=== PATIENT | female | born 1970 | race African-American/Black ===

== ENCOUNTER 2017-01-28 15:53 | Emergency (ER) | payer MEDICARE, MEDICAID ==
--- NOTE | 2017-01-28 17:57 | ER Document Report ---
ED Medical Screen (RME) - General Chief Complaint: Headache Stated Complaint: WEAKNESS Time Seen by Provider: 01/28/17 17:45 Mode of Arrival: Ambulatory Information source: Patient, Relative TRAVEL OUTSIDE OF THE [place] IN LAST 30 DAYS: No - HPI Onset: This morning Onset/Duration: Gradual, Constant Quality of pain: Dull Associated Symptoms: None Exacerbated by: Denies Relieved by: Denies Notes: 01/28/17 17:54 Patient is a 46-year-old female with history of hypertension and diabetes. Patient is somewhat noncompliant with her medications. Patient states she has not been feeling well today. She took her blood pressure this morning and it was 199/134. Patient also reports a headache. Some nausea. No syncope. No focal neurologic complaints. No chest pain or shortness of breath. Patient does not check her blood sugars at home. - Related Data Allergies/Adverse Reactions: hydromorphone HCl [From Dilaudid] Allergy (Unknown, Verified 01/28/17 16:16) Hives Penicillins Allergy (Verified 01/28/17 16:16) Sulfa (Sulfonamide Antibiotics) Allergy (Verified 01/28/17 16:16) Past Medical History - Social History Frequency of alcohol use: None Drug Abuse: Marijuana - Past Medical History Cardiac Medical History: Reports: Hx Hypertension Pulmonary Medical History: Reports: Hx Asthma Denies: Hx Tuberculosis Endocrine Medical History: Reports: Hx Diabetes Mellitus Type 1, Hx Diabetes Mellitus Type 2 Renal/ Medical History: Denies: Hx Peritoneal Dialysis Musculoskeltal Medical History: Reports Hx Arthritis, Reports Hx Musculoskeletal Deformity, Reports Hx Musculoskeletal Trauma Traumatic Medical History: Reports: Hx Fractures Past Surgical History: Reports: Hx Abdominal Surgery, Hx Section, Hx Orthopedic Surgery - left leg surgery. Denies: Hx Appendectomy, Hx Bowel Surgery, Hx Cholecystectomy, Hx Coronary Artery Bypass Graft, Hx Gastric Bypass Surgery, Hx Herniorrhaphy, Hx Hysterectomy, Hx Mastectomy, Hx Pacemaker, Hx Tonsillectomy, Hx Tubal Ligation - Immunizations Immunizations up to date: Yes Hx Diphtheria, Pertussis, Tetanus Vaccination: Yes Review of Systems - Review of Systems Constitutional: Weakness Cardiovascular: No symptoms reported Respiratory: No symptoms reported Gastrointestinal: No symptoms reported Neurological/Psychological: Headaches -: Yes All other systems reviewed and negative Physical Exam - Vital signs Vitals: Temp Pulse Resp BP Pulse Ox 98.0 F 91 16 184/109 H 100 07/12/17 16:15 01/28/17 16:15 01/28/17 16:15 01/28/17 16:15 01/28/17 16:15 Interpretation: Normal, Other - Mildly hypertensive at 184/109 - General General appearance: Appears well, Alert - HEENT Head: Normocephalic, Atraumatic Eyes: Normal Pupils: PERRL - Respiratory Respiratory status: No respiratory distress Chest status: Nontender Breath sounds: Normal Chest palpation: Normal - Cardiovascular Rhythm: Regular Heart sounds: Normal auscultation Murmur: No - Abdominal Inspection: Normal Distension: No distension Bowel sounds: Normal Tenderness: Nontender Organomegaly: No organomegaly - Back Back: Normal, Nontender - Extremities General upper extremity: Normal inspection, Nontender, Normal color, Normal ROM , Normal temperature General lower extremity: Normal inspection, Nontender, Normal color, Normal ROM , Normal temperature, Normal weight bearing. No: Rick's sign - Neurological Neuro grossly intact: Yes Cognition: Normal Orientation: AAOx4 January Coma Scale Eye Opening: Spontaneous January Coma Scale Verbal: Oriented January Coma Scale Motor: Obeys Commands January Coma Scale Total: 15 Speech: Normal Motor strength normal: LUE, RUE, LLE, RLE Sensory: Normal - Psychological Associated symptoms: Normal affect, Normal mood - Skin Skin Temperature: Warm Skin Moisture: Dry Skin Color: Normal Course - Re-evaluation Re-evalutation: 01/28/17 17:56 Patient with history of poorly controlled hypertension and diabetes. Will check labs and head CT. Patient does have history of DKA. Patient will likely require further monitoring, and evaluation by ED provider in the back treatment area. - Vital Signs Vital signs: Temp Pulse Resp BP Pulse Ox 98.0 F 91 16 184/109 H 100 01/28/17 16:15 01/28/17 16:15 01/28/17 16:15 01/28/17 16:15 01/28/17 16:15
[2017-01-28 18:18] LABS: ABSOLUTE EOSINOPHILS # (AUTO) 0.4 10^3/uL (0.0-0.6); ABSOLUTE LYMPHOCYTES (AUTO) 1.8 10^3/uL (0.5-4.7); ABSOLUTE MONOCYTES (AUTO) 0.5 10^3/uL (0.1-1.4); ABSOLUTE NEUT (AUTO) 3.8 10^3/uL (1.7-8.2); BASOPHILS % (AUTO) 0.6 % (0-2); EOSINOPHILS % (AUTO) 5.8 % (0-6); HEMATOCRIT 42.5 % (36.0-47.0); HEMOGLOBIN 14.2 g/dL (12.0-15.5); HGB HCT DIFFERENCE 0.1; LYMPHOCYTES % (AUTO) 27.7 % (13-45); MEAN CORPUSCULAR HEMOGLOBIN 30.3 pg (27.0-33.4); MEAN CORPUSCULAR HGB CONC 33.4 g/dL (32.0-36.0); MEAN CORPUSCULAR VOLUME 91 fl (80-97); MONOCYTES % (AUTO) 7.8 % (3-13); RED BLOOD COUNT 4.69 10^6/uL (3.72-5.28); RED CELL DISTRIBUTION WIDTH 13.6 % (11.5-14.0); SEGMENTED NEUTROPHILS % (AUTO) 58.1 % (42-78); WHITE BLOOD COUNT 6.6 10^3/uL (4.0-10.5)
--- NOTE | 2017-01-28 18:22 | RADIOLOGY REPORT (SQ) ---
EXAM DESCRIPTION: CT HEAD WITHOUT COMPLETED DATE/TIME: 01/28/2017 6:11 pm REASON FOR STUDY: headache, htn COMPARISON: None. TECHNIQUE: Axial images acquired through the brain without intravenous contrast. Images reviewed wi th bone, brain and subdural windows. Images stored on PACS. All CT scanners at this facility use dose modulation, iterative reconstruction, and/or weight based d osing when appropriate to reduce radiation dose to as low as reasonably achievable (ALARA). [facility]: Dose Right [facility]: CareDose [facility]: Dose Right [facility]: Teradose 4D [facility]: [employer] RADIATION DOSE: mGy. LIMITATIONS: None. FINDINGS: VENTRICLES: Normal size and contour. CEREBRUM: No masses. No hemorrhage. No midline shift. Normal araya/white matter differentiation. N o evidence for acute infarction. CEREBELLUM: No masses. No hemorrhage. No alteration of density. No evidence for acute infarction. EXTRAAXIAL SPACES: No fluid collections. No masses. ORBITS AND GLOBE: No intra- or extraconal masses. Normal contour of globe without masses. CALVARIUM: No fracture. PARANASAL SINUSES: No fluid or mucosal thickening. SOFT TISSUES: No mass or hematoma. OTHER: No other significant finding. IMPRESSION: NORMAL BRAIN CT WITHOUT CONTRAST. TECHNICAL DOCUMENTATION: JOB ID: [id number] Quality ID # [id number]: Final reports with documentation of one or more dose reduction techniques (e.g., Au tomated exposure control, adjustment of the mA and/or kV according to patient size, use of iterative reconstruction technique) 2010 [email or web address]- All Rights Reserved
[2017-01-28 18:40] LABS: ALANINE AMINOTRANSFERASE 20 U/L (9-52); ALBUMIN 3.6 g/dL (3.5-5.0); ALKALINE PHOSPHATASE 150 U/L (38-126); ANION GAP 8 (5-19); ASPARTATE AMINO TRANSFERASE 20 U/L (14-36); BILIRUBIN,DIRECT 0.4 mg/dL (0.0-0.4); BILIRUBIN,TOTAL 0.7 mg/dL (0.2-1.3); BLOOD UREA NITROGEN 21 mg/dL (7-20); CALCIUM 9.6 mg/dL (8.4-10.2); CARBON DIOXIDE 28 mmol/L (22-30); CHLORIDE 102 mmol/L (98-107); CREATININE RESULT 0.82 mg/dL (0.52-1.25); GLUCOSE 225 mg/dL (75-110); POTASSIUM 4.2 mmol/L (3.6-5.0); SODIUM 138.3 mmol/L (137-145); TOTAL PROTEIN 7.2 g/dL (6.3-8.2)
[2017-01-28] MEDS ORDERED: CLONIDINE HCL 0.2 MG TABLET PO ONE (19:07)
[2017-01-28] MEDS ORDERED: HYDROCODONE/ACETAMINOPHEN 5-325 MG TABLET PO ONE (19:07)
[2017-01-28 19:09] VITALS: BP 184/114
== END 2017-01-28 19:15 | disposition home or self-care (01) ==
LOC: ER 15:53
DX: I10 Essential (primary) hypertension (principal); R51 Headache; R11.0 Nausea; R53.1 Weakness; E11.9 Type 2 diabetes mellitus without complications; J45.909 Unspecified asthma, uncomplicated; Z79.899 Other long term (current) drug therapy; Z91.14 Patient's other noncompliance with medication regimen; Z88.5 Allergy status to narcotic agent; Z88.0 Allergy status to penicillin; Z88.2 Allergy status to sulfonamides
CPT/HCPCS: 99284; 36415; 85025; 80053; 84484; 70450; A9270 ×2

== ENCOUNTER 2017-07-21 09:20 | Emergency (ER) | payer MEDICARE, MEDICAID ==
[2017-07-21] MEDS ORDERED: NORMAL SALINE 1000 ML 1,000 ML IV ONE (10:12)
[2017-07-21] MEDS ORDERED: LISINOPRIL 10 MG TABLET PO ONE (10:23)
[2017-07-21] MEDS ORDERED: AMLODIPINE BESYLATE 5 MG TABLET PO ONE (10:24)
[2017-07-21 10:55] LABS: ABSOLUTE EOSINOPHILS # (AUTO) 0.4 10^3/uL (0.0-0.6); ABSOLUTE LYMPHOCYTES (AUTO) 1.5 10^3/uL (0.5-4.7); ABSOLUTE MONOCYTES (AUTO) 0.4 10^3/uL (0.1-1.4); ABSOLUTE NEUT (AUTO) 3.5 10^3/uL (1.7-8.2); BASOPHILS % (AUTO) 0.6 % (0-2); HEMATOCRIT 40.2 % (36.0-47.0); HEMOGLOBIN 13.4 g/dL (12.0-15.5); LYMPHOCYTES % (AUTO) 26.2 % (13-45); MEAN CORPUSCULAR HEMOGLOBIN 29.7 pg (27.0-33.4); MEAN CORPUSCULAR HGB CONC 33.4 g/dL (32.0-36.0); MEAN CORPUSCULAR VOLUME 89 fl (80-97); MONOCYTES % (AUTO) 7.3 % (3-13); PLATELET COUNT 164 10^3/uL (150-450); RED BLOOD COUNT 4.52 10^6/uL (3.72-5.28); SEGMENTED NEUTROPHILS % (AUTO) 59.9 % (42-78); TOTAL CELLS COUNTED % (AUTO) 100 %; WHITE BLOOD COUNT 5.9 10^3/uL (4.0-10.5)
--- NOTE | 2017-07-21 11:03 | RADIOLOGY REPORT (SQ) ---
EXAM DESCRIPTION: CT HEAD WITHOUT COMPLETED DATE/TIME: 07/21/2017 10:55 am REASON FOR STUDY: syncope COMPARISON: 01/28/2017 TECHNIQUE: Axial images acquired through the brain without intravenous contrast. Images reviewed wi th bone, brain and subdural windows. Images stored on PACS. All CT scanners at this facility use dose modulation, iterative reconstruction, and/or weight based d osing when appropriate to reduce radiation dose to as low as reasonably achievable (ALARA). [facility]: Dose Right [facility]: CareDose [facility]: Dose Right [facility]: Teradose 4D [facility]: Smart [employer] RADIATION DOSE: CT Rad equipment meets quality standard of care and radiation dose reduction techniq ues were employed. CTDIvol: 64.6 mGy. DLP: 1163 mGy-cm. mGy. LIMITATIONS: None. FINDINGS: VENTRICLES: Normal size and contour. CEREBRUM: No masses. No hemorrhage. No midline shift. No evidence for acute infarction. Normal gra y/white matter differentiation. No areas of low density in the white matter. CEREBELLUM: No masses. No hemorrhage. No alteration of density. No evidence for acute infarction. EXTRAAXIAL SPACES: No fluid collections. No masses. ORBITS AND GLOBE: No intra- or extraconal masses. Normal contour of globe without masses. CALVARIUM: No fracture. PARANASAL SINUSES: No fluid or mucosal thickening. SOFT TISSUES: No mass or hematoma. OTHER: No other significant finding. IMPRESSION: NORMAL BRAIN CT WITHOUT CONTRAST. EVIDENCE OF ACUTE STROKE: NO. COMMENT: Quality ID # [id number]: Final reports with documentation of one or more dose reduction techniques (e.g., Automated exposure control, adjustment of the mA and/or kV according to patient size, use of iterative reconstruction technique) TECHNICAL DOCUMENTATION: JOB ID: [id number] [employer]- All Rights Reserved
[2017-07-21 11:04] LABS: INTERNATIONAL RATION (INR) 0.88; PROTHROMBIN TIME 12.6 SEC (11.4-15.4)
--- NOTE | 2017-07-21 11:07 | RADIOLOGY REPORT (SQ) ---
EXAM DESCRIPTION: CT CERVICAL SPINE WITHOUT COMPLETED DATE/TIME: 07/21/2017 10:55 am REASON FOR STUDY: syncope COMPARISON: None. TECHNIQUE: Axial images acquired through the cervical spine without intravenous contrast. Images re viewed with lung, soft tissue and bone windows. Reconstructed coronal and sagittal MPR images review ed. Images stored on PACS. All CT scanners at this facility use dose modulation, iterative reconstruction, and/or weight based d osing when appropriate to reduce radiation dose to as low as reasonably achievable (ALARA). [facility]: Dose Right [facility]: CareDose [facility]: Dose Right [facility]: Teradose 4D [facility]: [employer] RADIATION DOSE: CT Rad equipment meets quality standard of care and radiation dose reduction techniq ues were employed. CTDIvol: 16.4 mGy. DLP: 303 mGy-cm. mGy. LIMITATIONS: None. FINDINGS: ALIGNMENT: Anatomic. MINERALIZATION: Normal. VERTEBRAL BODIES: No fractures or dislocation. DISCS: Mild to moderate arthritic change mid cervical spine. FACETS, LATERAL MASSES, POSTERIOR ELEMENTS: No fractures. No dislocation. No acute findings. HARDWARE: None in the spine. VISUALIZED RIBS: Limited evaluation. LUNG APICES AND SOFT TISSUES: Limited evaluation OTHER: Minus calcification is seen posterior to the spinous processes. IMPRESSION: No acute fracture or dislocation identified. TECHNICAL DOCUMENTATION: JOB ID: [id number] Quality ID # [id number]: Final reports with documentation of one or more dose reduction techniques (e.g., Au tomated exposure control, adjustment of the mA and/or kV according to patient size, use of iterative reconstruction technique) 2010 [employer]- All Rights Reserved
--- NOTE | 2017-07-21 11:09 | RADIOLOGY REPORT (SQ) ---
EXAM DESCRIPTION: CHEST PA/LAT COMPLETED DATE/TIME: 07/21/2017 10:59 am REASON FOR STUDY: syncope COMPARISON: None. EXAM PARAMETERS: NUMBER OF VIEWS: two views TECHNIQUE: Digital Frontal and Lateral radiographic views of the chest acquired. RADIATION DOSE: NA LIMITATIONS: Poor inspiration. FINDINGS: LUNGS AND PLEURA: No opacities, masses or pneumothorax. No pleural effusion. MEDIASTINUM AND HILAR STRUCTURES: No masses or contour abnormalities. HEART AND VASCULAR STRUCTURES: Heart normal size. No evidence for failure. BONES: No acute findings. HARDWARE: None in the chest. OTHER: No other significant finding. IMPRESSION: NO SIGNIFICANT RADIOGRAPHIC FINDING IN THE CHEST. TECHNICAL DOCUMENTATION: JOB ID: [id number] [employer]- All Rights Reserved
[2017-07-21 11:22] LABS: CREATINE KINASE MB 1.1 ng/mL (<4.55); TROPONIN I 0.018 ng/mL
[2017-07-21 11:28] LABS: BLOOD UREA NITROGEN 20 mg/dL (7-20); CALCIUM 9.8 mg/dL (8.4-10.2); CHLORIDE 95 mmol/L (98-107); GLUCOSE 327 mg/dL (75-110); POTASSIUM 4.3 mmol/L (3.6-5.0)
[2017-07-21 11:29] LABS: ALANINE AMINOTRANSFERASE 15 U/L (9-52); ALBUMIN 3.6 g/dL (3.5-5.0); ALKALINE PHOSPHATASE 163 U/L (38-126); ANION GAP 7 (5-19); ASPARTATE AMINO TRANSFERASE 24 U/L (14-36); BILIRUBIN,DIRECT 0.3 mg/dL (0.0-0.4); BILIRUBIN,TOTAL 0.4 mg/dL (0.2-1.3); CARBON DIOXIDE 34 mmol/L (22-30); CREATINE KINASE 72 U/L (30-135); SODIUM 135.7 mmol/L (137-145); TOTAL PROTEIN 6.8 g/dL (6.3-8.2)
[2017-07-21 13:29] VITALS: BP 149/92
[2017-07-21] MEDS ORDERED: PROCHLORPERAZINE EDISYLATE INJ 10 MG/2 ML VIAL IV ONE (13:50)
[2017-07-21] MEDS ORDERED: ONDANSETRON HCL INJ/PF 4 MG/2 ML SDV IV ONE (13:50)
--- NOTE | 2017-07-21 13:55 | ER Document Report ---
ED General - General Chief Complaint: Low Blood Sugar Stated Complaint: LOW BLOOD SUGAR Time Seen by Provider: 07/21/17 10:11 TRAVEL OUTSIDE OF THE [place] IN LAST 30 DAYS: No - HPI Patient complains to provider of: Syncope low blood sugar Notes: Patient coming in for evaluation of syncopal episode while at the grocery store. Patient states that she was walking outside when she felt lightheaded dizzy week and was lowered onto the ground. Patient did not hit her head according to the bystanders at bedside. Patient states that she was lowered gently. Patient states that she was feeling out of it however was able to tolerate glucose tablets and sugar at the store. Patient now is complaining of hip pain and right shoulder pain. Patient denies any fevers chills nausea vomiting diarrhea recent changes to her medications. Patient states her blood sugar normally runs between 200-300. Accu-Chek here was below 200. Patient is hypertensive patient states she did not take her blood pressure medications today. - Related Data Allergies/Adverse Reactions: hydromorphone HCl [From Dilaudid] Allergy (Unknown, Verified 07/21/17 09:22) Hives Penicillins Allergy (Verified 07/21/17 09:22) Sulfa (Sulfonamide Antibiotics) Allergy (Verified 07/21/17 09:22) Past Medical History - Social History Smoking Status: Former Smoker Chew tobacco use (# tins/day): No Frequency of alcohol use: None Drug Abuse: None Family History: DM Patient has suicidal ideation: No Patient has homicidal ideation: No - Past Medical History Cardiac Medical History: Reports: Hx Hypertension Pulmonary Medical History: Reports: Hx Asthma Denies: Hx Tuberculosis Endocrine Medical History: Reports: Hx Diabetes Mellitus Type 1, Hx Diabetes Mellitus Type 2 Renal/ Medical History: Denies: Hx Peritoneal Dialysis GI Medical History: Reports: Hx Pancreatitis Musculoskeltal Medical History: Reports Hx Arthritis, Reports Hx Musculoskeletal Deformity, Reports Hx Musculoskeletal Trauma Traumatic Medical History: Reports: Hx Fractures Past Surgical History: Reports: Hx Abdominal Surgery, Hx Section, Hx Orthopedic Surgery - left leg surgery. Denies: Hx Appendectomy, Hx Bowel Surgery, Hx Cholecystectomy, Hx Coronary Artery Bypass Graft, Hx Gastric Bypass Surgery, Hx Herniorrhaphy, Hx Hysterectomy, Hx Mastectomy, Hx Pacemaker, Hx Tonsillectomy, Hx Tubal Ligation - Immunizations Immunizations up to date: Yes Hx Diphtheria, Pertussis, Tetanus Vaccination: Yes Hx Pneumococcal Vaccination: 07/20/10 Review of Systems - Review of Systems Constitutional: No symptoms reported EENT: No symptoms reported Cardiovascular: Syncope Respiratory: No symptoms reported Gastrointestinal: No symptoms reported Genitourinary: No symptoms reported Female Genitourinary: No symptoms reported Musculoskeletal: No symptoms reported Skin: No symptoms reported Hematologic/Lymphatic: No symptoms reported Neurological/Psychological: No symptoms reported -: Yes All other systems reviewed and negative Physical Exam - Vital signs Vitals: Temp Pulse Resp BP Pulse Ox 98.3 F 87 16 194/120 H 100 07/21/17 09:27 07/21/17 09:27 07/21/17 09:27 07/21/17 09:27 07/21/17 09:27 Interpretation: Hypertensive - General General appearance: Appears well, Alert - HEENT Head: Normocephalic, Atraumatic Eyes: Normal Pupils: PERRL - Respiratory Respiratory status: No respiratory distress Chest status: Nontender Breath sounds: Normal Chest palpation: Normal - Cardiovascular Rhythm: Regular Heart sounds: Normal auscultation Murmur: No - Abdominal Inspection: Normal Distension: No distension Bowel sounds: Normal Tenderness: Nontender Organomegaly: No organomegaly - Back Back: Normal, Nontender - Extremities General upper extremity: Normal inspection, Nontender, Normal color, Normal ROM , Normal temperature General lower extremity: Normal inspection, Nontender, Normal color, Normal ROM , Normal temperature, Normal weight bearing. No: Rick's sign - Neurological Neuro grossly intact: Yes Cognition: Normal Orientation: AAOx4 [place] Coma Scale Eye Opening: Spontaneous [place] Coma Scale Verbal: Oriented January Coma Scale Motor: Obeys Commands January Coma Scale Total: 15 Speech: Normal Motor strength normal: LUE, RUE, LLE, RLE Sensory: Normal - Psychological Associated symptoms: Normal affect, Normal mood - Skin Skin Temperature: Warm Skin Moisture: Dry Skin Color: Normal Course - Re-evaluation Re-evalutation: 07/21/17 15:04 The patient presents with headache without signs of MANAGER PROTEIN bleed, stroke, infection , or other serious etiology. The patient is neurologically intact. Given the extremely low risk of these diagnoses further testing and evaluation for these possibilities does not appear to be indicated at this time. The patient has been instructed to return if the symptoms worsen or change in any way.. The patient has syncope as the patient's syncope is not suggestive of pulmonary embolus, cardiac ischemia, aortic dissection, or other serious etiology. Given the extremely low risk of these diagnoses further testing and evaluation for these possibilities does not appear to be indicated at this time. The patient has been instructed to return if the symptoms worsen or change in any way. - Vital Signs Vital signs: Temp Pulse Resp BP Pulse Ox 98.3 F 87 17 149/92 H 100 07/21/17 09:27 07/21/17 09:27 07/21/17 14:00 07/21/17 13:01 07/21/17 14:00 - Laboratory Result Diagrams: 07/21/17 10:35 07/21/17 10:35 Laboratory results interpreted by me: 07/21/17 07/21/17 07/21/17 09:25 10:35 12:25 Sodium 135.7 L Chloride 95 L Carbon Dioxide 34 H Glucose 327 H POC Glucose 192 H Alkaline Phosphatase 163 H Urine Protein 30 H Urine Glucose (UA) >=500 H Ur Leukocyte Esterase TRACE H Discharge - Discharge Clinical Impression: Syncope Qualifiers: Syncope type: unspecified Qualified Code(s): R55 - Syncope and collapse Diabetes Qualifiers: Diabetes mellitus type: type 1 Diabetes mellitus complication status: with unspecified complications Qualified Code(s): E10.8 - Type 1 diabetes mellitus with unspecified complications Hypertension Qualifiers: Hypertension type: unspecified Qualified Code(s): I10 - Essential (primary) hypertension Headache Qualifiers: Headache type: unspecified Headache chronicity pattern: unspecified pattern Intractability: not intractable Qualified Code(s): R51 - Headache Condition: Good Disposition: HOME, SELF-CARE Instructions: Diabetes ([facility]), Headache ([facility]), Syncopal Episode ([facility]) Additional Instructions: Your laboratory studies not show any acute findings no signs of significant infection or electrolyte abnormalities your CT of her head neck and chest x-ray are all normal to as well. At this time do not have a clear reason why she passed out today would highly recommend he drink plenty fluids to stay hydrated return to ER symptoms worsen. Follow-up with your primary care physician in 3- 5 days Prescriptions: Prochlorperazine Maleate [Compazine] 5 mg PO Q6 PRN #30 tablet PRN Reason: Referrals: LYLE ROBERSON DO [Primary Care Provider] - Follow up as needed
[2017-07-21 14:30] LABS: APPEARANCE,URINE SLIGHTLY-CLOUDY; BILIRUBIN,URINE NEGATIVE (NEGATIVE); COLOR,URINE YELLOW; GLUCOSE, URINE >=500 mg/dL (NEGATIVE); KETONES,URINE NEGATIVE (NEGATIVE); LEUKOCYTE ESTERASE,URINE TRACE (NEGATIVE); NITRITE,URINE NEGATIVE (NEGATIVE); PROTEIN,URINE 30 mg/dL (NEGATIVE); URINE SPECIFIC GRAVITY 1.015; UROBILINOGEN,URINE NEGATIVE mg/dL (<2.0)
--- NOTE | 2017-07-22 10:38 | EKG REPORT ---
SEVERITY:- ABNORMAL ECG - SINUS RHYTHM NONSPECIFIC T ABNORMALITIES, DIFFUSE LEADS : Confirmed by: Magali Leyva 22-Jul-2017 10:36:43
== END 2017-07-21 14:14 | disposition home or self-care (01) ==
LOC: ER 09:20
DX: R55 Syncope and collapse (principal); E10.8 Type 1 diabetes mellitus with unspecified complications; I10 Essential (primary) hypertension; Z87.891 Personal history of nicotine dependence
CPT/HCPCS: 93005; 99285; 96361; 96374; 96375; 36415; 82553; 82962; 82550; 85025; 85610; 80053; 81001; 84484; 71046; 70450; 72125; 93010; A9270 ×2; J0780; J2405; J7030

== ENCOUNTER 2017-08-16 10:31 | Emergency (ER) | payer MEDICARE, MEDICAID ==
--- NOTE | 2017-08-16 10:47 | ER Document Report ---
ED Medical Screen (RME) - General Chief Complaint: Abdominal Pain Stated Complaint: STOMACH/BACK PAIN Time Seen by Provider: 08/16/17 10:44 Mode of Arrival: Ambulatory Information source: Patient Notes: 47 yr old female with hx of diabetes presents with complaints of LUQ pain. Pt has hx of chronic pancreatitis I have greeted and performed a rapid initial assessment of this patient. A comprehensive ED assessment and evaluation of the patient, analysis of test results and completion of the medical decision making process will be conducted by additional ED providers. PHYSICAL EXAMINATION: GENERAL: Well-appearing, well-nourished and in no acute distress. HEAD: Atraumatic, normocephalic. EYES: Pupils equal round extraocular movements intact, conjunctiva are normal. ENT: Nares patent NECK: Normal range of motion Heart: Tachycardic LUNGS: No respiratory distress Musculoskeletal: Normal range of motion NEUROLOGICAL: Normal speech, normal gait. PSYCH: Normal mood, normal affect. SKIN: Warm, Dry, normal turgor, no rashes or lesions noted. TRAVEL OUTSIDE OF THE [place] IN LAST 30 DAYS: No - Related Data Allergies/Adverse Reactions: hydromorphone HCl [From Dilaudid] Allergy (Unknown, Verified 08/16/17 10:32) Hives Penicillins Allergy (Verified 08/16/17 10:32) Sulfa (Sulfonamide Antibiotics) Allergy (Verified 08/16/17 10:32) Past Medical History - Past Medical History Cardiac Medical History: Reports: Hx Hypertension Pulmonary Medical History: Reports: Hx Asthma Denies: Hx Tuberculosis Endocrine Medical History: Reports: Hx Diabetes Mellitus Type 1, Hx Diabetes Mellitus Type 2 Renal/ Medical History: Denies: Hx Peritoneal Dialysis GI Medical History: Reports: Hx Pancreatitis Musculoskeltal Medical History: Reports Hx Arthritis, Reports Hx Musculoskeletal Deformity, Reports Hx Musculoskeletal Trauma Traumatic Medical History: Reports: Hx Fractures Past Surgical History: Reports: Hx Abdominal Surgery, Hx Section, Hx Orthopedic Surgery - left leg surgery. Denies: Hx Appendectomy, Hx Bowel Surgery, Hx Cholecystectomy, Hx Coronary Artery Bypass Graft, Hx Gastric Bypass Surgery, Hx Herniorrhaphy, Hx Hysterectomy, Hx Mastectomy, Hx Pacemaker, Hx Tonsillectomy, Hx Tubal Ligation - Immunizations Immunizations up to date: Yes Hx Diphtheria, Pertussis, Tetanus Vaccination: Yes Physical Exam - Vital signs Vitals: Temp Pulse Resp BP Pulse Ox 97.8 F 114 H 18 143/93 H 100 08/16/17 10:36 08/16/17 10:36 08/16/17 10:36 08/16/17 10:36 08/16/17 10:36 Course - Vital Signs Vital signs: Temp Pulse Resp BP Pulse Ox 97.8 F 114 H 18 143/93 H 100 08/16/17 10:36 08/16/17 10:36 08/16/17 10:36 08/16/17 10:36 08/16/17 10:36
[2017-08-16] MEDS ORDERED: MORPHINE SULFATE 10 MG/ML INJ IV ONE (10:48)
[2017-08-16] MEDS ORDERED: INSULIN REG, HUMAN 100 UNIT/ML 3 ML VIAL (PYX) IV ONE (10:48)
[2017-08-16] MEDS ORDERED: NORMAL SALINE 1000 ML 1,000 ML IV ONE (10:48)
[2017-08-16] MEDS ORDERED: ONDANSETRON HCL INJ/PF 4 MG/2 ML SDV IV ONE (10:48)
--- NOTE | 2017-08-16 11:53 | ER Document Report ---
ED GI/ - General Chief Complaint: Abdominal Pain Stated Complaint: STOMACH/BACK PAIN Time Seen by Provider: 08/16/17 10:44 Mode of Arrival: Ambulatory Notes: Patient is complaining of pain in the epigastric and left upper quadrant region of the abdomen for a couple of days. She says the pain goes into her back. Patient has a history of chronic pancreatitis, and she had a pancreatic cyst removed in [place] in 2004. Ever since then, she has had occasional episodes of pancreatitis. She was at this hospital a couple of years ago when she had her last flare of the pancreatitis. She is nauseated but not vomiting. Has not had any diarrhea. Not having any fever. Patient has a history of insulin-dependent diabetes and her blood sugars have been running high. TRAVEL OUTSIDE OF THE [place] IN LAST 30 DAYS: No - Related Data Allergies/Adverse Reactions: hydromorphone HCl [From Dilaudid] Allergy (Unknown, Verified 08/16/17 10:32) Hives Penicillins Allergy (Verified 08/16/17 10:32) Sulfa (Sulfonamide Antibiotics) Allergy (Verified 08/16/17 10:32) Past Medical History - General Information source: Patient - Social History Smoking Status: Current Every Day Smoker Chew tobacco use (# tins/day): No Frequency of alcohol use: None Drug Abuse: Marijuana Family History: Reviewed & Not Pertinent, DM Patient has suicidal ideation: No Patient has homicidal ideation: No - Past Medical History Cardiac Medical History: Reports: Hx Hypertension Pulmonary Medical History: Reports: Hx Asthma Denies: Hx Tuberculosis Endocrine Medical History: Reports: Hx Diabetes Mellitus Type 1, Hx Diabetes Mellitus Type 2 GI Medical History: Reports: Hx Pancreatitis Musculoskeltal Medical History: Reports Hx Arthritis, Reports Hx Musculoskeletal Deformity, Reports Hx Musculoskeletal Trauma Traumatic Medical History: Reports: Hx Fractures Past Surgical History: Reports: Hx Abdominal Surgery - For pancreatic cyst in 2004, Hx Section, Hx Orthopedic Surgery - left leg surgery - Immunizations Immunizations up to date: Yes Hx Diphtheria, Pertussis, Tetanus Vaccination: Yes Hx Pneumococcal Vaccination: 07/20/10 Review of Systems - Review of Systems Notes: REVIEW OF SYSTEMS: CONSTITUTIONAL : Denies fever. EENT: Denies eye, ear, nose or mouth or throat pain or other symptoms. CARDIOVASCULAR: Denies chest pain. RESPIRATORY: Denies cough, chest congestion, or shortness of breath. GASTROINTESTINAL: See HPI. GENITOURINARY: Denies difficulty or painful urinating, urinary frequency, blood in urine. MUSCULOSKELETAL: Denies neck pain. Denies joint pain or swelling. Complains of pain in her back from the front where she has her pain in the left upper quadrant and epigastrium. No back spinal pain. SKIN: Denies rash or skin lesions. NEUROLOGICAL: Denies LOC or altered mental status. Denies headache. Denies sensory loss or motor deficits. ALL OTHER SYSTEMS REVIEWED AND NEGATIVE. Physical Exam - Vital signs Vitals: Temp Pulse Resp BP Pulse Ox 97.8 F 114 H 18 143/93 H 100 08/16/17 10:36 08/16/17 10:36 08/16/17 10:36 08/16/17 10:36 08/16/17 10:36 Interpretation: Tachycardic - Notes Notes: PHYSICAL EXAMINATION: GENERAL: Anxious, appears to be in pain. HEAD: Atraumatic, normocephalic. EYES: Pupils equal round and reactive to light, extraocular movements intact. ENT: oropharynx clear without exudates. Moist mucous membranes. NECK: Normal range of motion, supple. LUNGS: Breath sounds clear and equal bilaterally. HEART: Regular rate and rhythm without murmurs. ABDOMEN: Soft, tender in the epigastrium and in the left upper quadrant. No masses felt. No bruits heard. Some mild guarding, but no rebound. Bowel sounds are present. In retrospect, after seeing the patient CT scan results, there is mentioned a hernia of the ventral wall on the left side of the abdomen and on examination, there is some fullness noted there to palpation, and some tenderness, but certainly no evidence of incarceration of bowel. This area is around the patient's old incision in the left upper quadrant where she had her pancreatic cyst removed. Back: No tenderness throughout entire back. EXTREMITIES: Normal range of motion without pain. NEUROLOGICAL: Normal speech, normal gait. Normal sensory, motor, and reflex exams. Awake, alert, and oriented x3. Cranial nerves normal. PSYCH: Normal mood, normal affect. SKIN: Warm, dry, no rashes. Course - Re-evaluation Re-evalutation: 08/16/17 19:05 As we were about to discharge the patient, discharge vital signs were taken and patient systolic blood pressure was noted to be over 200. Patient is currently not taking any medications for her high blood pressure, although she listed it as a condition and her past medical history. Patient's being given the pill of lisinopril 20 mg--HCTZ 12.5 mg. I also wrote her a prescription for the same medication daily until she follows up with her primary care provider soon. - Vital Signs Vital signs: Temp Pulse Resp BP Pulse Ox 97.8 F 87 18 222/108 H 100 08/16/17 18:34 08/16/17 18:34 08/16/17 18:34 08/16/17 18:40 08/16/17 18:34 - Laboratory Result Diagrams: 08/16/17 11:30 08/16/17 13:00 Laboratory results interpreted by me: 08/16/17 08/16/17 08/16/17 11:30 12:35 13:00 RBC 5.46 H Hgb 16.4 H Hct 48.9 H RDW 14.4 H Sodium 134.8 L Glucose 357 H POC Glucose AST 39 H Alkaline Phosphatase 175 H Lipase 391.7 H Urine Glucose (UA) >=500 H Urine Ketones TRACE H Ur Leukocyte Esterase TRACE H 08/16/17 15:52 RBC Hgb Hct RDW Sodium Glucose POC Glucose 266 H AST Alkaline Phosphatase Lipase Urine Glucose (UA) Urine Ketones Ur Leukocyte Esterase Lipase of 397 noted. Not really high enough to diagnose pancreatitis. - Diagnostic Test Radiology reviewed: Image reviewed, Reports reviewed - CT scan of the abdomen reveals no evidence of an acute pancreatitis. Patient has large amount of stool in diagnosed with constipation by the radiologist. Also noted that the patient has a left upper quadrant hernia of the abdominal wall. No evidence of bowel incarceration there on CT scan. Discharge - Discharge Clinical Impression: Hypertension Abdominal pain Qualifiers: Abdominal location: left upper quadrant Qualified Code(s): R10.12 - Left upper quadrant pain Pancreatitis Qualifiers: Chronicity: chronic Pancreatitis type: unspecified pancreatitis type Qualified Code(s): K86.1 - Other chronic pancreatitis Condition: Stable Disposition: HOME, SELF-CARE Additional Instructions: ABDOMINAL PAIN: There are many causes of abdominal pain. Pain can mean a serious problem requiring surgery (such as appendicitis). It can also be an innocent problem that goes away on its own (such as a viral infection). Often, time must pass to determine the cause of pain. The physician does not feel that hospitalization is necessary, at present. Things may change within the next 24 hours. Call the doctor or come back for re- examination if any problems occur, such as: (1) Pain that becomes more severe, steady, or becomes concentrated in one specific area. Also, pain that is more severe with movement or coughing. (2) Vomiting that persists or becomes more frequent. (3) Blood in the vomitus, urine, or bowel movements. Blood in the stool may have a tarry or black appearance. (4) Shaking chills or fever greater than 100 degrees F. (5) The abdomen becomes more distended or swollen. (6) Bowel movements cease. (7) Failure to improve as expected. Mild, Chronic pancreatitis Pancreatitis is an inflammation of the pancreas, an organ at the back of your abdomen. The pancreas produces insulin and enzymes that digest your food. Pancreatitis can be caused by gallstones in the bile duct, by alcohol or viruses, or by excess fat or calcium in the blood stream. Occasionally, pancreatitis occurs when a stomach ulcer vazquez through into the pancreas. We try to find the cause of pancreatitis, but some tests can't be done until the pancreas heals. The usual symptoms of pancreatitis are pain in the pit of the stomach that goes straight through to the back, vomiting, and low-grade fever. Severe cases require hospital admission, but many patients with mild pancreatitis do well at home. You will probably need medicine for pain and for vomiting. Sometimes we prescribe medicine to decrease stomach acid secretion and to decrease flow of pancreatic juices. Start with a diet of clear liquids (soda pop, juices). When the pain is decreasing, you can add some simple starches (potato, toast, applesauce). Avoid proteins and fats until you are completely painfree. When you're better, your doctor may suggest treatment to prevent future pancreatitis (such as gallbladder removal). Avoid alcohol forever. Get immediate treatment for any future episodes. Contact your doctor at once or return here if you have increasing pain, shortness of breath, general swelling, increasing size of the abdomen, continued vomiting, muscle spasms, or other new symptoms. PAIN MEDICATION INJECTION: You have received an injection of a pain medication. You should experience significant pain relief within 45 minutes. This drug is a narcotic - - it will impair your judgement, slow your reaction time and make you sleepy ( as well as relieve your pain). Narcotics also can cause nausea. You should not drive, work with machinery, or perform any task requiring mental alertness until all effects of the medication are gone -- six to eight hours. Do not take any alcohol, or sedatives, and do not take any other medication without checking with your physician. ORAL NARCOTIC MEDICATION: You have been given a prescription for pain control. This medication is a narcotic. It's best taken with food, as nausea can result if taken on an empty stomach. Don't operate machinery or drive within six hours of taking this medication. Do not combine this medicine with alcohol, or with any medication which can cause sedation (such as cold tablets or sleeping pills) unless you get permission from the physician. Narcotics tend to cause constipation. If possible, drink plenty of fluids and eat a diet high in fiber and fruits. Hernia You have a hernia of your left abdominal wall a hernia forms at a weak spot in the abdominal wall. Bowel slips out of the abdominal cavity into the weak spot. Hernias tend to occur in the groin (especially in males), the fold of the thigh, the naval, or at a surgical scar. Surgical repair of the defect is usually necessary. The problem tends to get worse. It's important that you follow up as recommended. For now, you should avoid straining, heavy lifting, and vigorous exercise. Complications occur if the hernia becomes tightly stuck. You should come back immediately if the area becomes increasingly painful, swollen, or discolored, or if you develop abdominal pain and vomiting. CONSTIPATION: Constipation is a common problem. It is especially likely as you get older. Constipation is a common cause of abdominal pain, but sometimes causes no symptoms at all. Causes of constipation include certain medications, dehydration, diets, inactivity, and low-fiber intake. Rarely, it can be a symptom of underlying disease. The physician has evaluated you for this. Avoid constipation by eating a diet high in fiber, fruits, and vegetables. Drink plenty of liquids. Get regular exercise. If possible, avoid constipating medicines like narcotic pain medication. Some vitamin tablets can cause constipation. Stool softeners may be needed for difficult cases. An excellent stool softener is Konsyl which is available at [employer], and [employer]. Just add a teaspoon to a glass of pineapple or orange juice daily or twice a day if needed. Laxatives are useful for occasional constipation. You should use them only when necessary. Too-frequent use can make your bowels dependent on them. Some over the counter laxatives available without prescription are: Milk of Magnesia, 1-2 tablespoons twice a day Dulcolax, 5 mg pill or 10 mg suppository. Citrate of Magnesia, 4-5 ounces a day for a day or two For acute constipation, Fleet's Enemas and Dulcolax suppositories are helpful. Chronic, terminal gauger supervisor use of laxatives or enemas is not a good idea. Your bowel may become dependant on them. You do not need to have a bowel movement every day. Many people do fine with a bowel movement every three or four days. You should call your doctor or return for re-evaluation if you pass blood in the stool, or if you develop fever or increasing abdominal pain. BULK LAXATIVES: Bulk laxatives make the stool softer and bulkier. They're useful for preventing constipation. You can choose between psyllium, methylcellulose, and polycarbophil. They are available without a prescription. Psyllium brand names include Konsyl, Metamucil, Perdiem, Effer-Syllium and Hydrocil. It's available as powder, flavored drink powder, or chewable. The usual dose of psyllium powder is one heaping teaspoon in water each morning, increasing to twice a day if needed. [place] juice can disguise the slightly grainy texture. Methylcellulose is marketed as Citrucel and other brands. The average dose is two grams in a cup of water one to three times a day. Polycarbophil is marketed as Fiber-Con. Take two tablets with a cup of water one to three times a day. FOLLOW-UP CARE: If you have been referred to a physician for follow-up care, call the physician s office for an appointment as you were instructed or within the next two days. If you experience worsening or a significant change in your symptoms, notify the physician immediately or return to the Emergency Department at any time for re-evaluation. Follow-up with Dr. Waller, your primary care doctor, regarding her pain management. Chronic Pain Control Stress, inactivity, and depression make pain more severe regardless of the cause of the pain. Stress and poor physical condition can cause pain such as headaches and backache. Relaxation: Rest in a quiet place with your eyes closed for 20 minutes twice daily. Concentrate on a pleasant image, or simply "feel" your breathing. Clear your mind. Stress management: Deal with your "stressors." Either take action, or eliminate the stressor from your life. Don't let things hang over you. Accept those things you can't change. Nutrition: Eat small, balanced meals -- don't skip, don't overeat. Meals should be high-carbohydrate, low-sugar, low-fat. Exercise: Exercise helps painful conditions and eases stress. Get 30 minutes of moderate exercise, five days a week. Do an activity that does not flare your pain. Precautions: Pain which continues to disrupt daily activities, or which changes in nature, requires a medical evaluation. Pain Clinic referral is available. We do not manage chronic pain in the Emergency Department. We will try to appropriately help you through an acute flare of your chronic painful condition , but for on-going chronic pain that does not improve, you will need to see your private doctor or painter supervisor. We do not provide repeated medication management of chronic painful conditions. If you wish, we can provide the name of local pain management physicians. Prescriptions: Oxycodone HCl/Acetaminophen [Percocet 5-325 mg Tablet] 1 - 2 tab PO Q4HP PRN #8 tablet PRN Reason: Lisinopril/Hydrochlorothiazide [Lisinopril-Hctz 20-12.5 mg Tab] 1 each PO DAILY #15 tablet Referrals: LYLE WALLER DO [Primary Care Provider] - Follow up as needed
[2017-08-16 12:05] LABS: ABSOLUTE EOSINOPHILS # (AUTO) 0.2 10^3/uL (0.0-0.6); ABSOLUTE LYMPHOCYTES (AUTO) 1.3 10^3/uL (0.5-4.7); ABSOLUTE MONOCYTES (AUTO) 0.3 10^3/uL (0.1-1.4); ABSOLUTE NEUT (AUTO) 4.1 10^3/uL (1.7-8.2); BASOPHILS % (AUTO) 0.6 % (0-2); EOSINOPHILS % (AUTO) 3.8 % (0-6); HEMATOCRIT 48.9 % (36.0-47.0); HEMOGLOBIN 16.4 g/dL (12.0-15.5); LYMPHOCYTES % (AUTO) 22.3 % (13-45); MEAN CORPUSCULAR HGB CONC 33.5 g/dL (32.0-36.0); MEAN CORPUSCULAR VOLUME 90 fl (80-97); PLATELET COUNT 186 10^3/uL (150-450); RED BLOOD COUNT 5.46 10^6/uL (3.72-5.28); RED CELL DISTRIBUTION WIDTH 14.4 % (11.5-14.0); SEGMENTED NEUTROPHILS % (AUTO) 68.3 % (42-78); TOTAL CELLS COUNTED % (AUTO) 100 %
[2017-08-16] MEDS ORDERED: HYDROMORPHONE HCL INJ/PF 2 MG/ML AMPULE IV ONE ×2 (13:10→16:02)
[2017-08-16] MEDS ORDERED: DIPHENHYDRAMINE HCL 50 MG/ML VIAL IV ONE (13:11)
[2017-08-16 13:12] LABS: APPEARANCE,URINE SLIGHTLY-CLOUDY; BILIRUBIN,URINE NEGATIVE (NEGATIVE); COLOR,URINE STRAW; GLUCOSE, URINE >=500 mg/dL (NEGATIVE); KETONES,URINE TRACE mg/dL (NEGATIVE); LEUKOCYTE ESTERASE,URINE TRACE (NEGATIVE); NITRITE,URINE NEGATIVE (NEGATIVE); PROTEIN,URINE NEGATIVE (NEGATIVE); UROBILINOGEN,URINE NEGATIVE mg/dL (<2.0)
[2017-08-16 13:13] LABS: VENOUS BLOOD BASE EXCESS -0.1 mmol/L; VENOUS BLOOD HCO3 27.1 mmol/L (20-32); VENOUS BLOOD PCO2 54.4 mmHg (35-63); VENOUS BLOOD PH 7.32 (7.30-7.42)
[2017-08-16 13:29] LABS: ALANINE AMINOTRANSFERASE 15 U/L (9-52); ALBUMIN 3.7 g/dL (3.5-5.0); ALKALINE PHOSPHATASE 175 U/L (38-126); ANION GAP 7 (5-19); ASPARTATE AMINO TRANSFERASE 39 U/L (14-36); BILIRUBIN,DIRECT 0.3 mg/dL (0.0-0.4); BILIRUBIN,TOTAL 0.6 mg/dL (0.2-1.3); BLOOD UREA NITROGEN 18 mg/dL (7-20); CALCIUM 9.8 mg/dL (8.4-10.2); CARBON DIOXIDE 29 mmol/L (22-30); CHLORIDE 99 mmol/L (98-107); GLUCOSE 357 mg/dL (75-110); LIPASE 391.7 U/L (23-300); POTASSIUM 4.1 mmol/L (3.6-5.0); SODIUM 134.8 mmol/L (137-145); TOTAL PROTEIN 7.1 g/dL (6.3-8.2)
[2017-08-16 13:55] LABS: URINE AMPHETAMINES SCREEN NEGATIVE; URINE BARBITURATES SCREEN NEGATIVE; URINE BENZODIAZEPINES SCREEN NEGATIVE; URINE COCAINE SCREEN NEGATIVE; URINE MARIJUANA (THC) SCREEN UNCONFIRMED POSITIVE; URINE METHADONE SCREEN NEGATIVE; URINE PHENCYCLIDINE SCREEN NEGATIVE
--- NOTE | 2017-08-16 16:43 | RADIOLOGY REPORT (SQ) ---
EXAM DESCRIPTION: CT ABD/PELVIS WITH IV ORAL COMPLETED DATE/TIME: 08/16/2017 4:23 pm REASON FOR STUDY: Epig, LUQ pain, Hx pancreatitis, cyst [id number] COMPARISON: CT abdomen and pelvis 10/04/2011, 08/11/2010 TECHNIQUE: CT scan of the abdomen and pelvis performed using helical scanning technique with dynamic intravenous contrast injection. Oral contrast was also administered. Images reviewed with lung, sof t tissue, and bone windows. Reconstructed coronal and sagittal MPR images reviewed. Delayed images fo r evaluation of the urinary system also acquired. All images stored on PACS. All CT scanners at this facility use dose modulation, iterative reconstruction, and/or weight based d osing when appropriate to reduce radiation dose to as low as reasonably achievable (ALARA). [facility]: Dose Right [facility]: CareDose [facility]: Dose Right [facility]: Teradose 4D [facility]: Medxnote CONTRAST TYPE AND DOSE: contrast/concentration: Isovue 370.00 mg/ml; Total Contrast Delivered: 57.0 ml; Total Saline Delivered: 38.1 ml RENAL FUNCTION: Creatinine 0.84 RADIATION DOSE: CT Rad equipment meets quality standard of care and radiation dose reduction techniq ues were employed. CTDIvol: 4.8 - 6.0 mGy. DLP: 538 mGy-cm.. LIMITATIONS: None. FINDINGS: LOWER CHEST: No consolidation or pleural effusion. LIVER: There is an elongated left hepatic lobe extending anterior to the stomach and spleen. No uriah s. No dilated ducts. SPLEEN: Normal size. PANCREAS: No significant calcifications. No adjacent inflammation or peripancreatic fluid collections . Pancreatic duct not dilated. GALLBLADDER: No identified stones by CT criteria. No inflammatory changes to suggest cholecystitis. ADRENAL GLANDS: No significant masses or asymmetry. RIGHT KIDNEY AND URETER: No significant calcifications. No hydronephrosis or hydroureter. LEFT KIDNEY AND URETER: Atrophic left kidney with cortical scarring and heterogeneous enhancement, si milar appearance with the comparison study. No significant calcifications. No hydronephrosis or h ydroureter. AORTA AND VESSELS: No abdominal aortic aneurysm. RETROPERITONEUM: No retroperitoneal adenopathy, hemorrhage or masses. BOWEL AND PERITONEAL CAVITY: No dilated bowel loops or inflammatory changes. No free fluid or free ai r. Large amount of stool throughout the colon. APPENDIX: Normal. PELVIS: The urinary bladder is distended. The uterus is present. No free fluid ABDOMINAL WALL: There is a ventral hernia along the left lateral abdominal wall with loops of colon p rotruding into the hernia defect. BONES: Degenerative disc disease at L5-S1. IMPRESSION: 1. No peripancreatic inflammatory changes or fluid collections. 2. Atrophic left kidney with cortical scarring and heterogeneous enhancement, may be secondary to eran or infections or infarcts. 3. Large amount of stool within the colon. TECHNICAL DOCUMENTATION: JOB ID: [id number] [facility] Quality ID # [id number]: Final reports with documentation of one or more dose reduction techniques (e.g., Au tomated exposure control, adjustment of the mA and/or kV according to patient size, use of iterative reconstruction technique) 2010 [employer]- All Rights Reserved
[2017-08-16 18:41] VITALS: BP 222/108
[2017-08-16] MEDS ORDERED: LISINOPRIL 10 MG TABLET PO ONE (18:42)
== END 2017-08-16 18:53 | disposition home or self-care (01) ==
LOC: ER 10:31
DX: K86.1 Other chronic pancreatitis (principal); K43.9 Ventral hernia without obstruction or gangrene; K59.00 Constipation, unspecified; R10.13 Epigastric pain; R10.12 Left upper quadrant pain; R11.0 Nausea; I10 Essential (primary) hypertension; J45.909 Unspecified asthma, uncomplicated; E11.9 Type 2 diabetes mellitus without complications; Z79.4 Long term (current) use of insulin; F17.200 Nicotine dependence, unspecified, uncomplicated; Z88.5 Allergy status to narcotic agent; Z88.0 Allergy status to penicillin; Z88.2 Allergy status to sulfonamides
CPT/HCPCS: 96376; 99284; 96374; 96375; 36415; 82962; 80307 ×2; 83690; 85025; 80053; 81001; 82803; 74177; J1200; J2270; J1170; A9270 ×2; J2405; J7030; J1815

== ENCOUNTER 2017-08-26 14:12 | Emergency (ER) | payer MEDICARE, MEDICAID ==
--- NOTE | 2017-08-26 16:03 | ER Document Report ---
ED Medical Screen (RME) - General Chief Complaint: Constipation Stated Complaint: CONSTIPATION Time Seen by Provider: 08/26/17 16:00 Notes: Patient is a 47 year old female who presents to the ED with constipation for 10 days, Dr Waller has been treating her as an outpatient. She denies vomiting but with nausea. Admits to flatus, denies burping. PMH: chronic pancreatitis, on chronic narcotics I have greeted and performed a rapid initial assessment of this patient. A comprehensive ED assessment and evaluation of the patient, analysis of test results and completion of the medical decision making process will be conducted by additional ED providers. TRAVEL OUTSIDE OF THE [place] IN LAST 30 DAYS: No - Related Data Allergies/Adverse Reactions: hydromorphone HCl [From Dilaudid] Allergy (Unknown, Verified 08/26/17 16:00) Hives Penicillins Allergy (Verified 08/26/17 16:00) Sulfa (Sulfonamide Antibiotics) Allergy (Verified 08/26/17 16:00) Past Medical History - Past Medical History Cardiac Medical History: Reports: Hx Hypertension Pulmonary Medical History: Reports: Hx Asthma Denies: Hx Tuberculosis Endocrine Medical History: Reports: Hx Diabetes Mellitus Type 1, Hx Diabetes Mellitus Type 2 Renal/ Medical History: Denies: Hx Peritoneal Dialysis GI Medical History: Reports: Hx Pancreatitis Musculoskeltal Medical History: Reports Hx Arthritis, Reports Hx Musculoskeletal Deformity, Reports Hx Musculoskeletal Trauma Traumatic Medical History: Reports: Hx Fractures Past Surgical History: Reports: Hx Abdominal Surgery - For pancreatic cyst in 2004, Hx Section, Hx Orthopedic Surgery - left leg surgery. Denies: Hx Appendectomy, Hx Bowel Surgery, Hx Cholecystectomy, Hx Coronary Artery Bypass Graft, Hx Gastric Bypass Surgery, Hx Herniorrhaphy, Hx Hysterectomy, Hx Mastectomy, Hx Pacemaker, Hx Tonsillectomy, Hx Tubal Ligation - Immunizations Immunizations up to date: Yes Hx Diphtheria, Pertussis, Tetanus Vaccination: Yes Physical Exam - Vital signs Vitals: Temp Pulse Resp BP Pulse Ox 98.2 F 95 20 154/101 H 99 08/26/17 14:53 08/26/17 14:53 08/26/17 14:53 08/26/17 14:53 08/26/17 14:53 - Notes Notes: PHYSICAL EXAM GENERAL: Alert, interacts well. LUNGS: Clear to auscultation bilaterally, no wheezes, rales, or rhonchi. No respiratory distress. HEART: Regular rate and rhythm. No murmurs, gallops, or rubs. ABDOMEN: Soft, nondistended, nontender. No guarding, rebound, or rigidity. EXTREMITIES: Moves all 4 extremities spontaneously. No edema, radial and dorsalis pedis pulses 2/4 bilaterally. No cyanosis. NEUROLOGICAL: Alert and oriented x4. Normal speech. PSYCH: Normal affect, normal mood. SKIN: Warm, dry, normal turgor. No rashes or lesions noted. Course - Vital Signs Vital signs: Temp Pulse Resp BP Pulse Ox 98.2 F 95 20 154/101 H 99 08/26/17 14:53 08/26/17 14:53 08/26/17 14:53 08/26/17 14:53 08/26/17 14:53
--- NOTE | 2017-08-26 17:06 | RADIOLOGY REPORT (SQ) ---
EXAM DESCRIPTION: ACUTE ABDOMEN SERIES COMPLETED DATE/TIME: 08/26/2017 4:54 pm REASON FOR STUDY: constipation COMPARISON: None. NUMBER OF VIEWS: Three views. TECHNIQUE: Frontal chest, supine abdomen and upright/decubitus abdomen radiographic images acquired. LIMITATIONS: None. FINDINGS: CHEST: Lungs clear of infiltrates. FREE AIR: None. No abnormal gas collections. BOWEL GAS PATTERN: Nonobstructive pattern. No dilated loops or air fluid levels. A moderate amount o f gas and fecal material is identified throughout the colon CALCIFICATIONS: No suspicious calcifications. HARDWARE: None in the abdomen. SOFT TISSUES: No gross mass or suggestion of organomegaly. BONES: No acute fracture. No worrisome bone lesions. OTHER: No other significant finding. IMPRESSION: NO RADIOGRAPHIC EVIDENCE FOR ACUTE ABDOMINAL DISEASE. TECHNICAL DOCUMENTATION: JOB ID: [id number] [employer]- All Rights Reserved
[2017-08-26 18:00] LABS: ABSOLUTE EOSINOPHILS # (AUTO) 0.3 10^3/uL (0.0-0.6); ABSOLUTE LYMPHOCYTES (AUTO) 1.9 10^3/uL (0.5-4.7); ABSOLUTE MONOCYTES (AUTO) 0.5 10^3/uL (0.1-1.4); ABSOLUTE NEUT (AUTO) 4.1 10^3/uL (1.7-8.2); BASOPHILS % (AUTO) 0.5 % (0-2); EOSINOPHILS % (AUTO) 4.1 % (0-6); HEMATOCRIT 42.6 % (36.0-47.0); HEMOGLOBIN 14.3 g/dL (12.0-15.5); LYMPHOCYTES % (AUTO) 28.2 % (13-45); MEAN CORPUSCULAR HEMOGLOBIN 30.1 pg (27.0-33.4); MEAN CORPUSCULAR HGB CONC 33.5 g/dL (32.0-36.0); MEAN CORPUSCULAR VOLUME 90 fl (80-97); MONOCYTES % (AUTO) 7.5 % (3-13); PLATELET COUNT 201 10^3/uL (150-450); RED BLOOD COUNT 4.75 10^6/uL (3.72-5.28); RED CELL DISTRIBUTION WIDTH 14.3 % (11.5-14.0); SEGMENTED NEUTROPHILS % (AUTO) 59.7 % (42-78); TOTAL CELLS COUNTED % (AUTO) 100 %; WHITE BLOOD COUNT 6.8 10^3/uL (4.0-10.5)
[2017-08-26 18:27] LABS: ALANINE AMINOTRANSFERASE 11 U/L (9-52); ALBUMIN 4.3 g/dL (3.5-5.0); ALKALINE PHOSPHATASE 177 U/L (38-126); ANION GAP 11 (5-19); ASPARTATE AMINO TRANSFERASE 16 U/L (14-36); BILIRUBIN,DIRECT 0.2 mg/dL (0.0-0.4); BILIRUBIN,TOTAL 0.4 mg/dL (0.2-1.3); BLOOD UREA NITROGEN 24 mg/dL (7-20); CALCIUM 10.3 mg/dL (8.4-10.2); CARBON DIOXIDE 31 mmol/L (22-30); CHLORIDE 92 mmol/L (98-107); LIPASE 312.6 U/L (23-300); POTASSIUM 4.7 mmol/L (3.6-5.0); SODIUM 134.4 mmol/L (137-145); TOTAL PROTEIN 7.2 g/dL (6.3-8.2)
[2017-08-26 18:35] LABS: GLUCOSE 505 mg/dL (75-110)
[2017-08-26] MEDS ORDERED: NORMAL SALINE 1000 ML 1,000 ML IV ONE (18:38)
[2017-08-26] MEDS ORDERED: INSULIN REG, HUMAN 100 UNIT/ML 3 ML VIAL (PYX) IV ONE (18:38)
--- NOTE | 2017-08-26 18:45 | ER Document Report ---
ED GI/ - General Chief Complaint: Constipation Stated Complaint: CONSTIPATION Time Seen by Provider: 08/26/17 16:00 Mode of Arrival: Ambulatory Information source: Patient, Relative TRAVEL OUTSIDE OF THE [place] IN LAST 30 DAYS: No - HPI Patient complains to provider of: Abdominal pain - pt states she has not had a BM for over a week -- she has tried enemas and sorbitol without success. She is on narcotic therapy but she states she has not taken her pain meds in several days. Also states he BS has been elevated at home. - Related Data Allergies/Adverse Reactions: hydromorphone HCl [From Dilaudid] Allergy (Unknown, Verified 08/26/17 16:00) Hives Penicillins Allergy (Verified 08/26/17 16:00) Sulfa (Sulfonamide Antibiotics) Allergy (Verified 08/26/17 16:00) Past Medical History - General Information source: Patient, Relative - Social History Smoking Status: Current Every Day Smoker Cigarette use (# per day): Yes Chew tobacco use (# tins/day): No Smoking Education Provided: Yes Frequency of alcohol use: Occasional Drug Abuse: Marijuana Family History: Reviewed & Not Pertinent, DM Patient has suicidal ideation: No Patient has homicidal ideation: No - Past Medical History Cardiac Medical History: Reports: Hx Hypertension Pulmonary Medical History: Reports: Hx Asthma Denies: Hx Tuberculosis Endocrine Medical History: Reports: Hx Diabetes Mellitus Type 1, Hx Diabetes Mellitus Type 2 Renal/ Medical History: Denies: Hx Peritoneal Dialysis GI Medical History: Reports: Hx Pancreatitis Musculoskeltal Medical History: Reports Hx Arthritis, Reports Hx Musculoskeletal Deformity, Reports Hx Musculoskeletal Trauma Traumatic Medical History: Reports: Hx Fractures Past Surgical History: Reports: Hx Abdominal Surgery - For pancreatic cyst in 2004, Hx Section, Hx Orthopedic Surgery - left leg surgery. Denies: Hx Appendectomy, Hx Bowel Surgery, Hx Cholecystectomy, Hx Coronary Artery Bypass Graft, Hx Gastric Bypass Surgery, Hx Herniorrhaphy, Hx Hysterectomy, Hx Mastectomy, Hx Pacemaker, Hx Tonsillectomy, Hx Tubal Ligation - Immunizations Immunizations up to date: Yes Hx Diphtheria, Pertussis, Tetanus Vaccination: Yes Hx Pneumococcal Vaccination: 07/20/10 Review of Systems - Review of Systems Constitutional: No symptoms reported EENT: No symptoms reported Cardiovascular: No symptoms reported Respiratory: No symptoms reported Gastrointestinal: See HPI, Abdominal pain, Constipation Musculoskeletal: No symptoms reported Skin: No symptoms reported Hematologic/Lymphatic: No symptoms reported -: Yes All other systems reviewed and negative Physical Exam - Vital signs Vitals: Temp Pulse Resp BP Pulse Ox 98.2 F 95 20 154/101 H 99 08/26/17 14:53 08/26/17 14:53 08/26/17 14:53 08/26/17 14:53 08/26/17 14:53 - General General appearance: Appears well In distress: Mild - HEENT Head: Normocephalic Mucous membranes: Normal Pharynx: Normal Neck: Normal - Respiratory Respiratory status: No respiratory distress Breath sounds: Normal - Cardiovascular Rhythm: Regular Heart sounds: Normal auscultation - Abdominal Inspection: Normal Distension: No distension Bowel sounds: Normal Tenderness: Tender - min TTP diffusely without peritoneal signs Organomegaly: No organomegaly Course - Re-evaluation Re-evalutation: 08/26/17 20:50 pt. feltt better after IVF and insulin - repeat FSBS is 312. She has refused enema in ED so we have mutually agreed to try Golytely - Vital Signs Vital signs: Temp Pulse Resp BP Pulse Ox 98.2 F 95 20 154/101 H 99 08/26/17 14:53 08/26/17 14:53 08/26/17 14:53 08/26/17 14:53 08/26/17 14:53 - Laboratory Result Diagrams: 08/26/17 17:37 08/26/17 17:37 Laboratory results interpreted by me: 08/26/17 08/26/17 17:37 17:37 RDW 14.3 H Sodium 134.4 L Chloride 92 L Carbon Dioxide 31 H BUN 24 H Est GFR ( Amer) 59 L Est GFR (Non-Af Amer) 49 L Glucose 505 H* Calcium 10.3 H Alkaline Phosphatase 177 H Lipase 312.6 H - Diagnostic Test Radiology reviewed: Reports reviewed - neg obstruction Discharge - Discharge Clinical Impression: Hyperglycemia Constipation Qualifiers: Constipation type: other constipation type Qualified Code(s): K59.09 - Other constipation Condition: Stable Disposition: HOME, SELF-CARE Additional Instructions: rest, increase fluids, take meds as prescribed, return if worse Prescriptions: [id number]/Sod Sulf,Bicarb,Cl/KCl [Golytely Packet] 1 each PO ASDIR PRN #1 [email or web address] PRN Reason: Referrals: LYLE ROBERSON, [Primary Care Provider] - Follow up as needed
[2017-08-26 21:24] VITALS: BP 129/94
== END 2017-08-26 21:24 | disposition home or self-care (01) ==
LOC: ER 14:12
DX: K59.09 Other constipation (principal); E11.65 Type 2 diabetes mellitus with hyperglycemia; R10.9 Unspecified abdominal pain; F17.210 Nicotine dependence, cigarettes, uncomplicated; I10 Essential (primary) hypertension; Z88.6 Allergy status to analgesic agent; Z88.0 Allergy status to penicillin; Z88.2 Allergy status to sulfonamides
CPT/HCPCS: 99284; 96360; 36415; 82962; 83690; 85025; 80053; 74022; A9270; J7030; J1815

== ENCOUNTER 2017-10-03 21:27 | Emergency (ER) | payer MEDICARE, MEDICAID ==
[2017-10-03] MEDS ORDERED: NORMAL SALINE 1000 ML 1,000 ML IV ONE (22:38)
[2017-10-03] MEDS ORDERED: ONDANSETRON HCL INJ/PF 4 MG/2 ML SDV IV ONE (22:38)
[2017-10-03 23:41] LABS: ABSOLUTE EOSINOPHILS # (AUTO) 0.3 10^3/uL (0.0-0.6); ABSOLUTE LYMPHOCYTES (AUTO) 1.4 10^3/uL (0.5-4.7); ABSOLUTE MONOCYTES (AUTO) 0.8 10^3/uL (0.1-1.4); ABSOLUTE NEUT (AUTO) 6.9 10^3/uL (1.7-8.2); BASOPHILS % (AUTO) 0.5 % (0-2); EOSINOPHILS % (AUTO) 3.6 % (0-6); HEMATOCRIT 39.5 % (36.0-47.0); HEMOGLOBIN 13.6 g/dL (12.0-15.5); LYMPHOCYTES % (AUTO) 14.8 % (13-45); MEAN CORPUSCULAR HEMOGLOBIN 30.4 pg (27.0-33.4); MEAN CORPUSCULAR HGB CONC 34.5 g/dL (32.0-36.0); MEAN CORPUSCULAR VOLUME 88 fl (80-97); MONOCYTES % (AUTO) 8.2 % (3-13); PLATELET COUNT 196 10^3/uL (150-450); RED BLOOD COUNT 4.49 10^6/uL (3.72-5.28); RED CELL DISTRIBUTION WIDTH 15.1 % (11.5-14.0); SEGMENTED NEUTROPHILS % (AUTO) 72.9 % (42-78); TOTAL CELLS COUNTED % (AUTO) 100 %; WHITE BLOOD COUNT 9.5 10^3/uL (4.0-10.5)
--- NOTE | 2017-10-04 00:13 | ER Document Report ---
ED General - General Chief Complaint: Dizziness Stated Complaint: VOMITING Time Seen by Provider: 10/03/17 22:32 Notes: Patient is a 47-year-old female with a past medical history of diabetes with insulin dependence, recurrent pancreatitis, marijuana abuse, who presents with 24 hours of generalized abdominal pain worse in the epigastrium with associated nausea, vomiting and chills. She describes her pain as a stabbing, constant pain. Eating and drinking worsens the pain. Nothing improves the pain. She states this feels very similar to when she has had exacerbations of her abdominal pain related to chronic pancreatitis in the past. She has not seen her primary care doctor regarding today's concerns. She denies any fever, headache, neck pain, weakness or numbness. No melena, hematochezia or hematemesis. She notes that she has been able to tolerate fluids today. TRAVEL OUTSIDE OF THE [place] IN LAST 30 DAYS: No - Related Data Allergies/Adverse Reactions: hydromorphone HCl [From Dilaudid] Allergy (Unknown, Verified 08/26/17 16:00) Hives Penicillins Allergy (Verified 08/26/17 16:00) Sulfa (Sulfonamide Antibiotics) Allergy (Verified 08/26/17 16:00) Past Medical History - General Information source: Patient - Social History Smoking Status: Never Smoker Frequency of alcohol use: None Drug Abuse: Marijuana Lives with: Spouse/Significant other Family History: Reviewed & Not Pertinent, DM - Past Medical History Cardiac Medical History: Reports: Hx Hypertension Pulmonary Medical History: Reports: Hx Asthma Denies: Hx Tuberculosis Endocrine Medical History: Reports: Hx Diabetes Mellitus Type 1, Hx Diabetes Mellitus Type 2 Renal/ Medical History: Denies: Hx Peritoneal Dialysis GI Medical History: Reports: Hx Pancreatitis Musculoskeltal Medical History: Reports Hx Arthritis, Reports Hx Musculoskeletal Deformity, Reports Hx Musculoskeletal Trauma Traumatic Medical History: Reports: Hx Fractures Past Surgical History: Reports: Hx Abdominal Surgery - For pancreatic cyst in 2004, Hx Section, Hx Orthopedic Surgery - left leg surgery. Denies: Hx Appendectomy, Hx Bowel Surgery, Hx Cholecystectomy, Hx Coronary Artery Bypass Graft, Hx Gastric Bypass Surgery, Hx Herniorrhaphy, Hx Hysterectomy, Hx Mastectomy, Hx Pacemaker, Hx Tonsillectomy, Hx Tubal Ligation - Immunizations Immunizations up to date: Yes Hx Diphtheria, Pertussis, Tetanus Vaccination: Yes Hx Pneumococcal Vaccination: 07/20/10 Review of Systems - Review of Systems Notes: Constitutional: Negative for fever. HENT: Negative for sore throat. Eyes: Negative for visual changes. Cardiovascular: Negative for chest pain. Respiratory: Negative for shortness of breath. Gastrointestinal: Positive for abdominal pain and vomiting Genitourinary: Negative for dysuria. Musculoskeletal: Negative for back pain. Skin: Negative for rash. Neurological: Negative for headaches, weakness or numbness. 10 point ROS negative except as marked above and in HPI. Physical Exam - Vital signs Vitals: Temp Pulse Resp BP Pulse Ox 98.1 F 85 20 151/93 H 100 10/03/17 21:38 10/03/17 21:38 10/03/17 21:38 10/03/17 21:38 10/03/17 21:38 Interpretation: Hypertensive Notes: PHYSICAL EXAMINATION: GENERAL: Appears moderately uncomfortable but in no acute distress HEAD: Atraumatic, normocephalic. EYES: Pupils equal round and reactive to light, extraocular movements intact, sclera anicteric, conjunctiva are normal. ENT: nares patent, oropharynx clear without exudates. Moderately dry mucous membranes. NECK: Normal range of motion, supple without lymphadenopathy LUNGS: Breath sounds clear to auscultation bilaterally and equal. No wheezes rales or rhonchi. HEART: Regular rate and rhythm without murmurs ABDOMEN: Soft, mild tenderness to the epigastrium but no other localized areas of tenderness, normoactive bowel sounds. No guarding, no rebound. No masses appreciated. EXTREMITIES: Normal range of motion, no pitting or edema. No cyanosis. NEUROLOGICAL: No focal neurological deficits. Moves all extremities spontaneously and on command. PSYCH: Alert, oriented, moderately anxious SKIN: Warm, Dry, normal turgor, no rashes or lesions noted. Course - Re-evaluation Re-evalutation: 10/04/17 00:11 Patient presents with complaints of nausea, vomiting, upper abdominal pain and fatigue. Patient has had multiple presentations for the same over the last 2 months and is in his area of chronic pancreatitis. On examination she appears moderately dehydrated, some focal epigastric abdominal tenderness with examination is otherwise unremarkable. She has had a CT scan of her abdomen pelvis and the last 2 months which is noted to be unremarkable. I do not clinically suspect an acute appendicitis, acute biliary pathology, mesenteric ischemia or bowel obstruction based on exam and history. Obtain labs, provide IV fluids, antiemetics and reassess 10/04/17 02:46 Labs demonstrate findings consistent with acute pyelonephritis. Patient has tolerated oral intake without difficulty. Clinically much improved. Vitals within normal limits. At this time will discharge with return precautions and follow-up recommendations. Verbal discharge instructions given a the bedside and opportunity for questions given. Medication warnings reviewed. Patient is in agreement with this plan and has verbalized understanding of return precautions and the need for primary care follow-up in the next 24-72 hours. - Vital Signs Vital signs: Temp Pulse Resp BP Pulse Ox 97.9 F 82 20 131/80 H 100 10/04/17 02:56 10/04/17 02:56 10/04/17 02:56 10/04/17 02:56 10/04/17 02:56 - Laboratory Result Diagrams: 10/03/17 23:25 10/04/17 01:39 Laboratory results interpreted by me: 10/03/17 10/03/17 10/04/17 21:43 23:25 00:28 RDW 15.1 H BUN Est GFR (Non-Af Amer) Glucose POC Glucose 116 H Alkaline Phosphatase Total Protein Lipase Urine Glucose (UA) >=500 H Urine Blood SMALL H Ur Leukocyte Esterase MODERATE H 10/04/17 01:39 RDW BUN 25 H Est GFR (Non-Af Amer) 50 L Glucose 262 H POC Glucose Alkaline Phosphatase 164 H Total Protein 6.2 L Lipase 318.8 H Urine Glucose (UA) Urine Blood Ur Leukocyte Esterase Discharge - Discharge Clinical Impression: Hyperglycemia, Pyelonephritis, Marijuana abuse Nausea and vomiting Qualifiers: Vomiting type: unspecified Vomiting Intractability: non-intractable Qualified Code(s): R11.2 - Nausea with vomiting, unspecified Condition: Good Disposition: HOME, SELF-CARE Additional Instructions: You have been diagnosed with a condition called pyelonephritis which is an infection involving your kidneys and bladder. You have been given a dose of antibiotics here in the emergency department to help begin to treat this infection. Your also being sent home on antibiotics. Please start taking these later on today when you fill the prescription. Complete the course even if you feel better. Please return if you have persistent vomiting, pass out, have worsening pain, become unable to tolerate fluids, or have any other symptoms that are concerning to you. Please follow-up with your primary care physician in the next 24-48 hours. Prescriptions: Cephalexin Monohydrate [Keflex 500 mg Capsule] 500 mg PO Q6H 5 Days capsule Referrals: LYLE ROBERSON DO [Primary Care Provider] - Follow up as needed
[2017-10-04 00:49] LABS: APPEARANCE,URINE CLOUDY; BILIRUBIN,URINE NEGATIVE (NEGATIVE); COLOR,URINE YELLOW; GLUCOSE, URINE >=500 mg/dL (NEGATIVE); KETONES,URINE NEGATIVE (NEGATIVE); LEUKOCYTE ESTERASE,URINE MODERATE (NEGATIVE); NITRITE,URINE NEGATIVE (NEGATIVE); PROTEIN,URINE NEGATIVE (NEGATIVE); URINE SPECIFIC GRAVITY 1.016; UROBILINOGEN,URINE NEGATIVE mg/dL (<2.0)
--- NOTE | 2017-10-04 00:56 | RADIOLOGY REPORT (SQ) ---
EXAM DESCRIPTION: ACUTE ABDOMEN SERIES CLINICAL HISTORY: 47 years Female, vomiting, abdominal pain COMPARISON: None. NUMBER OF VIEWS/TECHNIQUE: 3 LIMITATIONS: None. FINDINGS: Intestinal gas pattern is within normal limits. No suspicious calcification. Grossly intact skeletal structures. No acute cardiopulmonary findings. IMPRESSION: No acute findings.
[2017-10-04] MEDS ORDERED: CEFTRIAXONE 1 GM/D5W RTU 1 GM/50 ML RTUPB IV ONE (01:09)
[2017-10-04] MEDS ORDERED: CEFTRIAXONE INJ 1000 MG VIAL ONE (01:23)
[2017-10-04 02:22] LABS: ALANINE AMINOTRANSFERASE 21 U/L (9-52); ALBUMIN 3.5 g/dL (3.5-5.0); ALKALINE PHOSPHATASE 164 U/L (38-126); ANION GAP 9 (5-19); ASPARTATE AMINO TRANSFERASE 17 U/L (14-36); BILIRUBIN,DIRECT 0.2 mg/dL (0.0-0.4); BILIRUBIN,TOTAL 0.3 mg/dL (0.2-1.3); BLOOD UREA NITROGEN 25 mg/dL (7-20); CALCIUM 9.2 mg/dL (8.4-10.2); CARBON DIOXIDE 28 mmol/L (22-30); CHLORIDE 102 mmol/L (98-107); GLUCOSE 262 mg/dL (75-110); LIPASE 318.8 U/L (23-300); POTASSIUM 4.9 mmol/L (3.6-5.0); SODIUM 138.6 mmol/L (137-145); TOTAL PROTEIN 6.2 g/dL (6.3-8.2)
[2017-10-04 03:00] VITALS: BP 131/80
--- NOTE | 2017-10-04 08:54 | EKG REPORT ---
SEVERITY:- ABNORMAL ECG - SINUS RHYTHM REPOL ABNRM SUGGESTS ISCHEMIA, INFERIOR LEADS BORDERLINE PROLONGED QT INTERVAL : Confirmed by: Natalio Amaya MD 04-Oct-2017 08:54:36
== END 2017-10-04 02:56 | disposition home or self-care (01) ==
LOC: ER 21:27
DX: R42 Dizziness and giddiness (principal); N12 Tubulo-interstitial nephritis, not specified as acute or chronic; F12.10 Cannabis abuse, uncomplicated; E11.65 Type 2 diabetes mellitus with hyperglycemia; R11.2 Nausea with vomiting, unspecified; R10.84 Generalized abdominal pain; R68.83 Chills (without fever); I10 Essential (primary) hypertension; Z88.0 Allergy status to penicillin; Z88.2 Allergy status to sulfonamides; Z79.4 Long term (current) use of insulin
CPT/HCPCS: 93005; 99284; 96361; 96375; 96365; 36415; 87086; 82962; 83690; 84703; 85025; 80053; 81001; 74022; 93010; J0696; J2405; J7030

== ENCOUNTER 2018-02-17 07:25 | Day surgery (SDC) | payer MEDICARE, MEDICAID ==
[~2018-02-17 07:25] MED LIST: CHONDR SU A NA/HYALUR INTRAOC KIT (SURGICARE) ONE; EPINEPHRINE INJ/PF 1 MG/1 ML AMPULE ONE; KETOROLAC TROMETHAMINE 0.45% 4 DROP/0.4 ML DROPERETTE OD PRN; LIDOCAINE 1% INJ-PF (10 MG/ML) 30 ML SDV ONE; MIDAZOLAM 2 MG/2 ML INJ ONE; TOBRAMYCIN SULFATE/DEXAMETH OPH OINTMENT 3.5 GM ONE
[2018-02-17] MEDS: CYCLOPENTOLATE 0.2%/PHENYLEPHRINE 1% OPH SOLN 2 ML OD PRN ×3 (07:38→08:07)
[2018-02-17] MEDS: TROPICAMIDE 1% OPH SOLN 3 ML OD PRN ×3 (07:38→08:07)
[2018-02-17] MEDS: BESIFLOXACIN HCL 0.6% OPH SUSP 5 ML BOTTLE OD PRN ×3 (07:39→08:40)
[2018-02-17] MEDS: TETRACAINE HCL 0.5% OPH SOLN 0.6 ML DROPERETTE OD PRN ×3 (07:40→08:16)
[2018-02-17] MEDS ORDERED: TRYPAN BLUE 0.06 % OPH SOLN 0.5 ML DISP.SYRIN ONE (08:18)
[2018-02-17] MEDS ORDERED: ACETAMINOPHEN 325 MG TABLET ONE (08:57)
[2018-02-17] MEDS ORDERED: HYDRALAZINE HCL INJ/PF 20 MG/1 ML SDV ONE (09:10)
== END 2018-02-17 10:10 | disposition home or self-care (01) ==
LOC: SC 07:25
PROVIDERS: ATTEND Ophthalmology
DX: H25.11 Age-related nuclear cataract, right eye (principal); F17.210 Nicotine dependence, cigarettes, uncomplicated; E11.9 Type 2 diabetes mellitus without complications; I10 Essential (primary) hypertension; E78.00 Pure hypercholesterolemia, unspecified; K21.9 Gastro-esophageal reflux disease without esophagitis; Z88.0 Allergy status to penicillin; Z88.2 Allergy status to sulfonamides; Z79.899 Other long term (current) drug therapy; Z79.4 Long term (current) use of insulin
CPT/HCPCS: 82962; 66984; V2632; A9270 ×2; J2250; J3490 ×4; J0171; J0360; 142

== ENCOUNTER 2018-03-03 11:56 | Day surgery (SDC) | payer MEDICARE, MEDICAID ==
[~2018-03-03 11:56] MED LIST changes: -KETOROLAC TROMETHAMINE 0.45% 4 DROP/0.4 ML DROPERETTE OD PRN; +KETOROLAC TROMETHAMINE 0.45% 4 DROP/0.4 ML DROPERETTE OS PRN; -MIDAZOLAM 2 MG/2 ML INJ ONE
[2018-03-03] MEDS: TROPICAMIDE 1% OPH SOLN 3 ML OS PRN ×3 (12:13→12:47)
[2018-03-03] MEDS: CYCLOPENTOLATE 0.2%/PHENYLEPHRINE 1% OPH SOLN 2 ML OS PRN ×3 (12:13→12:47)
[2018-03-03] MEDS: BESIFLOXACIN HCL 0.6% OPH SUSP 5 ML BOTTLE OS PRN ×3 (12:14→13:16)
[2018-03-03] MEDS: TETRACAINE HCL 0.5% OPH SOLN 0.6 ML DROPERETTE OS PRN ×3 (12:15→12:53)
[2018-03-03] MEDS ORDERED: MIDAZOLAM 2 MG/2 ML INJ ONE (12:38)
[2018-03-03] MEDS ORDERED: FENTANYL CITRATE INJ/PF 100 MCG/2 ML AMPUL ONE (12:38)
[2018-03-03] MEDS ORDERED: TRYPAN BLUE 0.06 % OPH SOLN 0.5 ML DISP.SYRIN ONE (13:01)
== END 2018-03-03 14:05 | disposition home or self-care (01) ==
LOC: SC 11:56
PROVIDERS: ATTEND Ophthalmology
DX: H25.12 Age-related nuclear cataract, left eye (principal); E11.9 Type 2 diabetes mellitus without complications; I10 Essential (primary) hypertension; E78.00 Pure hypercholesterolemia, unspecified; J45.909 Unspecified asthma, uncomplicated; K21.9 Gastro-esophageal reflux disease without esophagitis; F17.210 Nicotine dependence, cigarettes, uncomplicated; Z79.899 Other long term (current) drug therapy; Z79.4 Long term (current) use of insulin; Z88.0 Allergy status to penicillin; Z88.2 Allergy status to sulfonamides; Z98.41 Cataract extraction status, right eye
CPT/HCPCS: 66984; 82962; V2632; J2250; J3490 ×4; A9270; J0171; J3010; 142

== ENCOUNTER 2019-11-20 12:36 | Inpatient (IN) | payer MEDICARE, MEDICAID ==
[2019-11-20] MEDS ORDERED: RINGERS SOLUTION,LACTATED 1,000 ML IV ONE (12:44)
--- NOTE | 2019-11-20 12:51 | ER Document Report ---
ED General - General Stated Complaint: HIGH BLOOD SUGAR Time Seen by Provider: 11/20/19 12:40 Primary Care Provider: LYLE ROBERSON DO [Primary Care Provider] - Follow up as needed Notes: 49-year-old female brought in by EMS. Patient was found by her son this morning confused, having vomiting and diarrhea Michelle and having a blood sugar monitor that read "high." Patient is a known diabetic with a history of pancreatitis and bowel necrosis, was reportedly asymptomatic yesterday. Currently complaining of pain in her lower abdomen. States she has not had alcohol in several months. Patient was incontinent of stool for EMS, blood pressure was 235/135, blood sugar was also high on EMS's glucometer. They did treat her with 8 of Zofran IV and 50 Benadryl IV as well as 12.5 of Phenergan IM for her nausea. Her nausea has improved. Patient was somewhat somnolent for EMS prior to receiving the sedating medications. Patient is reportedly normally compliant with her medications, patient cannot tell me when her last dose of insulin was. TRAVEL OUTSIDE OF THE [place] IN LAST 30 DAYS: No - Related Data Allergies/Adverse Reactions: Penicillins Allergy (Severe, Verified 02/11/18 14:08) SOB, ITCHING Sulfa (Sulfonamide Antibiotics) Allergy (Severe, Verified 02/11/18 14:08) SOB, ITCHING hydromorphone HCl [From Dilaudid] Allergy (Intermediate, Verified 02/11/18 14:08) ITCHING Past Medical History - General Information source: Patient, Emergency Med Personnel - Social History Smoking Status: Current Every Day Smoker Frequency of alcohol use: None Drug Abuse: Marijuana Family History: DM - Past Medical History Cardiac Medical History: Reports: Hx Hypertension - MEDICATED Denies: Hx Heart Attack Pulmonary Medical History: Reports: Hx Asthma - DOES NOT USE INHALERS Denies: Hx Tuberculosis Neurological Medical History: Denies: Hx Cerebrovascular Accident, Hx Seizures Endocrine Medical History: Reports: Hx Diabetes Mellitus Type 1, Hx Diabetes Mellitus Type 2 Renal/ Medical History: Denies: Hx Peritoneal Dialysis GI Medical History: Reports: Hx Pancreatitis. Denies: Hx Hepatitis, Hx Hiatal Hernia, Hx Ulcer Musculoskeletal Medical History: Reports Hx Arthritis, Reports Hx Musculoskele miguel angel Deformity, Reports Hx Musculoskeletal Trauma Traumatic Medical History: Reports: Hx Fractures Infectious Medical History: Denies: Hx Hepatitis Past Surgical History: Reports: Hx Abdominal Surgery - For pancreatic cyst in 2004, Hx Section, Hx Orthopedic Surgery - left leg surgery. Denies: Hx Appendectomy, Hx Bowel Surgery, Hx Cholecystectomy, Hx Coronary Artery Bypass Graft, Hx Gastric Bypass Surgery, Hx Herniorrhaphy, Hx Hysterectomy, Hx Mastectomy, Hx Open Heart Surgery, Hx Pacemaker, Hx Tonsillectomy, Hx Tubal Ligation - Immunizations Immunizations up to date: Yes Hx Diphtheria, Pertussis, Tetanus Vaccination: Yes Hx Pneumococcal Vaccination: 07/20/10 Review of Systems - Review of Systems Constitutional: See HPI, Weakness EENT: No symptoms reported Gastrointestinal: See HPI, Abdominal pain, Diarrhea, Nausea, Vomiting -: Yes All other systems reviewed and negative Physical Exam - Vital signs Vitals: Temp Pulse Ox 97.4 F 100 11/20/19 12:36 11/20/19 12:36 - Notes Notes: GENERAL: Somnolent but will respond to verbal stimuli, answers all questions, no acute distress. HEAD: Normocephalic, atraumatic EYES: Pupils equal, round and reactive to light, extraocular movements intact. ENT: Oral mucosa moist, tongue midline. NECK: Full range of motion, supple, trachea midline. LUNGS: Clear to auscultation bilaterally, no wheezes, rales or rhonchi, no respiratory distress. HEART: Regular rate and rhythm, no murmurs, gallops, rubs. ABDOMEN: Soft, left lower quadrant and right lower quadrant tenderness to palpation, nondistended, bowel sounds present in all 4 quadrants. Incontinent of stool. EXTREMITIES: Moves all 4 extremities spontaneously, no edema, radial and dorsalis pedis pulses 2/4 bilaterally. No cyanosis. NEUROLOGICAL: Somnolent, oriented to person, place and time, mumbles but is able to be understood. Course - Re-evaluation Re-evalutation: 11/20/19 18:03 CBC shows slight low platelets at 141, coags normal, CMP shows slightly elevated PCO2 at 65.6 but not high enough to explain her fatigue, CMP shows some acute renal failure with a BUN of 40 and a creatinine of 1.56, glucose elevated at 597, after several liters of fluid and 10 units of insulin IV it is 455, initial lactic acid is elevated at 2.2, it increased to 2.9, lipase is normal, troponin is negative, urinalysis which was a cath specimen shows moderate leukocyte esterase, this was sent for culture, patient started on Rocephin. Gastroccult is positive, Hemoccult is negative. This is possibly from a Kathleen-Nuñez tear, it is not massive hematemesis. Chest x-ray does not show any acute process. CT of the abdomen pelvis shows chronic changes to the kidney which could also represent pyelonephritis in the right setting. No other acute process. Patient is continuing to vomit despite several doses of antinausea medication here and for EMS. I did discuss the patient with Dr. prosper walter who agrees to admit the patient to his service on the IMCU for hyperglycemia, hematemesis and persistent vomiting. - Vital Signs Vital signs: Temp Pulse Resp BP Pulse Ox 97.5 F 19 191/115 H 100 11/20/19 17:01 11/20/19 17:01 11/20/19 17:01 11/20/19 17:01 - Laboratory Result Diagrams: 11/20/19 14:09 11/20/19 14:09 Laboratory results interpreted by me: 11/20/19 11/20/19 11/20/19 13:51 14:09 14:09 RDW 15.8 H Plt Count 141 L Lymph % (Auto) 11.6 L Seg Neutrophils % 81.8 H VBG pCO2 VBG HCO3 Chloride 96 L BUN 40 H Creatinine 1.56 H Est GFR ( Amer) 43 L Est GFR (MDRD) Non-Af 35 L Glucose 597 H* POC Glucose Lactic Acid AST 41 H Alkaline Phosphatase 316 H Urine Protein 100 H Urine Glucose (UA) >=500 H Urine Blood SMALL H Leukocyte Esterase Rfl MODERATE H 11/20/19 11/20/19 11/20/19 14:09 14:09 16:30 RDW Plt Count Lymph % (Auto) Seg Neutrophils % VBG pCO2 65.6 H* VBG HCO3 33.2 H Chloride BUN Creatinine Est GFR ( Amer) Est GFR (MDRD) Non-Af Glucose POC Glucose Lactic Acid 2.2 H 2.9 H AST Alkaline Phosphatase Urine Protein Urine Glucose (UA) Urine Blood Leukocyte Esterase Rfl 11/20/19 16:57 RDW Plt Count Lymph % (Auto) Seg Neutrophils % VBG pCO2 VBG HCO3 Chloride BUN Creatinine Est GFR ( Amer) Est GFR (MDRD) Non-Af Glucose POC Glucose 455 H* Lactic Acid AST Alkaline Phosphatase Urine Protein Urine Glucose (UA) Urine Blood Leukocyte Esterase Rfl - EKG Interpretation by Me Additional EKG results interpreted by me: 11/20/19 13:33 EKG shows sinus rhythm at a rate of 97, normal axis, borderline prolonged QT interval, slightly slow R wave progression, no ST segment elevations, minimal ST segment depression in lead I, T wave inversions noted in 2 and 3, some T wave flattening in aVF, T wave inversions noted in V6, per my interpretation. Discharge - Discharge Clinical Impression: Intractable vomiting with nausea Hyperglycemia due to type 2 diabetes mellitus Qualifiers: Diabetes mellitus long term care administrator insulin use: with long term care administrator use Qualified Code(s): E11.65 - Type 2 diabetes mellitus with hyperglycemia; Z79.4 - terminal manager (current) use of insulin Diarrhea Qualifiers: Diarrhea type: unspecified type Qualified Code(s): R19.7 - Diarrhea, unspecified Hematemesis Qualifiers: Nausea presence: with nausea Qualified Code(s): K92.0 - Hematemesis Urinary tract infection Qualifiers: Urinary tract infection type: acute cystitis Hematuria presence: with hematuria Qualified Code(s): N30.01 - Acute cystitis with hematuria Condition: Fair Disposition: ADMITTED INPATIENT Referrals: LYLE ROBERSON DO [Primary Care Provider] - Follow up as needed
--- NOTE | 2019-11-20 13:27 | RADIOLOGY REPORT (SQ) ---
EXAM DESCRIPTION: CHEST SINGLE VIEW IMAGES COMPLETED DATE/TIME: 11/20/2019 1:16 pm REASON FOR STUDY: vomiting, diarrhea, LLQ pain COMPARISON: 07/21/2017. NUMBER OF VIEWS: One view. TECHNIQUE: Single frontal radiographic view of the chest acquired. LIMITATIONS: None. FINDINGS: LUNGS AND PLEURA: No opacities, masses or pneumothorax. No pleural effusion. MEDIASTINUM AND HILAR STRUCTURES: No masses. Contour normal. HEART AND VASCULAR STRUCTURES: Heart normal in size. Normal vasculature. BONES: No acute findings. HARDWARE: None in the chest. OTHER: No other significant finding. IMPRESSION: NO SIGNIFICANT RADIOGRAPHIC FINDING IN THE CHEST. TECHNICAL DOCUMENTATION: JOB ID: [id number] 2010 [employer]- All Rights Reserved Reading location - IP/workstation name: [email or web address]
[2019-11-20] MEDS ORDERED: DIPHENHYDRAMINE HCL 50 MG/ML VIAL IV ONE (13:34)
[2019-11-20] MEDS ORDERED: METOCLOPRAMIDE HCL INJ/PF 10 MG/2 ML SDV IV ONE (13:34)
[2019-11-20 14:37] LABS: VENOUS BLOOD HCO3 33.2 mmol/L (20-32); VENOUS BLOOD PH 7.32 (7.30-7.42)
[2019-11-20 14:39] LABS: ABSOLUTE EOSINOPHILS # (AUTO) 0.1 10^3/uL (0.0-0.6); ABSOLUTE MONOCYTES (AUTO) 0.4 10^3/uL (0.1-1.4); ABSOLUTE NEUT (AUTO) 6.8 10^3/uL (1.7-8.2); BASOPHILS % (AUTO) 0.4 % (0-2); EOSINOPHILS % (AUTO) 1.1 % (0-6); HEMATOCRIT 38.7 % (36.0-47.0); HEMOGLOBIN 13.2 g/dL (12.0-15.5); LYMPHOCYTES % (AUTO) 11.6 % (13-45); MEAN CORPUSCULAR HEMOGLOBIN 30.3 pg (27.0-33.4); MEAN CORPUSCULAR HGB CONC 34.2 g/dL (32.0-36.0); MEAN CORPUSCULAR VOLUME 89 fl (80-97); MONOCYTES % (AUTO) 5.1 % (3-13); PLATELET COUNT 141 10^3/uL (150-450); RED BLOOD COUNT 4.36 10^6/uL (3.72-5.28); RED CELL DISTRIBUTION WIDTH 15.8 % (11.5-14.0); SEGMENTED NEUTROPHILS % (AUTO) 81.8 % (42-78); TOTAL CELLS COUNTED % (AUTO) 100 %; WHITE BLOOD COUNT 8.3 10^3/uL (4.0-10.5)
[2019-11-20 14:40] LABS: VENOUS BLOOD PCO2 65.6 mmHg (35-63)
[2019-11-20 14:46] LABS: INTERNATIONAL RATION (INR) 0.89
[2019-11-20 14:50] LABS: APPEARANCE,URINE CLEAR; BILIRUBIN,URINE NEGATIVE (NEGATIVE); COLOR,URINE COLORLESS; GLUCOSE, URINE >=500 mg/dL (NEGATIVE); KETONES,URINE NEGATIVE (NEGATIVE); PROTEIN,URINE 100 mg/dL (NEGATIVE); URINE SPECIFIC GRAVITY 1.012; UROBILINOGEN,URINE NEGATIVE mg/dL (<2.0)
[2019-11-20 14:56] LABS: ALBUMIN 4.5 g/dL (3.5-5.0); ALKALINE PHOSPHATASE 316 U/L (38-126); ANION GAP 12 (5-19); ASPARTATE AMINO TRANSFERASE 41 U/L (14-36); BILIRUBIN,DIRECT 0.1 mg/dL (0.0-0.4); BILIRUBIN,TOTAL 0.7 mg/dL (0.2-1.3); BLOOD UREA NITROGEN 40 mg/dL (7-20); CALCIUM 10.2 mg/dL (8.4-10.2); CARBON DIOXIDE 30 mmol/L (22-30); CHLORIDE 96 mmol/L (98-107); POTASSIUM 4.6 mmol/L (3.6-5.0); TOTAL PROTEIN 7.9 g/dL (6.3-8.2)
[2019-11-20 15:07] LABS: GLUCOSE 597 mg/dL (75-110)
[2019-11-20] MEDS ORDERED: INSULIN REG, HUMAN 100 UNIT/ML 3 ML VIAL (PYX) IV ONE (15:28)
[2019-11-20] MEDS ORDERED: ONDANSETRON HCL INJ/PF 4 MG/2 ML SDV ONE (15:51)
[2019-11-20] MEDS ORDERED: ONDANSETRON HCL INJ/PF 4 MG/2 ML SDV IV ONE (15:54)
--- NOTE | 2019-11-20 16:30 | RADIOLOGY REPORT (SQ) ---
EXAM DESCRIPTION: CT ABD/PELVIS WITH IV ONLY IMAGES COMPLETED DATE/TIME: 11/20/2019 3:02 pm REASON FOR STUDY: vomiting, diarrhea, LLQ pain COMPARISON: None. TECHNIQUE: CT scan of the abdomen and pelvis performed using helical scanning technique with dynamic intravenous contrast injection. No oral contrast. Images reviewed with lung, soft tissue, and bone windows. Reconstructed coronal and sagittal MPR images reviewed. Delayed images for evaluation of the urinary system also acquired. All images stored on PACS. All CT scanners at this facility use dose modulation, iterative reconstruction, and/or weight based d osing when appropriate to reduce radiation dose to as low as reasonably achievable (ALARA). [facility]: Dose Right [facility]: CareDose [facility]: Dose Right [facility]: Teradose 4D [facility]: Bolt CONTRAST TYPE AND DOSE: contrast/concentration: Isovue 350.00 mg/ml; Total Contrast Delivered: 73.0 ml; Total Saline Delivered: 56.0 ml RENAL FUNCTION: Creatinine 1.56 today RADIATION DOSE: CT Rad equipment meets quality standard of care and radiation dose reduction techniq ues were employed. CTDIvol: 4.9 mGy. DLP: 258 mGy-cm.. LIMITATIONS: None. FINDINGS: LOWER CHEST: No significant findings. No nodules or infiltrates. LIVER: The liver has normal size and contour. There is moderate diffuse hepatic steatosis. No focal hepatic mass. Hepatic and portal veins are patent. No biliary ductal dilation. SPLEEN: Normal size. No focal lesions. PANCREAS: No masses. No significant calcifications. No adjacent inflammation or peripancreatic fluid collections. Pancreatic duct not dilated. GALLBLADDER: No identified stones by CT criteria. No inflammatory changes to suggest cholecystitis. ADRENAL GLANDS: No significant masses or asymmetry. RIGHT KIDNEY AND URETER: No solid masses. No significant calcifications. No hydronephrosis or hyd roureter. LEFT KIDNEY AND URETER: Chronic atrophy of the left kidney stable from previous. There are wedge sha ped areas of hypodense attenuation with normal appearance of enhancing cortex intervening, similar in appearance to previous examination. No perinephric fluid or inflammatory change. No significant c alcifications. Left ureter has normal caliber and appearance. AORTA AND VESSELS: No aneurysm. No dissection. Renal arteries, SMA, celiac without stenosis. RETROPERITONEUM: No retroperitoneal adenopathy, hemorrhage or masses. BOWEL AND PERITONEAL CAVITY: No masses or inflammatory changes. Calcifications in the left peritonea l I am inferior to the left kidney, stable in appearance from previous examination. No free fluid or peritoneal masses. APPENDIX: Normal. PELVIS: The urinary bladder is moderately distended. No bladder wall thickening, intraluminal bladde r mass or debris. Uterus and ovaries have normal size. No adnexal mass. ABDOMINAL WALL: No masses. No hernias. BONES: No significant or acute findings. OTHER: No other significant finding. IMPRESSION: 1. Atrophic left kidney unchanged from prior. There is a striated appearance of the nephrogram, whic h may be secondary to chronic atrophy, however pyelonephritis is not excluded. There is no surroundi ng perinephric inflammatory change or fluid. No hydronephrosis. Clinical correlation and correlatio n with urinalysis recommended. 2. Moderate hepatic steatosis. TECHNICAL DOCUMENTATION: JOB ID: [id number] Quality ID # [id number]: Final reports with documentation of one or more dose reduction techniques (e.g., Au tomated exposure control, adjustment of the mA and/or kV according to patient size, use of iterative reconstruction technique) 2010 [employer]- All Rights Reserved Reading location - IP/workstation name: [id number]
[2019-11-20] MEDS ORDERED: CEFTRIAXONE 1 GM/D5W RTU 1 GM/50 ML RTUPB IV ONE (17:41)
[2019-11-20] MEDS ORDERED: ACETAMINOPHEN 325 MG TABLET PO PRN (18:21)
[2019-11-20] MEDS ORDERED: MAGNESIUM HYDROXIDE SUSP 30 ML UDCUP PO PRN (18:21)
[2019-11-20] MEDS ORDERED: ACETAMINOPHEN 650 MG SUPP.RECT PR PRN (18:21)
[2019-11-20] MEDS ORDERED: MAG HYDROX/AL HYDROX/SIMETH SUSP 30 ML UDCUP PO PRN (18:21)
[2019-11-20] MEDS ORDERED: GLUCAGON,HUMAN RECOMB 1 MG INJ IM PRN (18:36)
[2019-11-20] MEDS ORDERED: DEXTROSE 40% GEL 15 GM TUBE PO PRN ×2 (18:36)
[2019-11-20] MEDS ORDERED: DEXTROSE 50%-WATER 25 GM/50 ML DISP.SYRIN IV PRN ×2 (18:36)
[2019-11-20] MEDS ORDERED: METOPROLOL TARTRATE PF/INJ 5 MG/5 ML SDV IV PRN (18:38)
--- NOTE | 2019-11-20 18:50 | PDOC H&P ---
History of Present Illness Admission Date/PCP: LYLE ROBERSON DO Patient complains of: Confusion and intractable nausea and vomiting History of Present Illness: DEEPTHI MARQUEZ is a 49 year old female who is a poor historian. The HPI according to the emergency department physician reports that she was brought in by EMS. Patient was found by her son this morning confused, having vomiting and diarrhea [place] and having a blood sugar monitor that read "high." Patient is a known diabetic with a history of pancreatitis and bowel necrosis, was reportedly asymptomatic yesterday. Currently complaining of pain in her lower abdomen. States she has not had alcohol in several months. Patient was incontinent of stool for EMS, blood pressure was 235/135, blood sugar was also high on EMS's glucometer. They did treat her with 8 of Zofran IV and 50 Benadryl IV as well as 12.5 of Phenergan IM for her nausea. Her nausea has improved. Patient was somewhat somnolent for EMS prior to receiving the sedating medications. Patient is reportedly normally compliant with her medications, patient cannot tell me when her last dose of insulin was. Past Medical History Cardiac Medical History: Reports: Hypertension - MEDICATED Denies: Myocardial Infarction Pulmonary Medical History: Reports: Asthma - DOES NOT USE INHALERS Denies: Tuberculosis Neurological Medical History: Denies: Seizures Endocrine Medical History: Reports: Diabetes Mellitus Type 1, Diabetes Mellitus Type 2 GI Medical History: Reports: Gastroesophageal Reflux Disease Denies: Hepatitis, Hiatal Hernia Musculoskeltal Medical History: Reports: Arthritis Hematology: Denies: Anemia, Sickle Cell Disease Past Surgical History Past Surgical History: Reports: Section, Orthopedic Surgery - left leg surgery Denies: Amputation, Appendectomy, Cholecystectomy, Coronary Artery Bypass Graft, Gastric Bypass Surgery, Herniorrhaphy, Hysterectomy, Mastectomy, Pacemaker, Tonsillectomy, Tubal Ligation Social History Information Source: [facility] Records Lives with: Family Smoking Status: Current Every Day Smoker Electronic Cigarette use?: No Amount of Alcoholic Beverages Per Day: Unknown Hx Recreational Drug Use: Yes Drugs: Marijuana Hx Prescription Drug Abuse: No - Advance Directive Resuscitation Status: Full Code Surrogate healthcare decision maker:: The patient's son Family History Family History: DM Family History: Unable to obtain from the patient due to the patient's mental status Parental Family History Reviewed: Yes - From patient's chart Children Family History Reviewed: Unknown Sibling(s) Family History Reviewed.: Unknown Medication/Allergy Home Medications: Lisinopril/Hydrochlorothiazide [Lisinopril-Hctz 20-12.5 mg Tab] 1 each PO DAILY #15 tablet 08/16/17 Amlodipine Besylate 5 mg PO DAILY 02/11/18 Baclofen [Baclofen 10 mg Tablet] 10 mg PO TID 02/11/18 Empagliflozin [Jardiance] 25 mg PO DAILY 02/11/18 Gabapentin [Gralise] 600 mg PO BID 02/11/18 Insulin Detemir [Levemir] 30 unit SQ QHS 02/11/18 Insulin Lispro [Humalog Kwikpen] 10 unit SQ AC 02/11/18 Metoprolol Succinate 50 mg PO BID 02/11/18 Omeprazole/Sodium Bicarbonate [Omeppi 40 mg-1,100 mg Capsule] 1 each PO AC 02/11/18 Oxycodone HCl/Acetaminophen [Endocet 10-325 mg Tablet] 1 each PO Q6HP PRN 02/11/18 Allergies/Adverse Reactions: Penicillins Allergy (Severe, Verified 02/11/18 14:08) SOB, ITCHING Sulfa (Sulfonamide Antibiotics) Allergy (Severe, Verified 02/11/18 14:08) SOB, ITCHING hydromorphone HCl [From Dilaudid] Allergy (Intermediate, Verified 02/11/18 14:08) ITCHING Review of Systems ROS unobtainable: Due to mental status Physical Exam Vital Signs: Temp Pulse Resp BP Pulse Ox 97.5 F 19 191/115 H 100 11/20/19 17:01 11/20/19 17:01 11/20/19 17:01 11/20/19 17:01 Intake & Output 11/19/19 11/20/19 11/21/19 06:59 06:59 06:59 Intake Total 1000 Output Total 850 Balance 150 Weight 57.1 kg General appearance: PRESENT: severe distress, well-developed. ABSENT: cooperative - Unable to cooperate due to intractable vomiting Head exam: PRESENT: atraumatic, normocephalic Eye exam: PRESENT: other - Unable to assess Ear exam: PRESENT: normal external ear exam. ABSENT: bleeding, drainage Mouth exam: PRESENT: other - Continuous vomiting of foamy brown material Respiratory exam: PRESENT: tachypnea. ABSENT: accessory muscle use, prolonged expiratory phas, rales, rhonchi, wheezes Cardiovascular exam: PRESENT: +S1, +S2, tachycardia GI/Abdominal exam: PRESENT: hyperactive bowel sounds, soft, tenderness - Generalized Rectal exam: PRESENT: deferred Gentrourinary exam: ABSENT: indwelling catheter Extremities exam: ABSENT: joint swelling, pedal edema Musculoskeletal exam: PRESENT: normal inspection. ABSENT: deformity Neurological exam: PRESENT: alert, altered - The patient had difficulty providing exactly chills. In addition to the vomiting she was considered., awake, oriented to person Psychiatric exam: PRESENT: unusual affect. ABSENT: agitated, anxious Focused psych exam: PRESENT: other - Patient was somewhat confused. Difficulty maintaining her train of thought. Skin exam: PRESENT: dry, normal color, warm Results Laboratory Results: 11/20/19 14:09 11/20/19 14:09 11/20/19 11/20/19 11/20/19 13:51 14:09 14:09 WBC 8.3 RBC 4.36 Hgb 13.2 Hct 38.7 MCV 89 MCH 30.3 MCHC 34.2 RDW 15.8 H Plt Count 141 L Seg Neutrophils % 81.8 H VBG pH VBG pCO2 VBG HCO3 VBG Base Excess Sodium 138.1 Potassium 4.6 Chloride 96 L Carbon Dioxide 30 Anion Gap 12 BUN 40 H Creatinine 1.56 H Est GFR ( Amer) 43 L Glucose 597 H* Lactic Acid Calcium 10.2 Total Bilirubin 0.7 AST 41 H Alkaline Phosphatase 316 H Total Protein 7.9 Albumin 4.5 Lipase 161.2 Serum HCG, Qual Urine Color COLORLESS Urine Appearance CLEAR Urine pH 8.0 Ur Specific [place] 1.012 Urine Protein 100 H Urine Glucose (UA) >=500 H Urine Ketones NEGATIVE Urine Blood SMALL H Urine RBC (Auto) 5 11/20/19 11/20/19 11/20/19 14:09 14:09 14:09 WBC RBC Hgb Hct MCV MCH MCHC RDW Plt Count Seg Neutrophils % VBG pH 7.32 VBG pCO2 65.6 H* VBG HCO3 33.2 H VBG Base Excess 5.0 Sodium Potassium Chloride Carbon Dioxide Anion Gap BUN Creatinine Est GFR ( Amer) Glucose Lactic Acid 2.2 H Calcium Total Bilirubin AST Alkaline Phosphatase Total Protein Albumin Lipase Serum HCG, Qual NEGATIVE Urine Color Urine Appearance Urine pH Ur Specific [place] Urine Protein Urine Glucose (UA) Urine Ketones Urine Blood Urine RBC (Auto) 11/20/19 16:30 WBC RBC Hgb Hct MCV MCH MCHC RDW Plt Count Seg Neutrophils % VBG pH VBG pCO2 VBG HCO3 VBG Base Excess Sodium Potassium Chloride Carbon Dioxide Anion Gap BUN Creatinine Est GFR ( Amer) Glucose Lactic Acid 2.9 H Calcium Total Bilirubin AST Alkaline Phosphatase Total Protein Albumin Lipase Serum HCG, Qual Urine Color Urine Appearance Urine pH Ur Specific [place] Urine Protein Urine Glucose (UA) Urine Ketones Urine Blood Urine RBC (Auto) 11/20/19 14:09 Troponin I < 0.012 Impressions: Abdomen/Pelvis CT 11/20/19 00:00 IMPRESSION: 1. Atrophic left kidney unchanged from prior. There is a striated appearance of the nephrogram, which may be secondary to chronic atrophy, however pyelonephritis is not excluded. There is no surrounding perinephric inflammatory change or fluid. No hydronephrosis. Clinical correlation and correlation with urinalysis recommended. 2. Moderate hepatic steatosis. Chest X-Ray 11/20/19 12:44 IMPRESSION: NO SIGNIFICANT RADIOGRAPHIC FINDING IN THE CHEST. Assessment and Plan - Diagnosis (1) Diabetic hyperosmolar non-ketotic state Is this a current diagnosis for this admission?: Yes Plan: 11/20/2019 The patient's initial glucose was 500. She was given insulin in the emergency department. I will place her on a sliding scale. I will check a hemoglobin A1c. This is likely contributing to her altered mental status. (2) Intractable vomiting with nausea Is this a current diagnosis for this admission?: Yes Plan: 11/20/2019 Most likely due to the hyperosmolar nonketotic state. She does have a history of marijuana use and this could be contributing. Will escalate the antiemetic regimen for better control. Aggressive IV fluids and control of her glucose will help as well. (3) Hypertensive emergency Is this a current diagnosis for this admission?: Yes Plan: 11/20/2019 There is some issue about the patient's compliance with her antihypertensive medications. Her bag of medicines there were medicine bottles from several y ears ago. Some still had pills in them. I will start back on her medication regimen to slowly reduce her blood pressure over the next several days. Cardiac diet (4) Hyperglycemia due to diabetes mellitus Is this a current diagnosis for this admission?: Yes Plan: 11/20/2019 [place] regimen as outlined above. Controlled carbohydrate diet as well. (5) Urinary tract infection Qualifiers: Urinary tract infection type: acute cystitis Hematuria presence: with hematuria Qualified Code(s): N30.01 - Acute cystitis with hematuria Is this a current diagnosis for this admission?: Yes Plan: 11/20/2019 Urinalysis revealed white blood cells and moderate leukocyte esterase. Urine h as been collected for culture. The patient will be started on ceftriaxone initially. (6) Hematemesis Qualifiers: Nausea presence: with nausea Qualified Code(s): K92.0 - Hematemesis Is this a current diagnosis for this admission?: Yes Plan: 11/20/2019 There was no jeff blood in her emesis. Tested Gastroccult positive. Therefore through hematemesis and or guaiac positive/bright red blood per rectum as well as monitoring her hemoglobin. She was on several medications in the anti- inflammatory/aspirin class and she could also have a gastritis. We will place her on Protonix 40 mg twice daily. (7) Diarrhea Qualifiers: Diarrhea type: unspecified type Qualified Code(s): R19.7 - Diarrhea, unspecified Is this a current diagnosis for this admission?: Yes Plan: 11/20/2019 A stool culture has been sent. Antidiarrhea meds will be available. Specific etiology is not able to be determined at this time. (8) Metabolic encephalopathy Is this a current diagnosis for this admission?: Yes Plan: 11/20/2019 Most likely secondary to the hyperosmolar nonketotic state as well as the beer hypertension. Hopefully her mental status will improve. (9) Marijuana dependence Is this a current diagnosis for this admission?: Yes Plan: 11/20/2019 History of marijuana use. I have ordered a urine drug screen could be contri buting to her clinical picture. (10) Acute kidney injury Is this a current diagnosis for this admission?: Yes Plan: 11/20/2019 Acute kidney injury most likely due to volume loss with her nausea and vomiting. One also has to consider her diabetes and the severe hypertension exhibited. Does not correct with conventional treatments we may ask nephrology to see the patient. - Time Time Spent with patient: 35 or more minutes Medications reviewed and adjusted accordingly: Yes - Inpatient Certification Medical Necessity: Need For IV Fluids, Need For Continuous Telemetry Monitoring, Need for IV Antibiotics, Risk of Complication if Not Cared For in Hospital Post Hospital Care: D/C Bench Worker Apprentice Documentation
[2019-11-20] MEDS ORDERED: INSULIN LISPRO 100 UNIT/ML 3 ML VIAL SUBCUT ONE (19:00)
[2019-11-20] MEDS: PANTOPRAZOLE SODIUM 40 MG VIAL IV SCH ×2 (19:39→21:56)
[2019-11-20] MEDS: NORMAL SALINE 1000 ML 1,000 ML IV PRN (19:39)
[2019-11-20 19:40] LABS: C DIFFICILE GDH NEGATIVE (NEGATIVE)
[2019-11-20] MEDS: HYDRALAZINE HCL INJ/PF 20 MG/1 ML SDV IV PRN (19:43)
[2019-11-20] MEDS ORDERED: INSULIN REG, HUMAN 100 UNIT/ML 3 ML VIAL IV ONE (20:45)
[2019-11-20] MEDS ORDERED: INSULIN REG, HUMAN 100 UNIT/ML 3 ML VIAL (PYX) ONE (20:48)
[2019-11-20] MEDS: INSULIN LISPRO 100 UNIT/ML 3 ML VIAL SUBCUT SCH (21:49)
[2019-11-20] MEDS: PROMETHAZINE HCL INJ 25 MG/1 ML VIAL IV PRN (21:50)
[2019-11-20] MEDS: MORPHINE SULFATE 10 MG/ML INJ IV PRN (21:51)
[2019-11-20] MEDS ORDERED: PANTOPRAZOLE SODIUM 40 MG VIAL IV ONE (21:55)
[2019-11-20 23:38] LABS: ANION GAP 7 (5-19); BLOOD UREA NITROGEN 37 mg/dL (7-20); CALCIUM 9.5 mg/dL (8.4-10.2); CARBON DIOXIDE 32 mmol/L (22-30); CHLORIDE 103 mmol/L (98-107); GLUCOSE 226 mg/dL (75-110)
[2019-11-20 23:47] LABS: POTASSIUM 3.6 mmol/L (3.6-5.0)
[2019-11-21] MEDS: NORMAL SALINE 1000 ML 1,000 ML IV PRN ×3 (01:03→20:27)
[2019-11-21] MEDS: PROMETHAZINE HCL INJ 25 MG/1 ML VIAL IV PRN ×2 (04:47→08:21)
[2019-11-21] MEDS: MORPHINE SULFATE 10 MG/ML INJ IV PRN (04:47)
[2019-11-21 05:59] LABS: ABSOLUTE MONOCYTES (AUTO) 0.7 10^3/uL (0.1-1.4); ABSOLUTE NEUT (AUTO) 5.9 10^3/uL (1.7-8.2); BASOPHILS % (AUTO) 0.4 % (0-2); EOSINOPHILS % (AUTO) 0.1 % (0-6); HEMOGLOBIN 11.4 g/dL (12.0-15.5); LYMPHOCYTES % (AUTO) 13.2 % (13-45); MEAN CORPUSCULAR HGB CONC 34.6 g/dL (32.0-36.0); MEAN CORPUSCULAR VOLUME 87 fl (80-97); MONOCYTES % (AUTO) 8.8 % (3-13); PLATELET COUNT 139 10^3/uL (150-450); RED BLOOD COUNT 3.81 10^6/uL (3.72-5.28); RED CELL DISTRIBUTION WIDTH 15.9 % (11.5-14.0); SEGMENTED NEUTROPHILS % (AUTO) 77.5 % (42-78); TOTAL CELLS COUNTED % (AUTO) 100 %; WHITE BLOOD COUNT 7.6 10^3/uL (4.0-10.5)
[2019-11-21 06:24] LABS: ANION GAP 8 (5-19); BLOOD UREA NITROGEN 37 mg/dL (7-20); CALCIUM 9.2 mg/dL (8.4-10.2); CARBON DIOXIDE 29 mmol/L (22-30); CHLORIDE 105 mmol/L (98-107); GLUCOSE 113 mg/dL (75-110); POTASSIUM 4.2 mmol/L (3.6-5.0)
--- NOTE | 2019-11-21 07:24 | EKG REPORT ---
SEVERITY:- ABNORMAL ECG - SINUS RHYTHM REPOL ABNRM SUGGESTS ISCHEMIA, LATERAL LEADS BORDERLINE PROLONGED QT INTERVAL : Confirmed by: Natalio Amaya MD 21-Nov-2019 07:23:40
[2019-11-21] MEDS ORDERED: HYDROCHLOROTHIAZIDE 12.5 MG TABLET PO SCH (08:00)
[2019-11-21] MEDS: INSULIN LISPRO 100 UNIT/ML 3 ML VIAL SUBCUT SCH ×4 (08:02→21:41)
[2019-11-21] MEDS: HYDRALAZINE HCL INJ/PF 20 MG/1 ML SDV IV PRN ×2 (08:02→17:14)
[2019-11-21 08:41] LABS: ARTERIAL BLOOD BASE EXCESS 1.8 mmol/L; ARTERIAL BLOOD FIO2 ROOM AIR; ARTERIAL BLOOD HCO3 27.8 mmol/L (20-24); ARTERIAL BLOOD O2 SATURATION 95.2 % (94-98); ARTERIAL BLOOD PCO2 49.9 mmHg (35-45); ARTERIAL BLOOD PH 7.36 (7.35-7.45); ARTERIAL BLOOD PO2 79.1 mmHg (80-100); ARTERIAL BLOOD TOTAL CO2 29.3 mmol/L (21-25)
[2019-11-21 09:04] LABS: URINE AMPHETAMINES SCREEN NEGATIVE; URINE BARBITURATES SCREEN NEGATIVE; URINE BENZODIAZEPINES SCREEN NEGATIVE; URINE COCAINE SCREEN NEGATIVE; URINE METHADONE SCREEN NEGATIVE; URINE PHENCYCLIDINE SCREEN NEGATIVE
[2019-11-21 09:12] LABS: URINE MARIJUANA (THC) SCREEN UNCONFIRMED POSITIVE
[2019-11-21] MEDS: METOPROLOL TARTRATE 50 MG TABLET PO SCH ×2 (10:17→21:42)
[2019-11-21] MEDS: AMLODIPINE BESYLATE 10 MG TABLET PO SCH (10:17)
[2019-11-21] MEDS: PANTOPRAZOLE SODIUM 40 MG VIAL IV SCH ×2 (10:21→21:42)
[2019-11-21] MEDS ORDERED: MORPHINE SULFATE 10 MG/ML INJ IV PRN (11:04)
[2019-11-21 14:18] LABS: ANION GAP 11 (5-19); BLOOD UREA NITROGEN 31 mg/dL (7-20); CALCIUM 8.4 mg/dL (8.4-10.2); CARBON DIOXIDE 24 mmol/L (22-30); CHLORIDE 104 mmol/L (98-107); GLUCOSE 286 mg/dL (75-110)
[2019-11-21] MEDS ORDERED: DIAZEPAM 2 MG TABLET PO PRN (16:25)
--- NOTE | 2019-11-21 16:45 | PDOC PROGRESS REPORT ---
Subjective Progress Note for:: 11/21/19 Subjective:: Patient was seen on morning rounds. She was found resting in bed on room air. She was sleeping upon my entry but woke easily when I said her name. She is quite fatigued and falls back to sleep multiple times during our discussion. She does continue to have nausea with vomiting; emesis bed found to have clear yellow bile. She does report that her abdominal discomfort and nausea is somewhat improved as compared to yesterday. She does report generalized abdomi nal discomfort related to heaving. Otherwise, her primary complaint is fatigue and has to go back to sleep. She does deny fever, chest pain, and shortness of breath. No other questions or concerns expressed at this time. Nursing reports family members have indicated that the patient has heavy alcohol use. Reason For Visit: ABDOMINAL PAIN INTRACTABLE VOMITING WITH NAUSEA Physical Exam Vital Signs: Temp Pulse Resp BP Pulse Ox 97.6 F 107 H 16 154/83 H 98 11/21/19 04:33 11/21/19 07:00 11/21/19 04:33 11/21/19 04:33 11/21/19 04:33 Intake & Output 11/20/19 11/21/19 11/22/19 06:59 06:59 06:59 Intake Total 3050 Output Total 850 Balance 2200 Weight 55.5 kg 55.5 kg General appearance: PRESENT: no acute distress, disheveled, well-developed, well-nourished - overweight Head exam: PRESENT: atraumatic, normocephalic Eye exam: PRESENT: conjunctiva pink, EOMI, PERRLA. ABSENT: scleral icterus Mouth exam: PRESENT: moist, tongue midline Teeth exam: PRESENT: poor dentation Respiratory exam: PRESENT: clear to auscultation chai, symmetrical, unlabored. ABSENT: rales, rhonchi, wheezes Cardiovascular exam: PRESENT: RRR, +S1, +S2. ABSENT: diastolic murmur, rubs, systolic murmur Vascular exam: PRESENT: normal capillary refill GI/Abdominal exam: PRESENT: hypoactive bowel sounds, soft, tenderness - generalized. ABSENT: distended, guarding, mass, organolmegaly, rebound Rectal exam: PRESENT: deferred Extremities exam: PRESENT: full ROM. ABSENT: calf tenderness, clubbing, pedal edema Neurological exam: PRESENT: alert, awake, oriented to person, oriented to place, oriented to time, oriented to situation, CN II-XII grossly intact, other - fatigued. ABSENT: motor sensory deficit Psychiatric exam: PRESENT: appropriate affect, normal mood. ABSENT: homicidal ideation, suicidal ideation Skin exam: PRESENT: dry, intact, warm. ABSENT: cyanosis, rash Results Laboratory Results: 11/21/19 05:35 11/21/19 13:43 11/20/19 11/20/19 11/20/19 14:09 16:30 19:47 WBC RBC Hgb Hct MCV MCH MCHC RDW Plt Count Seg Neutrophils % Carbonic Acid HCO3/H2CO3 Ratio ABG pH ABG pCO2 ABG pO2 ABG HCO3 ABG O2 Saturation ABG Base Excess FiO2 Sodium Potassium Chloride Carbon Dioxide Anion Gap BUN Creatinine Est GFR ( Amer) Glucose Lactic Acid 2.9 H 2.1 Calcium Magnesium 2.1 11/20/19 11/20/19 11/21/19 23:06 23:06 05:35 WBC 7.6 RBC 3.81 Hgb 11.4 L Hct 33.0 L MCV 87 MCH 30.0 MCHC 34.6 RDW 15.9 H Plt Count 139 L Seg Neutrophils % 77.5 Carbonic Acid HCO3/H2CO3 Ratio ABG pH ABG pCO2 ABG pO2 ABG HCO3 ABG O2 Saturation ABG Base Excess FiO2 Sodium 142.0 Potassium 3.6 D Chloride 103 Carbon Dioxide 32 H Anion Gap 7 BUN 37 H Creatinine 1.81 H Est GFR ( Amer) 36 L Glucose 226 H Lactic Acid 4.0 H Calcium 9.5 Magnesium 2.0 11/21/19 11/21/19 11/21/19 05:35 07:30 08:30 WBC RBC Hgb Hct MCV MCH MCHC RDW Plt Count Seg Neutrophils % Carbonic Acid 1.50 H HCO3/H2CO3 Ratio 18:1 ABG pH 7.36 ABG pCO2 49.9 H ABG pO2 79.1 L ABG HCO3 27.8 H ABG O2 Saturation 95.2 ABG Base Excess 1.8 FiO2 ROOM AIR Sodium 142.3 Potassium 4.2 Chloride 105 Carbon Dioxide 29 Anion Gap 8 BUN 37 H Creatinine 1.85 H Est GFR ( Amer) 35 L Glucose 113 H Lactic Acid 0.9 Calcium 9.2 Magnesium 1.9 11/21/19 13:43 WBC RBC Hgb Hct MCV MCH MCHC RDW Plt Count Seg Neutrophils % Carbonic Acid HCO3/H2CO3 Ratio ABG pH ABG pCO2 ABG pO2 ABG HCO3 ABG O2 Saturation ABG Base Excess FiO2 Sodium 139.3 Potassium 4.0 Chloride 104 Carbon Dioxide 24 Anion Gap 11 BUN 31 H Creatinine 1.45 H Est GFR ( Amer) 46 L Glucose 286 H Lactic Acid Calcium 8.4 Magnesium 11/20/19 14:09 Troponin I < 0.012 Impressions: Abdomen/Pelvis CT 11/20/19 00:00 IMPRESSION: 1. Atrophic left kidney unchanged from prior. There is a striated appearance of the nephrogram, which may be secondary to chronic atrophy, however pyelonephritis is not excluded. There is no surrounding perinephric inflammatory change or fluid. No hydronephrosis. Clinical correlation and correlation with urinalysis recommended. 2. Moderate hepatic steatosis. Chest X-Ray 11/20/19 12:44 IMPRESSION: NO SIGNIFICANT RADIOGRAPHIC FINDING IN THE CHEST. Assessment and Plan - Diagnosis (1) Acute kidney injury Is this a current diagnosis for this admission?: Yes Plan: Improved; Cr 1.85-> 1.45 Acute kidney injury most likely due to volume loss with her nausea and vomiting. Continue IV fluids. Avoid nephrotoxic medications as able. Follow-up chemistry. (2) Diabetic hyperosmolar non-ketotic state Is this a current diagnosis for this admission?: Yes Plan: Improved. Glucose now 113/286; improved from 597. Normal anion gap and bicarb. Negative ketones in urine. Lactic acid has normalized. Currently on consistent carb/clear liquid diet. Accu-Cheks before meals and at bedtime with Humalog with sliding scale coverage. Hypoglycemia protocol in place. Registered dietitian and educator senior clinical consulted. (3) Diarrhea Qualifiers: Diarrhea type: unspecified type Qualified Code(s): R19.7 - Diarrhea, unspecified Is this a current diagnosis for this admission?: Yes Plan: No further episodes per patient. Stool culture pending. (4) Hematemesis Qualifiers: Nausea presence: with nausea Qualified Code(s): K92.0 - Hematemesis Is this a current diagnosis for this admission?: Yes Plan: There was no jeff blood in her emesis. Tested Gastroccult positive. She was on several medications in the anti-inflammatory/aspirin class and she could also have a gastritis. Occult stool negative. Hgb stable; downward trend correlates with IVF. Continue Protonix 40 mg twice daily. Consider Carafate. Consider GI consultation. Monitor closely; follow up CBC. (5) Hyperglycemia due to diabetes mellitus Is this a current diagnosis for this admission?: Yes Plan: Diabetes management as above. (6) Hypertensive emergency Is this a current diagnosis for this admission?: Yes Plan: Improved BP control today. Continue Metoprolol twice daily and Amlodipine daily. Lopressor IV prn for blood pressure control. Consider resumption of home dose AKIRA-I or HTCz once renal function normalizes. (7) Intractable vomiting with nausea Is this a current diagnosis for this admission?: Yes Plan: Most likely due to the hyperosmolar nonketotic state. She does have a history of marijuana use and this could be contributing; UDS (+) for THC. Continue IVF. Continue control of glucose. Antiemetics as needed. Clear liquid diet; advance slowly as tolerated. (8) Marijuana dependence Is this a current diagnosis for this admission?: Yes Plan: History of marijuana use; UDS positive. Will need to educate on the importance of reduced use/cessation. (9) Metabolic encephalopathy Is this a current diagnosis for this admission?: Yes Plan: Significantly improved; now A&O x4. Answers all questions appropriately. Remains significantly fatigued. Continue supportive care. (10) Urinary tract infection Qualifiers: Urinary tract infection type: acute cystitis Hematuria presence: with hematuria Qualified Code(s): N30.01 - Acute cystitis with hematuria Is this a current diagnosis for this admission?: Yes Plan: Urinalysis revealed white blood cells and moderate leukocyte esterase. Blood cultures negative at 24 hours. Urine culture shows Group B strep. Patient has been empirically placed on IV Rocephin; day #2. - Time Time Spent with patient: 25-34 minutes Medications reviewed and adjusted accordingly: Yes Anticipated discharge: Home
[2019-11-21] MEDS: CEFTRIAXONE 1 GM/D5W RTU 1 GM/50 ML RTUPB IV SCH (17:12)
[2019-11-22] MEDS: NORMAL SALINE 1000 ML 1,000 ML IV PRN ×3 (01:34→14:49)
[2019-11-22 06:51] LABS: ABSOLUTE EOSINOPHILS # (AUTO) 0.1 10^3/uL (0.0-0.6); ABSOLUTE MONOCYTES (AUTO) 0.7 10^3/uL (0.1-1.4); ABSOLUTE NEUT (AUTO) 6.2 10^3/uL (1.7-8.2); BASOPHILS % (AUTO) 0.2 % (0-2); EOSINOPHILS % (AUTO) 0.8 % (0-6); HEMATOCRIT 28.6 % (36.0-47.0); HEMOGLOBIN 9.9 g/dL (12.0-15.5); LYMPHOCYTES % (AUTO) 22.1 % (13-45); MEAN CORPUSCULAR HEMOGLOBIN 30.5 pg (27.0-33.4); MEAN CORPUSCULAR HGB CONC 34.6 g/dL (32.0-36.0); MEAN CORPUSCULAR VOLUME 88 fl (80-97); MONOCYTES % (AUTO) 8.1 % (3-13); PLATELET COUNT 119 10^3/uL (150-450); RED BLOOD COUNT 3.24 10^6/uL (3.72-5.28); SEGMENTED NEUTROPHILS % (AUTO) 68.8 % (42-78); TOTAL CELLS COUNTED % (AUTO) 100 %
[2019-11-22 07:14] LABS: BLOOD UREA NITROGEN 33 mg/dL (7-20); CALCIUM 8.3 mg/dL (8.4-10.2); GLUCOSE 139 mg/dL (75-110); POTASSIUM 3.8 mmol/L (3.6-5.0)
[2019-11-22 07:19] LABS: ANION GAP 5 (5-19); CARBON DIOXIDE 26 mmol/L (22-30); CHLORIDE 107 mmol/L (98-107)
[2019-11-22] MEDS: AMLODIPINE BESYLATE 10 MG TABLET PO SCH ×2 (09:27→10:48)
[2019-11-22] MEDS: NICOTINE 14 MG/24 HR PATCH.TD24 TD SCH ×2 (09:27→21:17)
[2019-11-22] MEDS: INSULIN LISPRO 100 UNIT/ML 3 ML VIAL SUBCUT SCH ×4 (09:27→21:24)
[2019-11-22] MEDS: PANTOPRAZOLE SODIUM 40 MG VIAL IV SCH ×2 (09:28→21:24)
[2019-11-22] MEDS: METOPROLOL TARTRATE 50 MG TABLET PO SCH ×2 (09:28→21:25)
--- NOTE | 2019-11-22 12:16 | PDOC PROGRESS REPORT ---
Subjective Progress Note for:: 11/22/19 Subjective:: Patient was seen on morning rounds. She was found resting in bed on room air. She is A&Ox4; reports she is feeling much better and is asking to advance her diet. She reports she was recently admitted to out of [facility] for pyelonephritis but can't recall her baseline renal function; agreeable to requesting records. She denies fever, chest pain, and shortness of breath. No other questions or concerns expressed at this time. No concerns per nursing. Reason For Visit: ABDOMINAL PAIN INTRACTABLE VOMITING WITH NAUSEA Physical Exam Vital Signs: Temp Pulse Resp BP Pulse Ox 98.3 F 83 16 156/89 H 100 11/22/19 11:25 11/22/19 11:25 11/22/19 11:25 11/22/19 11:25 11/22/19 11:25 Intake & Output 11/21/19 11/22/19 11/23/19 06:59 06:59 06:59 Intake Total 3050 2492 Output Total 850 Balance 2200 2492 Weight 55.5 kg 66.9 kg General appearance: PRESENT: no acute distress, cooperative, well-developed, w ell-nourished - overweight Head exam: PRESENT: atraumatic, normocephalic Eye exam: PRESENT: conjunctiva pink, EOMI, PERRLA. ABSENT: scleral icterus Ear exam: PRESENT: normal external ear exam Mouth exam: PRESENT: moist, tongue midline Respiratory exam: PRESENT: clear to auscultation chai, symmetrical, unlabored. ABSENT: rales, rhonchi, wheezes Cardiovascular exam: PRESENT: RRR, +S1, +S2. ABSENT: diastolic murmur, rubs, systolic murmur Pulses: PRESENT: normal dorsalis pedis pul Vascular exam: PRESENT: normal capillary refill GI/Abdominal exam: PRESENT: normal bowel sounds, soft, tenderness. ABSENT: distended, guarding, mass, organolmegaly, rebound Rectal exam: PRESENT: deferred Extremities exam: PRESENT: full ROM. ABSENT: calf tenderness, clubbing, pedal edema Neurological exam: PRESENT: alert, awake, oriented to person, oriented to place, oriented to time, oriented to situation, CN II-XII grossly intact. ABSENT: motor sensory deficit Psychiatric exam: PRESENT: appropriate affect, normal mood. ABSENT: homicidal ideation, suicidal ideation Skin exam: PRESENT: dry, intact, warm. ABSENT: cyanosis, rash Results Laboratory Results: 11/22/19 06:08 11/22/19 06:08 11/21/19 11/22/19 11/22/19 13:43 06:08 06:08 WBC 9.0 RBC 3.24 L Hgb 9.9 L Hct 28.6 L MCV 88 MCH 30.5 MCHC 34.6 RDW 16.0 H Plt Count 119 L Seg Neutrophils % 68.8 Sodium 139.3 137.5 Potassium 4.0 3.8 Chloride 104 107 Carbon Dioxide 24 26 Anion Gap 11 5 BUN 31 H 33 H Creatinine 1.45 H 1.76 H Est GFR ( Amer) 46 L 37 L Glucose 286 H 139 H Calcium 8.4 8.3 L Magnesium 1.9 11/20/19 13:51 Catheterized Urine Urine Culture - Final Group B Beta Streptococcus Staph Coagulase Negative 11/20/19 14:09 Troponin I < 0.012 Impressions: Abdomen/Pelvis CT 11/20/19 00:00 IMPRESSION: 1. Atrophic left kidney unchanged from prior. There is a striated appearance of the nephrogram, which may be secondary to chronic atrophy, however pyelonephritis is not excluded. There is no surrounding perinephric inflammatory change or fluid. No hydronephrosis. Clinical correlation and correlation with urinalysis recommended. 2. Moderate hepatic steatosis. Chest X-Ray 11/20/19 12:44 IMPRESSION: NO SIGNIFICANT RADIOGRAPHIC FINDING IN THE CHEST. Assessment and Plan - Diagnosis (1) Acute kidney injury Is this a current diagnosis for this admission?: Yes Plan: Cr 1.85-> 1.45-> 1.76 Acute kidney injury most likely due to volume loss with her nausea and vomiting. Possibly underlying chronic disease. Continue IV fluids. Avoid nephrotoxic medications as able. Have consulted nephrology; recommend decreasing amlodipine and following strict I's and O's. We will also request medical records from recent hospital admission. Follow-up chemistry. (2) Diabetic hyperosmolar non-ketotic state Is this a current diagnosis for this admission?: Yes Plan: Resolved Glucose now 113-328; improved from 597. Normal anion gap and bicarb. Negative ketones in urine. Lactic acid has normalized. Advancing to consistent carb/brat diet. A1c 13.8% We will start Lantus. Accu-Cheks before meals and at bedtime with Humalog with sliding scale coverage. Hypoglycemia protocol in place. Registered dietitian and db2 systems programmer consulted. (3) Diarrhea Qualifiers: Diarrhea type: unspecified type Qualified Code(s): R19.7 - Diarrhea, un specified Is this a current diagnosis for this admission?: Yes Plan: No further episodes per patient. Stool culture pending. (4) Hematemesis Qualifiers: Nausea presence: with nausea Qualified Code(s): K92.0 - Hematemesis Is this a current diagnosis for this admission?: Yes Plan: There was no jeff blood in her emesis. Tested Gastroccult positive. She was on several medications in the anti-inflammatory/aspirin class and she could also have a gastritis. Occult stool negative. Hgb stable; downward trend correlates with IVF. Continue Protonix 40 mg twice daily. Consider Carafate. Consider GI consultation. Monitor closely; follow up CBC. (5) Hyperglycemia due to diabetes mellitus Is this a current diagnosis for this admission?: Yes Plan: Diabetes management as above. (6) Hypertensive emergency Is this a current diagnosis for this admission?: Yes Plan: Improved BP control today. Continue Metoprolol twice daily and Amlodipine daily. Will decrease amlodipine today per nephrology's recommendations. Lopressor IV prn for blood pressure control. Consider resumption of home dose AKIRA-I or HTCz once renal function normalizes. (7) Intractable vomiting with nausea Is this a current diagnosis for this admission?: Yes Plan: Resolved. Most likely due to the hyperosmolar nonketotic state. She does have a history of marijuana use and this could be contributing; UDS (+) for THC. Continue IVF. Continue control of glucose. Antiemetics as needed. Advance to brat diet; advance slowly as tolerated. (8) Marijuana dependence Is this a current diagnosis for this admission?: Yes Plan: History of marijuana use; UDS positive. Will need to educate on the importance of reduced use/cessation. (9) Metabolic encephalopathy Is this a current diagnosis for this admission?: Yes Plan: Significantly improved; now A&O x4. Answers all questions appropriately. Remains significantly fatigued. Continue supportive care. (10) Urinary tract infection Qualifiers: Urinary tract infection type: acute cystitis Hematuria presence: with hematuria Qualified Code(s): N30.01 - Acute cystitis with hematuria Is this a current diagnosis for this admission?: Yes Plan: Urinalysis revealed white blood cells and moderate leukocyte esterase. Blood cultures negative at 24 hours. Urine culture shows Group B strep. Patient has been empirically placed on IV Rocephin; day #3. - Time Time Spent with patient: 25-34 minutes Medications reviewed and adjusted accordingly: Yes Anticipated discharge: Home
--- NOTE | 2019-11-22 13:10 | PDOC CONSULTATION ---
Consultation Consult Date: 11/22/19 Provider Consulted: Emigdio PINA Consult reason:: proteinuria and worsening kidney injury. History of Present Illness Admission Date/PCP: 11/20/19 18:40 LYLE ROBERSON DO History of Present Illness: DEEPTHI MARQUEZ is a 49 year old female with a history of diabetes, HTN, atrophic left kidney, bowel necrosis and previous diagnoses of pancreatitis came to the ER by EMS due to N/V/D and a severely elevated blood sugar. She claims that she was up from [place] visiting with her son and grandkids. She claims that she could not find her insulin or other medications so she went several days without it. Her blood sugar started to elevate and then she started to get nausea/vomiting a few days ago. Then the diarrhea started. She claims that she normally does not have either unless her blood sugar get high. Her son then had EMS come pick her up to take her to the ER. When EMS came to get the patient she was incontinent of stool and had blood pressure that was 235/135, blood sugar was also high on EMS's glucometer. EMS gave her Zofran IV and Benadryl IV, 12.5 of Phenergan IM for her nausea. In the ER her creatinine was 1.56, bun of 40, blood glucose was 597, bp was still in the 200s systolic. CT of the abdomen showed an atrophic left kidney that was seen on previous imaging. Also showed moderate hepatic steatosis. Patient was placed on normal saline, give promethazine prn for her nausea, started back on her bp medications, insulin for her diabetes, had her stool tested for c-diff and occult blood. Creatinine was trending down but today it elevated up to 1.7 from 1.4. Today the patient was sitting up in her bed. At the time she is feeling better with only occasional nausea. She no longer is having the diarrhea. She admits to poor compliance with her bp and diabetic medications. She claims that her diabetes has been poorly controlled for 15 years and the same with her blood pressure. She also admits to chronic NSAID use. She denies ever being told that she has underling kidney disease. No decrease in urination, difficulty with urination and flank pain. Past Medical History Cardiac Medical History: Denies: Myocardial Infarction Pulmonary Medical History: Reports: Asthma - DOES NOT USE INHALERS Denies: Tuberculosis Neurological Medical History: Denies: Seizures Endocrine Medical History: Reports: Diabetes Mellitus Type 2 Renal/ Medical History: Denies: Hematuria GI Medical History: Reports: Gastroesophageal Reflux Disease Denies: Hepatitis, Hiatal Hernia Musculoskeltal Medical History: Reports: Arthritis Psychiatric Medical History: Reports: Depression Past Surgical History Past Surgical History: Reports: Section, Orthopedic Surgery - left leg surgery Denies: Appendectomy, Cholecystectomy, Coronary Artery Bypass Graft, Gastric Bypass Surgery, Herniorrhaphy, Hysterectomy, Mastectomy, Pacemaker, Tonsillectomy, Tubal Ligation Social History Lives with: Family Smoking Status: Current Every Day Smoker Cigarettes Packs Per Day: 0.5 Electronic Cigarette use?: No Frequency of Alcohol Use: Occasional Hx Recreational Drug Use: Yes Drugs: Marijuana Hx Prescription Drug Abuse: No - Advance Directive Resuscitation Status: Full Code Family History Family History: None Parental Family History Reviewed: No Children Family History Reviewed: Yes Sibling(s) Family History Reviewed.: Unknown Medication/Allergy Home Medications: Amlodipine Besylate [Norvasc 10 mg Tablet] 10 mg PO DAILY 11/21/19 Aspirin [Aspirin 81 mg Chewable Tablet] 81 mg PO DAILY 11/21/19 Aspirin/Acetaminophen/Caffeine [Excedrin Extra Strength Caplet] 1 tab PO Q6HP PRN 11/21/19 Ca/D3/Mag Ox/Zinc/Shadowgraph Scale Operator/Avelino/Bor [Calcium 600-D3 Plus Caplet] 1 tab PO DAILY 11/21/19 Diclofenac Sodium 75 mg PO BID 11/21/19 Docusate Sodium [Colace 100 mg Capsule] 100 mg PO DAILYP PRN 11/21/19 Folic Acid 0.4 mg PO DAILY 11/21/19 Gabapentin [Neurontin 100 mg Capsule] 100 mg PO DAILY 11/21/19 Lisinopril/Hydrochlorothiazide [Lisinopril-Hctz 20-12.5 mg Tab] 1 each PO DAILY 11/21/19 Metoprolol Succinate [Toprol Xl] 100 mg PO DAILY 11/21/19 Omeprazole Magnesium [Prilosec Otc] 20 mg PO Q6AM 11/21/19 Ondansetron [Zofran Odt 4 mg Tablet] 4 mg PO Q8HP PRN 11/21/19 Allergies/Adverse Reactions: Penicillins Allergy (Severe, Verified 02/11/18 14:08) SOB, ITCHING Sulfa (Sulfonamide Antibiotics) Allergy (Severe, Verified 02/11/18 14:08) SOB, ITCHING hydromorphone HCl [From Dilaudid] Allergy (Intermediate, Verified 02/11/18 14:08) ITCHING Review of Systems Constitutional: PRESENT: fatigue, headache(s), weakness. ABSENT: chills, fever(s) Eyes: ABSENT: visual disturbances Cardiovascular: ABSENT: chest pain, dyspnea on exertion, edema, orthropnea, palpitations Respiratory: ABSENT: cough, dyspnea, sputum Gastrointestinal: PRESENT: abdominal pain, diarrhea, nausea, vomiting. ABSENT: coffee ground emesis, constipation Genitourinary: ABSENT: difficulty urinating, dysuria, hematuria Integumentary: PRESENT: diaphoresis Neurological: PRESENT: confusion, dizziness, weakness Physical Exam Vital Signs: Temp Pulse Resp BP Pulse Ox 98.3 F 83 16 156/89 H 100 11/22/19 11:25 11/22/19 11:25 11/22/19 11:25 11/22/19 11:25 11/22/19 11:25 Intake & Output 11/21/19 11/22/19 11/23/19 06:59 06:59 06:59 Intake Total 3050 2492 Output Total 850 Balance 2200 2492 Weight 55.5 kg 66.9 kg General appearance: PRESENT: no acute distress, well-developed, well-nourished Mouth exam: PRESENT: dry mucosa, neck supple. ABSENT: moist Neck exam: ABSENT: JVD, tracheal deviation Respiratory exam: PRESENT: clear to auscultation chai. ABSENT: accessory muscle use, crackles, rales, rhonchi Cardiovascular exam: PRESENT: +S1, +S2 GI/Abdominal exam: PRESENT: soft, tenderness - -mild in the left upper and lower Extremities exam: ABSENT: pedal edema, tenderness, +1 edema, +2 edema Musculoskeletal exam: PRESENT: normal inspection. ABSENT: tenderness Neurological exam: PRESENT: alert, awake, oriented to person, oriented to place, oriented to time, oriented to situation Skin exam: PRESENT: dry, intact, warm. ABSENT: cyanosis Results Laboratory Results: 11/22/19 06:08 11/22/19 06:08 11/21/19 11/22/19 11/22/19 13:43 06:08 06:08 WBC 9.0 RBC 3.24 L Hgb 9.9 L Hct 28.6 L MCV 88 MCH 30.5 MCHC 34.6 RDW 16.0 H Plt Count 119 L Seg Neutrophils % 68.8 Sodium 139.3 137.5 Potassium 4.0 3.8 Chloride 104 107 Carbon Dioxide 24 26 Anion Gap 11 5 BUN 31 H 33 H Creatinine 1.45 H 1.76 H Est GFR ( Amer) 46 L 37 L Glucose 286 H 139 H Calcium 8.4 8.3 L Magnesium 1.9 11/20/19 13:51 Catheterized Urine Urine Culture - Final Group B Beta Streptococcus Staph Coagulase Negative 11/20/19 14:09 Troponin I < 0.012 Impressions: Abdomen/Pelvis CT 11/20/19 00:00 IMPRESSION: 1. Atrophic left kidney unchanged from prior. There is a striated appearance of the nephrogram, which may be secondary to chronic atrophy, however pyelonephritis is not excluded. There is no surrounding perinephric inflammatory change or fluid. No hydronephrosis. Clinical correlation and correlation with urinalysis recommended. 2. Moderate hepatic steatosis. Chest X-Ray 11/20/19 12:44 IMPRESSION: NO SIGNIFICANT RADIOGRAPHIC FINDING IN THE CHEST. Assessment & Plan - Diagnosis (1) Acute kidney injury Is this a current diagnosis for this admission?: Yes Plan: nonoliguric, from dehydration from n/v/d. Other factors affecting her include her coming into the hospital in a hypertensive emergency. Recently jump in creatinine was most likely from too tightly controlled bp for having a bp in the 200s previously. Having amlodipine cut to 5mg for now. Giving saline at 100mL an hour. Likely some underlining CKD with her history of noncompliance, NSAID use, atrophic left kidney and proteinuria from her diabetes. Will look to get records from her primary care in [place] to get a baseline. (2) Proteinuria Plan: most likely from her poorly controlled diabetes. Will get records from her primary. (3) Anemia Plan: drawing labs (4) Hypertensive emergency Is this a current diagnosis for this admission?: Yes Plan: bp has improved, looks to have moments of it being too tight. Having amloipine cut to 5mg qd for now. Patient has most likely been noncompliant with her medications for some time. Recommend slow decreasing bp to below 140. For now I recommend her systolic be around the 150s to 160s for a few more days. (5) Intractable vomiting with nausea Is this a current diagnosis for this admission?: Yes Plan: on promethazine 25mg prn as needed (6) Diabetic hyperosmolar non-ketotic state Is this a current diagnosis for this admission?: Yes Plan: on sliding scale insulin. Discussed with her the need to get tighter control of her diabetes. Discussed the need to have an A1c below 7. (7) Urinary tract infection Qualifiers: Urinary tract infection type: acute cystitis Hematuria presence: with hematuria Qualified Code(s): N30.01 - Acute cystitis with hematuria Is this a current diagnosis for this admission?: Yes Plan: on ceftriaxone (8) Diarrhea Qualifiers: Diarrhea type: unspecified type Qualified Code(s): R19.7 - Diarrhea, unspecified Is this a current diagnosis for this admission?: Yes Plan: resolved
[2019-11-22 13:35] LABS: ABSOLUTE RETICS # 0.041 10^6/uL (0.028-0.122); RETICULOCYTE COUNT (AUTO) 1.27 % (0.66-2.85)
[2019-11-22 15:26] LABS: IRON(TIBC) 42.4 ug/dL (37-170)
[2019-11-22] MEDS: CEFTRIAXONE 1 GM/D5W RTU 1 GM/50 ML RTUPB IV SCH (17:28)
[2019-11-22] MEDS ORDERED: INSULIN GLARGINE,HUM.REC.ANLOG 1,000 UNIT/10 ML VIAL (PYX) SUBCUT ONE (22:00)
[2019-11-22] MEDS ORDERED: INSULIN GLARGINE,HUM.REC.ANLOG 1,000 UNIT/10 ML VIAL SUBCUT SCH (22:00)
[2019-11-23] MEDS: NORMAL SALINE 1000 ML 1,000 ML IV PRN (03:05)
[2019-11-23 03:32] LABS: UR PRO/CREAT RATIO RESULT 1.6 mg/mg (0.0-0.2); URINE CREATININE 49.9 mg/dL (15-278); URINE PROTEIN 81.4 mg/dL (<12)
[2019-11-23 06:55] LABS: ABSOLUTE EOSINOPHILS # (AUTO) 0.2 10^3/uL (0.0-0.6); ABSOLUTE LYMPHOCYTES (AUTO) 1.8 10^3/uL (0.5-4.7); ABSOLUTE MONOCYTES (AUTO) 0.5 10^3/uL (0.1-1.4); ABSOLUTE NEUT (AUTO) 3.2 10^3/uL (1.7-8.2); BASOPHILS % (AUTO) 0.3 % (0-2); EOSINOPHILS % (AUTO) 3.4 % (0-6); HEMATOCRIT 29.4 % (36.0-47.0); HEMOGLOBIN 10.1 g/dL (12.0-15.5); LYMPHOCYTES % (AUTO) 31.5 % (13-45); MEAN CORPUSCULAR HEMOGLOBIN 30.6 pg (27.0-33.4); MEAN CORPUSCULAR HGB CONC 34.5 g/dL (32.0-36.0); MEAN CORPUSCULAR VOLUME 89 fl (80-97); MONOCYTES % (AUTO) 9.2 % (3-13); PLATELET COUNT 105 10^3/uL (150-450); RED BLOOD COUNT 3.31 10^6/uL (3.72-5.28); RED CELL DISTRIBUTION WIDTH 15.9 % (11.5-14.0); SEGMENTED NEUTROPHILS % (AUTO) 55.6 % (42-78); TOTAL CELLS COUNTED % (AUTO) 100 %; WHITE BLOOD COUNT 5.7 10^3/uL (4.0-10.5)
[2019-11-23 07:24] LABS: BLOOD UREA NITROGEN 25 mg/dL (7-20); CALCIUM 8.2 mg/dL (8.4-10.2); CARBON DIOXIDE 25 mmol/L (22-30); GLUCOSE 353 mg/dL (75-110); POTASSIUM 4.2 mmol/L (3.6-5.0)
[2019-11-23 07:30] LABS: ANION GAP 5 (5-19); CHLORIDE 106 mmol/L (98-107)
[2019-11-23] MEDS: INSULIN LISPRO 100 UNIT/ML 3 ML VIAL SUBCUT SCH ×2 (08:02→12:30)
[2019-11-23] MEDS: METOPROLOL TARTRATE 50 MG TABLET PO SCH (10:03)
[2019-11-23] MEDS: NICOTINE 14 MG/24 HR PATCH.TD24 TD SCH (10:04)
[2019-11-23] MEDS: AMLODIPINE BESYLATE 10 MG TABLET PO SCH (10:04)
[2019-11-23] MEDS: PANTOPRAZOLE SODIUM 40 MG VIAL IV SCH (10:04)
[2019-11-23] MEDS ORDERED: FERRIC CARBOXYMALTOSE INJ 750 MG/15 ML VIAL IV PRN (11:27)
[2019-11-23] MEDS ORDERED: NORMAL SALINE 1000 ML 1,000 ML IV PRN (11:28)
--- NOTE | 2019-11-23 11:37 | PDOC PROGRESS REPORT ---
Subjective Progress Note for:: 11/23/19 Subjective:: Patient was sitting up in her bed eating breakfast at the time of examination. She claims to be feeling better and is ready to get out of the hospital. She denies chest pain, SOB, n/v/d/c. Urine output continues to be high. Reason For Visit: ABDOMINAL PAIN INTRACTABLE VOMITING WITH NAUSEA Physical Exam Vital Signs: Temp Pulse Resp BP Pulse Ox 99.0 F 84 18 163/71 H 99 11/23/19 07:25 11/23/19 07:25 11/23/19 07:25 11/23/19 07:25 11/23/19 07:25 Intake & Output 11/22/19 11/23/19 11/24/19 06:59 06:59 06:59 Intake Total 2492 2890 Output Total 1854 Balance 2492 1036 Weight 66.9 kg 65.9 kg 65.9 kg General appearance: PRESENT: no acute distress, well-developed, well-nourished Mouth exam: PRESENT: moist, neck supple Neck exam: ABSENT: JVD, tracheal deviation Respiratory exam: PRESENT: clear to auscultation chai. ABSENT: crackles, rales, rhonchi, wheezes Cardiovascular exam: PRESENT: +S1, +S2 GI/Abdominal exam: PRESENT: soft. ABSENT: tenderness - -mild in the left upper and lower Extremities exam: ABSENT: tenderness, +1 edema, +2 edema Musculoskeletal exam: PRESENT: normal inspection. ABSENT: tenderness Neurological exam: PRESENT: alert, awake, oriented to person, oriented to place, oriented to time, oriented to situation Skin exam: PRESENT: dry, intact, warm. ABSENT: cyanosis Results Laboratory Results: 11/23/19 06:31 11/23/19 06:31 11/22/19 11/22/19 11/23/19 06:08 14:38 06:31 WBC 5.7 RBC 3.31 L Hgb 10.1 L Hct 29.4 L MCV 89 MCH 30.6 MCHC 34.5 RDW 15.9 H Plt Count 105 L Seg Neutrophils % 55.6 Retic Count (auto) 1.27 Sodium Potassium Chloride Carbon Dioxide Anion Gap BUN Creatinine Est GFR ( Amer) Glucose Calcium Magnesium Iron 42.4 TIBC 271 % Saturation 16 Ferritin 51.10 Vitamin B12 832.0 Folate 19.80 11/23/19 06:31 WBC RBC Hgb Hct MCV MCH MCHC RDW Plt Count Seg Neutrophils % Retic Count (auto) Sodium 136.0 L Potassium 4.2 Chloride 106 Carbon Dioxide 25 Anion Gap 5 BUN 25 H Creatinine 1.63 H Est GFR ( Amer) 41 L Glucose 353 H Calcium 8.2 L Magnesium 1.8 Iron TIBC % Saturation Ferritin Vitamin B12 Folate 11/20/19 13:51 Catheterized Urine Urine Culture - Final Group B Beta Streptococcus Staph Coagulase Negative 11/20/19 14:09 Troponin I < 0.012 Impressions: Abdomen/Pelvis CT 11/20/19 00:00 IMPRESSION: 1. Atrophic left kidney unchanged from prior. There is a striated appearance of the nephrogram, which may be secondary to chronic atrophy, however pyelonephritis is not excluded. There is no surrounding perinephric inflam matory change or fluid. No hydronephrosis. Clinical correlation and correlation with urinalysis recommended. 2. Moderate hepatic steatosis. Chest X-Ray 11/20/19 12:44 IMPRESSION: NO SIGNIFICANT RADIOGRAPHIC FINDING IN THE CHEST. Assessment & Plan - Diagnosis (1) Acute kidney injury Is this a current diagnosis for this admission?: Yes Plan: nonoliguric, decreased normal saline to 50mL an hour. Highly likely that she has underlining CKD with the proteinuria, poor control of her diabetes and HTN. Will get a PTH and phosphorus to confirm that. She looks to be stable at this time. (2) Proteinuria Plan: 1.6g/day, from poor control of her diabetes (3) Anemia Plan: looks to need iron, discussed with the risks and benefits of IV injectofer. Will give one 750mg dose of IV injectofer. (4) Hypertensive emergency Is this a current diagnosis for this admission?: Yes Plan: continue with current meds. BP is 150s to 160s. After a couple more days in that range her amlodipine can be increased to 10mg. Looking for a final range under 140s systolic. (5) Intractable vomiting with nausea Is this a current diagnosis for this admission?: Yes Plan: looks to have resolved (6) Diabetic hyperosmolar non-ketotic state Is this a current diagnosis for this admission?: Yes Plan: continues to be in the 300s, on sliding scale insulin (7) Urinary tract infection Qualifiers: Urinary tract infection type: acute cystitis Hematuria presence: with hematuria Qualified Code(s): N30.01 - Acute cystitis with hematuria Is this a current diagnosis for this admission?: Yes Plan: on ceftriaxone (8) Diarrhea Qualifiers: Diarrhea type: unspecified type Qualified Code(s): R19.7 - Diarrhea, unspecified Is this a current diagnosis for this admission?: Yes Plan: resolved
[2019-11-23 12:28] VITALS: BP 169/85
[2019-11-23] MEDS ORDERED: FERRIC CARBOXYMALTOSE 750 MG in NORMAL SALINE 250 ML IV ONE (14:00)
--- NOTE | 2019-11-23 14:04 | PDOC DISCHARGE SUMMARY ---
Impression - Admit/DC Date/PCP Admission Date/Primary Care Provider: 11/20/19 18:40 LYLE ROBERSON DO Discharge Date: 11/23/19 - Discharge Diagnosis (1) Acute kidney injury Is this a current diagnosis for this admission?: Yes (2) Diabetic hyperosmolar non-ketotic state Is this a current diagnosis for this admission?: Yes (3) Diarrhea Is this a current diagnosis for this admission?: Yes (4) Hematemesis Is this a current diagnosis for this admission?: Yes (5) Hyperglycemia due to diabetes mellitus Is this a current diagnosis for this admission?: Yes (6) Hypertensive emergency Is this a current diagnosis for this admission?: Yes (7) Intractable vomiting with nausea Is this a current diagnosis for this admission?: Yes (8) Marijuana dependence Is this a current diagnosis for this admission?: Yes (9) Metabolic encephalopathy Is this a current diagnosis for this admission?: Yes (10) Urinary tract infection Is this a current diagnosis for this admission?: Yes (11) CKD (chronic kidney disease) stage 3, GFR 30-59 ml/min Is this a current diagnosis for this admission?: Yes - Additional Information Resuscitation Status: Full Code Discharge Diet: Cardiac, Diabetic Discharge Activity: Activity As Tolerated, Balance Activity w/Rest Referrals: LYLE ROBERSON DO [Primary Care Provider] - Follow up as needed Prescriptions: Insulin Lispro [Humalog Kwikpen U-100] 100 unit SQ ACHS #1 insuln.pen Insulin Glargine,Hum.rec.anlog [Lantus Insulin 100 Unit/mL Insulin Pen] 12 unit SUBCUT QHS #3 ml Metoprolol Tartrate [Lopressor 50 mg Tablet] 50 mg PO Q12 #60 tablet Nicotine [Nicoderm 14 mg/24 Hr Transdermal Patch] 1 each TD DAILY #30 patch.td24 Amlodipine Besylate [Norvasc 10 mg Tablet] 10 mg PO DAILY #30 Amlodipine Besylate [Norvasc 10 mg Tablet] 10 mg PO DAILY #30 tablet Home Medications: Ca/D3/Mag Ox/Zinc/Pararescue Manager/Avelino/Bor [Calcium 600-D3 Plus Caplet] 1 tab PO DAILY 11/21/19 Docusate Sodium [Colace 100 mg Capsule] 100 mg PO DAILYP PRN 11/21/19 Folic Acid 0.4 mg PO DAILY 11/21/19 Gabapentin [Neurontin 100 mg Capsule] 100 mg PO DAILY 11/21/19 Omeprazole Magnesium [Prilosec Otc] 20 mg PO Q6AM 11/21/19 Ondansetron [Zofran Odt 4 mg Tablet] 4 mg PO Q8HP PRN 11/21/19 Acetaminophen [Tylenol 325 mg Tablet] 650 mg PO Q4HP PRN tablet 11/23/19 Amlodipine Besylate [Norvasc 10 mg Tablet] 10 mg PO DAILY #30 11/23/19 Amlodipine Besylate [Norvasc 10 mg Tablet] 10 mg PO DAILY #30 tablet 11/23/19 Insulin Glargine,Hum.rec.anlog [Lantus Insulin 100 Unit/mL Insulin Pen] 12 unit SUBCUT QHS #3 ml 11/23/19 Insulin Lispro [Humalog Kwikpen U-100] 100 unit SQ ACHS #1 insuln.pen 11/23/19 Metoprolol Tartrate [Lopressor 50 mg Tablet] 50 mg PO Q12 #60 tablet 11/23/19 Nicotine [Nicoderm 14 mg/24 Hr Transdermal Patch] 1 each TD DAILY #30 patch.td24 11/23/19 History of Present Illiness History of Present Illness: Per H&P by Evita: DEEPTHI MARQUEZ is a 49 year old female who is a poor historian. The HPI according to the emergency department physician reports that she was brought in by EMS. Patient was found by her son this morning confused, having vomiting and diarrhea [place] and having a blood sugar monitor that read "high." Patient is a known diabetic with a history of pancreatitis and bowel necrosis, was reportedly asymptomatic yesterday. Currently complaining of pain in her lower abdomen. States she has not had alcohol in several months. Patient was incontinent of stool for EMS, blood pressure was 235/135, blood sugar was also high on EMS's glucometer. They did treat her with 8 of Zofran IV and 50 Benadryl IV as well as 12.5 of Phenergan IM for her nausea. Her nausea has improved. Patient was somewhat somnolent for EMS prior to receiving the sedating medications. Patient is reportedly normally compliant with her medications, patient cannot tell me when her last dose of insulin was. Hospital Course Hospital Course: (1) Acute kidney injury Cr 1.85-> 1.45-> 1.76-> 1.36 Acute kidney injury most likely due to volume loss with her nausea and vomiting. Confirmed underlying chronic disease. Admitted to the medical floor and provided generous IV fluids. Nephrology has been consulted; advise tight blood pressure and glucose control. Patient history and records from outside hospital confirmed patient has history of chronic kidney disease stage III. (2) Diabetic hyperosmolar non-ketotic state Resolved Normal anion gap and bicarb. Negative ketones in urine. Lactic acid has normalized. Advancing to consistent carb/cardiac diet. A1c 13.8% The patient had the opportunity to meet with registered dietitian and community health educator. She is discharged home on Lantus and sliding scale Humalog. (3) Diarrhea No further episodes per patient. Stool culture negative (4) Hematemesis There was no jeff blood in her emesis. Tested Gastroccult positive. She was on several medications in the anti-inflammatory/aspirin class and she could also have a gastritis. Occult stool negative. Hgb stable; no evidence of further bleeding The patient was placed on twice daily Protonix and Carafate. At discharge, she is instructed to resume her Prilosec. Recommend outpatient gastroenterology follow-up to consider EGD. (5) Hyperglycemia due to diabetes mellitus Diabetes management as above. (6) Hypertensive emergency Improved BP control Continue Metoprolol twice daily and Amlodipine daily. Recommend close follow-up with her primary care provider for further blood pre ssure management. (7) Intractable vomiting with nausea Resolved. Most likely due to the hyperosmolar nonketotic state. She does have a history of marijuana use and this could be contributing; UDS (+) for THC. Patient was provided generous IV fluids and antiemetics. She was initially n.p.o.; advance to clears as tolerated. She is now tolerating a consistent carb/cardiac diet without symptoms. (8) Marijuana dependence History of marijuana use; UDS positive. Educated on the importance of reduced use/cessation. (9) Metabolic encephalopathy Resolved. Secondary #2. (10) Urinary tract infection Urinalysis revealed white blood cells and moderate leukocyte esterase. Blood cultures negative at 48 hours. Urine culture shows Group B strep. Completed full course of antibiotics while admitted. Asymptomatic Physical Exam Vital Signs: Temp Pulse Resp BP Pulse Ox 98.4 F 78 19 169/85 H 100 11/23/19 11:44 11/23/19 11:44 11/23/19 11:44 11/23/19 11:44 11/23/19 11:44 Intake & Output 11/22/19 11/23/19 11/24/19 06:59 06:59 06:59 Intake Total 2492 2890 700 Output Total 1854 Balance 2492 1036 700 Weight 66.9 kg 65.9 kg 65.9 kg General appearance: PRESENT: no acute distress, cooperative, well-developed, well-nourished Head exam: PRESENT: atraumatic, normocephalic Eye exam: PRESENT: conjunctiva pink, EOMI, PERRLA. ABSENT: scleral icterus Mouth exam: PRESENT: moist, tongue midline Respiratory exam: PRESENT: clear to auscultation chai, symmetrical, unlabored. ABSENT: rales, rhonchi, wheezes Cardiovascular exam: PRESENT: RRR, +S1, +S2. ABSENT: diastolic murmur, rubs, systolic murmur Pulses: PRESENT: normal dorsalis pedis pul Vascular exam: PRESENT: normal capillary refill Extremities exam: PRESENT: full ROM. ABSENT: calf tenderness, clubbing, pedal edema Musculoskeletal exam: PRESENT: ambulatory Neurological exam: PRESENT: alert, awake, oriented to person, oriented to place, oriented to time, oriented to situation, CN II-XII grossly intact. ABSENT: motor sensory deficit Psychiatric exam: PRESENT: appropriate affect, normal mood. ABSENT: homicidal ideation, suicidal ideation Skin exam: PRESENT: dry, intact, warm. ABSENT: cyanosis, rash Results Laboratory Results: WBC 5.7 10^3/uL (4.0-10.5) 11/23/19 06:31 RBC 3.31 10^6/uL (3.72-5.28) L 11/23/19 06:31 Hgb 10.1 g/dL (12.0-15.5) L 11/23/19 06:31 Hct 29.4 % (36.0-47.0) L 11/23/19 06:31 MCV 89 fl (80-97) 11/23/19 06:31 MCH 30.6 pg (27.0-33.4) 11/23/19 06:31 MCHC 34.5 g/dL (32.0-36.0) 11/23/19 06:31 RDW 15.9 % (11.5-14.0) H 11/23/19 06:31 Plt Count 105 10^3/uL (150-450) L 11/23/19 06:31 Lymph % (Auto) 31.5 % (13-45) 11/23/19 06:31 [place] % (Auto) 9.2 % (3-13) 11/23/19 06:31 Eos % (Auto) 3.4 % (0-6) 11/23/19 06:31 Baso % (Auto) 0.3 % (0-2) 11/23/19 06:31 Reticulocyte # 0.041 10^6/uL (0.028-0.122) 11/22/19 06:08 Absolute Neuts (auto) 3.2 10^3/uL (1.7-8.2) 11/23/19 06:31 Absolute Lymphs (auto) 1.8 10^3/uL (0.5-4.7) 11/23/19 06:31 Absolute Monos (auto) 0.5 10^3/uL (0.1-1.4) 11/23/19 06:31 Absolute Eos (auto) 0.2 10^3/uL (0.0-0.6) 11/23/19 06:31 Absolute Basos (auto) 0.0 10^3/uL (0.0-0.2) 11/23/19 06:31 Seg Neutrophils % 55.6 % (42-78) 11/23/19 06:31 Retic Count (auto) 1.27 % (0.66-2.85) 11/22/19 06:08 PT 12.0 SEC (11.4-15.4) 11/20/19 14:09 INR 0.89 11/20/19 14:09 Carbonic Acid 1.50 mmol/L (1.05-1.35) H 11/21/19 08:30 HCO3/H2CO3 Ratio 18:1 11/21/19 08:30 ABG pH 7.36 (7.35-7.45) 11/21/19 08:30 ABG pCO2 49.9 mmHg (35-45) H 11/21/19 08:30 ABG pO2 79.1 mmHg (80-100) L 11/21/19 08:30 ABG HCO3 27.8 mmol/L (20-24) H 11/21/19 08:30 ABG Total CO2 29.3 mmol/L (21-25) H 11/21/19 08:30 ABG O2 Saturation 95.2 % (94-98) 11/21/19 08:30 ABG Base Excess 1.8 mmol/L 11/21/19 08:30 VBG pH 7.32 (7.30-7.42) 11/20/19 14:09 VBG pCO2 65.6 mmHg (35-63) H* 11/20/19 14:09 VBG HCO3 33.2 mmol/L (20-32) H 11/20/19 14:09 VBG Base Excess 5.0 mmol/L 11/20/19 14:09 FiO2 ROOM AIR 11/21/19 08:30 Sodium 136.0 mmol/L (137-145) L 11/23/19 06:31 Potassium 4.2 mmol/L (3.6-5.0) 11/23/19 06:31 Chloride 106 mmol/L (98-107) 11/23/19 06:31 Carbon Dioxide 25 mmol/L (22-30) 11/23/19 06:31 Anion Gap 5 (5-19) 11/23/19 06:31 BUN 25 mg/dL (7-20) H 11/23/19 06:31 Creatinine 1.63 mg/dL (0.52-1.25) H 11/23/19 06:31 Est GFR ( Amer) 41 (>60) L 11/23/19 06:31 Est GFR (MDRD) Non-Af 34 (>60) L 11/23/19 06:31 Glucose 353 mg/dL (75-110) H 11/23/19 06:31 POC Glucose 163 mg/dL (70-110) H 11/23/19 11:40 Hemoglobin A1c % 13.8 % (4.7-6.0) H 11/21/19 05:35 Lactic Acid 0.9 mmol/L (0.7-2.1) 11/21/19 07:30 Calcium 8.2 mg/dL (8.4-10.2) L 11/23/19 06:31 Phosphorus 3.3 mg/dL (2.5-4.5) 11/23/19 06:31 Magnesium 1.8 mg/dL (1.6-2.3) 11/23/19 06:31 Iron 42.4 ug/dL (37-170) 11/22/19 14:38 TIBC 271 ug/dL (250-450) 11/22/19 14:38 % Saturation 16 % 11/22/19 14:38 Ferritin 51.10 ng/mL (6.2-137.0) 11/22/19 14:38 Total Bilirubin 0.7 mg/dL (0.2-1.3) 11/20/19 14:09 Direct Bilirubin 0.1 mg/dL (0.0-0.4) 11/20/19 14:09 Neonat Total Bilirubin Not Reportable 11/20/19 14:09 Neonat Direct Bilirubin Not Reportable 11/20/19 14:09 Neonat Indirect Bili Not Reportable 11/20/19 14:09 AST 41 U/L (14-36) H 11/20/19 14:09 ALT 17 U/L (<35) 11/20/19 14:09 Alkaline Phosphatase 316 U/L (38-126) H 11/20/19 14:09 Troponin I < 0.012 ng/mL 11/20/19 14:09 Total Protein 7.9 g/dL (6.3-8.2) 11/20/19 14:09 Albumin 4.5 g/dL (3.5-5.0) 11/20/19 14:09 Lipase 161.2 U/L (23-300) 11/20/19 14:09 Vitamin B12 832.0 pg/mL (239-931) 11/22/19 14:38 Folate 19.80 ng/mL (>2.76) 11/22/19 14:38 Serum HCG, Qual NEGATIVE (NEGATIVE) 11/20/19 14:09 Urine Color COLORLESS 11/20/19 13:51 Urine Appearance CLEAR 11/20/19 13:51 Urine pH 8.0 (5.0-9.0) 11/20/19 13:51 Ur Specific [place] 1.012 11/20/19 13:51 Urine Protein 100 mg/dL (NEGATIVE) H 11/20/19 13:51 Urine Glucose (UA) >=500 mg/dL (NEGATIVE) H 11/20/19 13:51 Urine Ketones NEGATIVE mg/dL (NEGATIVE) 11/20/19 13:51 Urine Blood SMALL (NEGATIVE) H 11/20/19 13:51 Urine Nitrite (Reflex) NEGATIVE (NEGATIVE) 11/20/19 13:51 Urine Bilirubin NEGATIVE (NEGATIVE) 11/20/19 13:51 Urine Urobilinogen NEGATIVE mg/dL (<2.0) 11/20/19 13:51 Leukocyte Esterase Rfl MODERATE (NEGATIVE) H 11/20/19 13:51 Urine RBC (Auto) 5 /HPF 11/20/19 13:51 Urine Bacteria (Auto) TRACE /HPF 11/20/19 13:51 Urine WBC (Reflex) 103 /HPF 11/20/19 13:51 Squamous Epi Cells Auto <1 /HPF 11/20/19 13:51 Urine Mucus (Auto) RARE /LPF 11/20/19 13:51 Urine Creatinine 49.9 mg/dL (15-278) 11/23/19 01:40 Protein/Creatinin Ratio 1.6 mg/mg (0.0-0.2) H 11/23/19 01:40 Urine Total Protein 81.4 mg/dL (<12) H 11/23/19 01:40 Urine Ascorbic Acid NEGATIVE (NEGATIVE) 11/20/19 13:51 POC Gastric Occult Bld POSITIVE (NEGATIVE) 11/20/19 14:08 POC Stool Occult Blood NEGATIVE (NEGATIVE) 11/20/19 14:06 Stl C. Difficile GDH Ag NEGATIVE (NEGATIVE) 11/20/19 13:51 Stl C.difficile Tox A&B NEGATIVE (NEGATIVE) 11/20/19 13:51 Urine Opiates Screen NEGATIVE 11/20/19 13:51 Urine Methadone Screen NEGATIVE 11/20/19 13:51 Ur Barbiturates Screen NEGATIVE 11/20/19 13:51 Ur Phencyclidine Scrn NEGATIVE 11/20/19 13:51 Ur Amphetamines Screen NEGATIVE 11/20/19 13:51 U Benzodiazepines Scrn NEGATIVE 11/20/19 13:51 Urine Cocaine Screen NEGATIVE 11/20/19 13:51 U Marijuana (THC) Screen UNCONFIRMED POSITIVE 11/20/19 13:51 Serum Alcohol < 10 mg/dL (NONE DETECTED) 11/20/19 23:06 11/20/19 14:09 Troponin I < 0.012 Impressions: Abdomen/Pelvis CT 11/20/19 00:00 IMPRESSION: 1. Atrophic left kidney unchanged from prior. There is a striated appearance of the nephrogram, which may be secondary to chronic atrophy, however pyelonephritis is not excluded. There is no surrounding perinephric inflammatory change or fluid. No hydronephrosis. Clinical correlation and correlation with urinalysis recommended. 2. Moderate hepatic steatosis. Chest X-Ray 11/20/19 12:44 IMPRESSION: NO SIGNIFICANT RADIOGRAPHIC FINDING IN THE CHEST. Plan Plan of Treatment: Patient is discharged home in stable condition. She is advised to follow-up with her primary care provider within 1 week. Strongly recommend GI follow-up for consideration of EGD/Colonoscopy. She is instructed take her medications as prescribed. She is educated on the importance of following a cardiac and consistent carb diet. She had opportunity meet with the registered dietitian and community health educator prior to her discharge. She is advised to discontinue smoking and recreational drug use. She is instructed to return to emergency department as needed for concerning symptoms. Time Spent: Greater than 30 Minutes Stroke Is this a Stroke Patient?: No Acute Heart Failure - Is this a Heart Failure Patient?: No
[2019-11-23] MEDS ORDERED: INSULIN GLARGINE,HUM.REC.ANLOG 1,000 UNIT/10 ML VIAL SUBCUT SCH (22:00)
== END 2019-11-23 16:20 | disposition home or self-care (01) | DRG 637 ==
LOC: ER 12:36 → EH 18:40 → 3S 20:13
PROVIDERS: ADMIT Hospitalist; ATTEND Registered Nurse
DX: E11.00 Type 2 diabetes mellitus with hyperosmolarity without nonketotic hyperglycemic-hyperosmolar coma (NKHHC) (principal); G93.41 Metabolic encephalopathy; K92.0 Hematemesis; N30.01 Acute cystitis with hematuria; N17.9 Acute kidney failure, unspecified; I16.1 Hypertensive emergency; E11.65 Type 2 diabetes mellitus with hyperglycemia; F12.20 Cannabis dependence, uncomplicated; D64.9 Anemia, unspecified; R80.9 Proteinuria, unspecified; R10.84 Generalized abdominal pain; R19.7 Diarrhea, unspecified; K76.0 Fatty (change of) liver, not elsewhere classified; I12.9 Hypertensive chronic kidney disease with stage 1 through stage 4 chronic kidney disease, or unspecified chronic kidney disease; E11.22 Type 2 diabetes mellitus with diabetic chronic kidney disease; N18.3 Chronic kidney disease, stage 3 (moderate); F17.210 Nicotine dependence, cigarettes, uncomplicated; Z79.4 Long term (current) use of insulin; Z88.0 Allergy status to penicillin; Z88.2 Allergy status to sulfonamides; Z79.1 Long term (current) use of non-steroidal anti-inflammatories (NSAID); Z91.14 Patient's other noncompliance with medication regimen
CPT/HCPCS: 36415; 36600; 51701; 71045; 74177; 80048; 80053; 80307; 81001; 82270; 82271; 82570; 82607; 82728; 82746; 82803; 82962; 83036; 83540; 83550; 83605; 83690; 83735; 83970; 84100; 84156; 84484; 84703; 85025; 85045; 85610; 87040; 87045; 87086; 87088; 87205; 87324; 87449; 93005; 93010; 99285; C9113; J0360; J0696; J1200; J1439; J1815; J2270; J2405; J2550; J2765; J3490; J7030; J7050; J7120

== ENCOUNTER 2020-03-28 03:49 | Emergency (ER) | payer MEDICARE ==
[2020-03-28] MEDS ORDERED: NORMAL SALINE 1000 ML 1,000 ML IV ONE (07:04)
[2020-03-28] MEDS ORDERED: ONDANSETRON HCL INJ/PF 4 MG/2 ML SDV IV ONE (07:04)
--- NOTE | 2020-03-28 07:09 | ER Document Report ---
ED General - General Chief Complaint: High Blood Sugar Stated Complaint: DIARRHEA, NAUSEA Time Seen by Provider: 03/28/20 06:21 Primary Care Provider: LYLE WALLER DO [Primary Care Provider] - Follow up as needed TRAVEL OUTSIDE OF THE [place] IN LAST 30 DAYS: No - HPI Notes: Chief complaint: Vomiting and high blood sugar HPI: 49-year-old female with history of diabetes mellitus type 1 on insulin poorly compliant follow-up with Dr. Waller now presents with several episodes of vomiting overnight and said her sugar was low down in the 60s. She apparently drank some orange juice because she was feeling weak and sweaty. She stuck her finger again and is over 200. She still feels nauseated and is come in for further evaluation. Mild abdominal cramping. No severe abdominal pain. - Related Data Allergies/Adverse Reactions: Penicillins Allergy (Severe, Verified 02/11/18 14:08) SOB, ITCHING Sulfa (Sulfonamide Antibiotics) Allergy (Severe, Verified 02/11/18 14:08) SOB, ITCHING hydromorphone HCl [From Dilaudid] Allergy (Intermediate, Verified 02/11/18 14:08) ITCHING Home Medications: amilodipine, metoprolol, humalog, 75/25 insulin, asa, kcl Past Medical History - General Information source: Patient, H Records - Social History Smoking Status: Current Every Day Smoker Frequency of alcohol use: Occasional Drug Abuse: Marijuana Family History: DM - Past Medical History Cardiac Medical History: Reports: Hx Hypertension - MEDICATED Denies: Hx Heart Attack Pulmonary Medical History: Reports: Hx Asthma - DOES NOT USE INHALERS Denies: Hx Tuberculosis Neurological Medical History: Denies: Hx Cerebrovascular Accident, Hx Seizures Endocrine Medical History: Reports: Hx Diabetes Mellitus Type 1, Hx Diabetes Mellitus Type 2 Renal/ Medical History: Denies: Hx Peritoneal Dialysis GI Medical History: Reports: Hx Gastroesophageal Reflux Disease, Hx Pancreatitis. Denies: Hx Hepatitis, Hx Hiatal Hernia, Hx Ulcer Musculoskeletal Medical History: Reports Hx Arthritis, Reports Hx Musculoskeletal Deformity, Reports Hx Musculoskeletal Trauma Psychiatric Medical History: Reports: Hx Depression Traumatic Medical History: Reports: Hx Fractures Infectious Medical History: Denies: Hx Hepatitis Past Surgical History: Reports: Hx Abdominal Surgery - For pancreatic cyst in 2 005, Hx Section, Hx Orthopedic Surgery - left leg surgery. Denies: Hx Appendectomy, Hx Bowel Surgery, Hx Cholecystectomy, Hx Coronary Artery Bypass Graft, Hx Gastric Bypass Surgery, Hx Herniorrhaphy, Hx Hysterectomy, Hx Mastectomy, Hx Open Heart Surgery, Hx Pacemaker, Hx Tonsillectomy, Hx Tubal Ligation - Immunizations Immunizations up to date: Yes Hx Diphtheria, Pertussis, Tetanus Vaccination: Yes Hx Pneumococcal Vaccination: 07/20/10 Review of Systems - Review of Systems Notes: Constitutional: Negative for fever. HENT: Negative for sore throat. Eyes: Negative for visual changes. Cardiovascular: Negative for chest pain. Respiratory: Negative for shortness of breath. Gastrointestinal: As per HPI. Genitourinary: Negative for dysuria. Musculoskeletal: Negative for back pain. Skin: Negative for rash. Neurological: Negative for headaches, focal weakness or numbness. 10 point ROS negative except as marked above and in HPI. Physical Exam - Vital signs Vitals: Temp Pulse Resp BP Pulse Ox 97.6 F 72 18 156/91 H 100 03/28/20 03:58 03/28/20 03:58 03/28/20 03:58 03/28/20 03:58 03/28/20 03:58 - Notes Notes: GENERAL: Middle-age female appearing in no acute distress. SKIN: Good turgor no rashes. HEAD: Normocephalic atraumatic. EYES: PERRLA. EOMI. Conjunctivae and sclerae clear. EARS: CANALS AND TMS CLEAR. NOSE: CLEAR. MOUTH: Moist mucosa. Good dentition. No stridor or edema. No drooling. NECK: Supple. No masses or thyromegaly. No adenopathy. Carotids 2+ without bruits. No JVD. BACK: Symmetrical without tenderness. CHEST: Respirations unlabored. Breath sounds clear and symmetrical. HEART: Regular rhythm. No murmur gallop or rub. ABDOMEN: Mild epigastric tenderness. Soft without masses, organomegaly or rebound. Bowel sounds normally active. No bruits. GENITALIA: Deferred. EXTREMITIES: No edema. No calf tenderness. Cap refill less than 1.5 seconds. Dorsalis pedis and posterior tibial pulses 3+ and symmetrical. NEUROLOGICAL: GCS 15. Alert and oriented x3. Normal gait. Fluent speech. Cranial nerves II through XII intact. Sensorimotor and cerebellar normal. Normal tone. PSYCHIATRIC: Appropriate affect. Course - Re-evaluation Re-evalutation: 03/28/20 12:11 Patient's blood sugars around 300 here now. She is not in DKA. She is gotten some hydration with normal saline. Looks like she may have a mild urinary tract infection. Remainder of her studies are unremarkable. Further discussion reveals that this lady was under the care of pain management previously but has moved and no longer has access to her pain management doctor. She says she has an appointment with her family doctor but is out of her pain medication was previously taking Percocet. I gave her 2 Percocet 5 tablets here. I will give her a prescription for 6 tablets and told her that any further narcotic pain medicines would need to be prescribed by pain management clinic or her primary care physician. Findings, clinical impression and plan of treatment have been discussed with patient/family. Understanding of current findings and recommendations has been acknowledged by them and there is agreement regarding disposition and follow-up. - Vital Signs Vital signs: Temp Pulse Resp BP Pulse Ox 98.0 F 70 17 142/82 H 98 03/28/20 11:47 03/28/20 11:47 03/28/20 11:47 03/28/20 11:47 03/28/20 11:47 - Laboratory Result Diagrams: 03/28/20 07:10 03/28/20 07:10 Laboratory results interpreted by me: 03/28/20 03/28/20 03/28/20 04:10 07:10 07:10 RBC 3.49 L Hgb 11.0 L Hct 32.1 L RDW 14.2 H Plt Count 132 L Eos % (Auto) 6.7 H VBG pH Sodium 134.4 L Potassium 5.7 H BUN 36 H Creatinine 1.40 H Est GFR ( Amer) 48 L Est GFR (MDRD) Non-Af 40 L Glucose 308 H POC Glucose 285 H AST 39 H Alkaline Phosphatase 171 H Total Protein 5.7 L Albumin 3.0 L Urine Protein Urine Glucose (UA) 03/28/20 03/28/20 09:35 10:09 RBC Hgb Hct RDW Plt Count Eos % (Auto) VBG pH 7.29 L Sodium Potassium BUN Creatinine Est GFR ( Amer) Est GFR (MDRD) Non-Af Glucose POC Glucose AST Alkaline Phosphatase Total Protein Albumin Urine Protein 100 H Urine Glucose (UA) >=500 H Discharge - Discharge Clinical Impression: Urinary tract infection, Diabetes mellitus, Chronic pain syndrome Condition: Stable Disposition: HOME, SELF-CARE Additional Instructions: Urinary Tract Infection Your evaluation indicates that you have a urinary tract infection. This is due to germs growing in the bladder. This is a common problem. This infection usually responds quickly to antibiotics. Your antibiotic should be taken exactly as prescribed. Drink plenty of fluids -- three to four quarts a day. Occasionally, a bladder anesthetic will be prescribed to help stop the feeling of urgency until the antibiotic has a chance to clear the infection. This may cause your urine to be dark orange. Certain urine infections require a culture. If the doctor obtained a culture, the results will be back in two days. You should call to see if a change in treatment is needed. A repeat urinalysis after you finish treatment is often recommended. The physician will let you know if further testing is required. Call the doctor if you develop fever, chills, flank pain, inability to urinate, or blood in the urine. Chronic Pain Control Stress, inactivity, and depression make pain more severe regardless of the cause of the pain. Stress and poor physical condition can cause pain such as headaches and backache. Relaxation: Rest in a quiet place with your eyes closed for 20 minutes twice daily. Concentrate on a pleasant image, or simply "feel" your breathing. Clear your mind. Stress management: Deal with your "stressors." Either take action, or eliminate the stressor from your life. Don't let things hang over you. Accept those things you can't change. Nutrition: Eat small, balanced meals -- don't skip, don't overeat. Meals should be high-carbohydrate, low-sugar, low-fat. Exercise: Exercise helps painful conditions and eases stress. Get 30 minutes of moderate exercise, five days a week. Do an activity that does not flare your pain. Precautions: Pain which continues to disrupt daily activities, or which changes in nature, requires a medical evaluation. Pain Clinic referral is available. We do not manage chronic pain in the Emergency Department. We will try to appropriately help you through an acute flare of your chronic painful condition, but for on-going chronic pain that does not improve, you will need to see your private doctor or painter maintenance. We do not provide repeated medication management of chronic painful conditions. If you wish, we can provide the name of local pain management physicians. See your primary care doctor soon as possible for follow-up. Return here as needed for new or worsening symptoms: Pain that is worsening or unimproved Uncontrolled vomiting High fever or shaking chills Overall worsening Prescriptions: Tramadol HCl [Ultram 50 mg Tablet] 50 mg PO Q4HP PRN #12 tab PRN Reason: Nitrofurantoin Monohyd/M-Cryst [Macrobid 100 mg Capsule] 100 mg PO BID 3 Days #6 cap Referrals: LYLE WALLER DO [Primary Care Provider] - Follow up as needed
[2020-03-28 07:24] LABS: ABSOLUTE EOSINOPHILS # (AUTO) 0.4 10^3/uL (0.0-0.6); ABSOLUTE LYMPHOCYTES (AUTO) 1.4 10^3/uL (0.5-4.7); ABSOLUTE MONOCYTES (AUTO) 0.4 10^3/uL (0.1-1.4); ABSOLUTE NEUT (AUTO) 3.1 10^3/uL (1.7-8.2); BASOPHILS % (AUTO) 0.5 % (0-2); EOSINOPHILS % (AUTO) 6.7 % (0-6); HEMATOCRIT 32.1 % (36.0-47.0); LYMPHOCYTES % (AUTO) 25.7 % (13-45); MEAN CORPUSCULAR HEMOGLOBIN 31.5 pg (27.0-33.4); MEAN CORPUSCULAR HGB CONC 34.1 g/dL (32.0-36.0); MEAN CORPUSCULAR VOLUME 92 fl (80-97); MONOCYTES % (AUTO) 7.5 % (3-13); PLATELET COUNT 132 10^3/uL (150-450); RED BLOOD COUNT 3.49 10^6/uL (3.72-5.28); RED CELL DISTRIBUTION WIDTH 14.2 % (11.5-14.0); SEGMENTED NEUTROPHILS % (AUTO) 59.6 % (42-78); TOTAL CELLS COUNTED % (AUTO) 100 %; WHITE BLOOD COUNT 5.3 10^3/uL (4.0-10.5)
[2020-03-28 07:40] LABS: ALKALINE PHOSPHATASE 171 U/L (38-126); ASPARTATE AMINO TRANSFERASE 39 U/L (14-36); BILIRUBIN,DIRECT 0.3 mg/dL (0.0-0.4); BILIRUBIN,TOTAL 0.4 mg/dL (0.2-1.3); BLOOD UREA NITROGEN 36 mg/dL (7-20); CALCIUM 8.8 mg/dL (8.4-10.2); CHLORIDE 105 mmol/L (98-107); GLUCOSE 308 mg/dL (75-110); POTASSIUM 5.7 mmol/L (3.6-5.0); TOTAL PROTEIN 5.7 g/dL (6.3-8.2)
[2020-03-28 07:45] LABS: ANION GAP 5 (5-19); CARBON DIOXIDE 24 mmol/L (22-30)
--- NOTE | 2020-03-28 09:44 | EKG REPORT ---
SEVERITY:- ABNORMAL ECG - SINUS RHYTHM RIGHT AXIS DEVIATION NONSPECIFIC T ABNORMALITIES, LATERAL LEADS : Confirmed by: Wally Myles MD 28-Mar-2020 09:43:55
[2020-03-28 10:06] LABS: URINE AMPHETAMINES SCREEN NEGATIVE; URINE BARBITURATES SCREEN NEGATIVE; URINE BENZODIAZEPINES SCREEN NEGATIVE; URINE COCAINE SCREEN NEGATIVE; URINE METHADONE SCREEN NEGATIVE; URINE PHENCYCLIDINE SCREEN NEGATIVE
[2020-03-28 10:13] LABS: URINE MARIJUANA (THC) SCREEN UNCONFIRMED POSITIVE
[2020-03-28 10:30] LABS: APPEARANCE,URINE SLIGHTLY-CLOUDY; BILIRUBIN,URINE NEGATIVE (NEGATIVE); COLOR,URINE YELLOW; GLUCOSE, URINE >=500 mg/dL (NEGATIVE); KETONES,URINE NEGATIVE (NEGATIVE); LEUKOCYTE ESTERASE,URINE NEGATIVE (NEGATIVE); NITRITE,URINE NEGATIVE (NEGATIVE); PROTEIN,URINE 100 mg/dL (NEGATIVE); URINE SPECIFIC GRAVITY 1.008; UROBILINOGEN,URINE NEGATIVE mg/dL (<2.0)
[2020-03-28 10:38] LABS: VENOUS BLOOD BASE EXCESS -3.8 mmol/L; VENOUS BLOOD PCO2 48.7 mmHg (35-63); VENOUS BLOOD PH 7.29 (7.30-7.42)
[2020-03-28] MEDS ORDERED: OXYCODONE-ACETAMINOPHEN 5-325 MG TABLET PO ONE (10:53)
[2020-03-28 11:48] VITALS: BP 142/82
== END 2020-03-28 12:51 | disposition home or self-care (01) ==
LOC: ER 03:49
DX: N39.0 Urinary tract infection, site not specified (principal); E10.65 Type 1 diabetes mellitus with hyperglycemia; G89.4 Chronic pain syndrome; R11.10 Vomiting, unspecified; R53.1 Weakness; R61 Generalized hyperhidrosis; Z79.899 Other long term (current) drug therapy; F17.200 Nicotine dependence, unspecified, uncomplicated; I10 Essential (primary) hypertension; J45.909 Unspecified asthma, uncomplicated; Z88.0 Allergy status to penicillin; Z88.2 Allergy status to sulfonamides; Z88.8 Allergy status to other drugs, medicaments and biological substances
CPT/HCPCS: 93005; 99284; 96361; 96374; 36415; 82962; 85025; 80053; 81001; 84484; 80307; 82803; 93010; A9270; J2405; J7030

== ENCOUNTER 2020-07-07 04:18 | Inpatient (IN) | payer MEDICARE ==
[2020-07-07 05:41] LABS: ABSOLUTE EOSINOPHILS # (AUTO) 0.2 10^3/uL (0.0-0.6); ABSOLUTE LYMPHOCYTES (AUTO) 1.3 10^3/uL (0.5-4.7); ABSOLUTE MONOCYTES (AUTO) 0.4 10^3/uL (0.1-1.4); ABSOLUTE NEUT (AUTO) 3.7 10^3/uL (1.7-8.2); BASOPHILS % (AUTO) 0.5 % (0-2); EOSINOPHILS % (AUTO) 3.6 % (0-6); HEMATOCRIT 37.9 % (36.0-47.0); HEMOGLOBIN 12.6 g/dL (12.0-15.5); LYMPHOCYTES % (AUTO) 22.7 % (13-45); MEAN CORPUSCULAR HEMOGLOBIN 30.5 pg (27.0-33.4); MEAN CORPUSCULAR HGB CONC 33.3 g/dL (32.0-36.0); MEAN CORPUSCULAR VOLUME 92 fl (80-97); PLATELET COUNT 156 10^3/uL (150-450); RED BLOOD COUNT 4.13 10^6/uL (3.72-5.28); RED CELL DISTRIBUTION WIDTH 14.3 % (11.5-14.0); SEGMENTED NEUTROPHILS % (AUTO) 66.2 % (42-78); TOTAL CELLS COUNTED % (AUTO) 100 %; WHITE BLOOD COUNT 5.6 10^3/uL (4.0-10.5)
[2020-07-07 06:03] LABS: ALBUMIN 3.4 g/dL (3.5-5.0); ALKALINE PHOSPHATASE 164 U/L (38-126); ANION GAP 7 (5-19); ASPARTATE AMINO TRANSFERASE 30 U/L (14-36); BILIRUBIN,DIRECT 0.2 mg/dL (0.0-0.4); BILIRUBIN,TOTAL 0.3 mg/dL (0.2-1.3); BLOOD UREA NITROGEN 46 mg/dL (7-20); CALCIUM 9.1 mg/dL (8.4-10.2); CARBON DIOXIDE 28 mmol/L (22-30); CHLORIDE 101 mmol/L (98-107); GLUCOSE 140 mg/dL (75-110); POTASSIUM 4.5 mmol/L (3.6-5.0); TOTAL PROTEIN 6.6 g/dL (6.3-8.2)
[2020-07-07 09:20] LABS: APPEARANCE,URINE CLOUDY; BILIRUBIN,URINE NEGATIVE (NEGATIVE); COLOR,URINE YELLOW; GLUCOSE, URINE 50 mg/dL (NEGATIVE); KETONES,URINE NEGATIVE (NEGATIVE); LEUKOCYTE ESTERASE,URINE MODERATE (NEGATIVE); NITRITE,URINE NEGATIVE (NEGATIVE); PROTEIN,URINE >=500 mg/dL (NEGATIVE); URINE SPECIFIC GRAVITY 1.009; UROBILINOGEN,URINE NEGATIVE mg/dL (<2.0)
[2020-07-07] MEDS ORDERED: LEVOFLOXACIN 750 MG/D5W RTU 750 MG/150 ML RTUPB IV ONE (10:25)
[2020-07-07] MEDS ORDERED: PROCHLORPERAZINE EDISYLATE INJ 10 MG/2 ML VIAL IV ONE (10:26)
[2020-07-07] MEDS ORDERED: FENTANYL CITRATE INJ/PF 100 MCG/2 ML AMPUL IV ONE (10:26)
[2020-07-07 11:17] LABS: URINE AMPHETAMINES SCREEN NEGATIVE; URINE BARBITURATES SCREEN NEGATIVE; URINE BENZODIAZEPINES SCREEN NEGATIVE; URINE COCAINE SCREEN NEGATIVE; URINE METHADONE SCREEN NEGATIVE; URINE PHENCYCLIDINE SCREEN NEGATIVE
[2020-07-07 11:19] LABS: URINE MARIJUANA (THC) SCREEN UNCONFIRMED POSITIVE
--- NOTE | 2020-07-07 11:28 | RADIOLOGY REPORT (SQ) ---
EXAM DESCRIPTION: CT ABD/PELVIS NO ORAL OR IV<Procedure Description>CT ABD/PELVIS NO ORAL OR IV IMAGES COMPLETED DATE/TIME: 07/07/2020 11:06 am<Completed Time>07/07/2020 11:06 am REASON FOR STUDY: LUQ pain<Reason For Exam>LUQ pain <ICD10 Code1> <ICD10 Code2> <ICD10 Code3> <ADM DX> COMPARISON: 08/16/2017 TECHNIQUE: CT scan of the abdomen and pelvis performed without intravenous or oral contrast. Images reviewed with lung, soft tissue, and bone windows. Reconstructed coronal and sagittal MPR images revi ewed. All images stored on PACS. All CT scanners at this facility use dose modulation, iterative reconstruction, and/or weight based d osing when appropriate to reduce radiation dose to as low as reasonably achievable (ALARA). [facility]: Dose Right [facility]: CareDose [facility]: Dose Right [facility]: Teradose 4D [facility]: [employer] RADIATION DOSE: CT Rad equipment meets quality standard of care and radiation dose reduction techniq ues were employed. CTDIvol: 3.6 mGy. DLP: 167 mGy-cm.<RADIATION DOSE>CT Rad equipment meets quality s tandard of care and radiation dose reduction techniques were employed. CTDIvol: 3.6 mGy. DLP: 167 mGy -cm.<[facility] mGy>mGy. LIMITATIONS: None. FINDINGS: LOWER CHEST: No acute findings. NON-CONTRASTED LIVER, SPLEEN, ADRENALS: Evaluation limited by lack of IV contrast. No identified sign ificant masses identified. PANCREAS: Pancreatic calcifications are present in the distal body-tail similar to the prior exam. S imilar appearance of the pancreatic head neck region in crowding of upper retroperitoneal structures, limited evaluation without contrast. GALLBLADDER: No calcified stones. No inflammatory changes to suggest cholecystitis. RIGHT KIDNEY AND URETER: No cysts identified. No calcified stones. No hydronephrosis or hydroureter. LEFT KIDNEY AND URETER: Atrophic. No calcified stones. No hydronephrosis or hydroureter. AORTA AND RETROPERITONEUM: No aneurysm. No retroperitoneal masses or adenopathy. BOWEL AND PERITONEAL CAVITY: No obvious masses or inflammatory changes. No free fluid. APPENDIX: Normal. PELVIS, BLADDER, AND ABDOMINAL WALL:No free fluid. Air-fluid level in the bladder, correlate for rec ent catheterization, exclude infection clinically. BONES: No acute findings. OTHER: No other significant finding. IMPRESSION: Air-fluid level in the bladder, correlate for recent catheterization, exclude infection clinically. No other acute findings identified. TECHNICAL DOCUMENTATION: JOB ID: [id number]<Job ID>[id number] Quality ID # [id number]: Final reports with documentation of one or more dose reduction techniques (e.g., Au tomated exposure control, adjustment of the mA and/or kV according to patient size, use of iterative reconstruction technique) 2010 [employer] All Rights Reserved Reading location - IP/workstation name: [email or web address]
[2020-07-07] MEDS ORDERED: LABETALOL HCL INJ 20 MG/4 ML DISP.SYRIN IV ONE (12:00)
--- NOTE | 2020-07-07 12:36 | ER Document Report ---
ED General - General Chief Complaint: Abdominal Pain Stated Complaint: WEAKNESS Time Seen by Provider: 07/07/20 09:21 Primary Care Provider: LYLE WALLER DO [Primary Care Provider] - Follow up as needed TRAVEL OUTSIDE OF THE [place] IN LAST 30 DAYS: No - HPI Notes: Chief complaint: Vomiting, abdominal pain and low blood sugar HPI: 49-year-old female with history of diabetes mellitus type 1 on insulin poorly compliant follow-up with Dr. Waller now presents with several episodes of vomiting overnight and said her sugar was low down in the 60s. She apparently drank some orange juice because she was feeling weak and sweaty. She stuck her finger again and is over 200. She still feels nauseated and is come in for further evaluation. Mild abdominal cramping. History of chronic/recurrent pancreatitis. Patient admits that she drank some wine at a birthday [employer] several days ago. Home Medications: amilodipine, metoprolol, humalog, 75/25 insulin, asa, kcl Smoking Status: Current Every Day Smoker Frequency of alcohol use: Occasional Drug Abuse: Marijuana - Related Data Allergies/Adverse Reactions: Penicillins Allergy (Severe, Verified 07/07/20 04:47) SOB, ITCHING Sulfa (Sulfonamide Antibiotics) Allergy (Severe, Verified 07/07/20 04:47) SOB, ITCHING hydromorphone HCl [From Dilaudid] Allergy (Intermediate, Verified 07/07/20 04:47) ITCHING Past Medical History - General Information source: Patient, [facility] Records - Social History Smoking Status: Current Every Day Smoker Frequency of alcohol use: Occasional Drug Abuse: Marijuana Family History: DM Patient has homicidal ideation: No - Past Medical History Cardiac Medical History: Reports: Hx Hypertension - MEDICATED Denies: Hx Heart Attack Pulmonary Medical History: Reports: Hx Asthma - DOES NOT USE INHALERS Denies: Hx Tuberculosis Neurological Medical History: Denies: Hx Cerebrovascular Accident, Hx Seizures Endocrine Medical History: Reports: Hx Diabetes Mellitus Type 1, Hx Diabetes Mellitus Type 2 Renal/ Medical History: Denies: Hx Peritoneal Dialysis GI Medical History: Reports: Hx Gastroesophageal Reflux Disease, Hx Pancreatitis. Denies: Hx Hepatitis, Hx Hiatal Hernia, Hx Ulcer Musculoskeletal Medical History: Reports Hx Arthritis, Reports Hx Musculoskeletal Deformity, Reports Hx Musculoskeletal Trauma Psychiatric Medical History: Reports: Hx Depression Traumatic Medical History: Reports: Hx Fractures Infectious Medical History: Denies: Hx Hepatitis Past Surgical History: Reports: Hx Abdominal Surgery - For pancreatic cyst in 2004, Hx Section, Hx Orthopedic Surgery - left leg surgery. Denies: Hx Appendectomy, Hx Bowel Surgery, Hx Cholecystectomy, Hx Coronary Artery Bypass Graft, Hx Gastric Bypass Surgery, Hx Herniorrhaphy, Hx Hysterectomy, Hx Mastectomy, Hx Open Heart Surgery, Hx Pacemaker, Hx Tonsillectomy, Hx Tubal Ligation - Immunizations Immunizations up to date: Yes Hx Diphtheria, Pertussis, Tetanus Vaccination: Yes Hx Pneumococcal Vaccination: 07/20/10 Review of Systems - Review of Systems Notes: Review of Systems Constitutional: Negative for fever. HENT: Negative for sore throat. Eyes: Negative for visual changes. Cardiovascular: Negative for chest pain. Respiratory: Negative for shortness of breath. Gastrointestinal: As per HPI. Genitourinary: Negative for dysuria. Musculoskeletal: Negative for back pain. Skin: Negative for rash. Neurological: Negative for headaches, focal weakness or numbness. 10 point ROS negative except as marked above and in HPI. Physical Exam - Vital signs Vitals: Pulse Resp BP Pulse Ox 91 18 200/117 H 99 07/07/20 04:40 07/07/20 04:40 07/07/20 04:40 07/07/20 04:40 - Notes Notes: GENERAL: Slender middle-age female in moderate discomfort with tenderness left upper quadrant on deep palpation. SKIN: Good turgor no rashes. HEAD: Normocephalic atraumatic. EYES: PERRLA. EOMI. Conjunctivae and sclerae clear. EARS: CANALS AND TMS CLEAR. NOSE: CLEAR. MOUTH: Moist mucosa. Good dentition. No stridor or edema. No drooling. NECK: Supple. No masses or thyromegaly. No adenopathy. Carotids 2+ without bruits. No JVD. BACK: Mild left CVA tenderness. CHEST: Respirations unlabored. Breath sounds clear and symmetrical. HEART: Regular rhythm. No murmur gallop or rub. ABDOMEN: Soft nontender without masses, organomegaly or rebound. Bowel sounds normally active. No bruits. GENITALIA: Deferred. EXTREMITIES: No edema. No calf tenderness. Cap refill less than 1.5 seconds. Dorsalis pedis and posterior tibial pulses 3+ and symmetrical. NEUROLOGICAL: GCS 15. Alert and oriented x3. Fluent speech. Cranial nerves II through XII intact. Sensorimotor and cerebellar normal. Normal tone. PSYCHIATRIC: Anxious affect. Course - Vital Signs Vital signs: Temp Pulse Resp BP Pulse Ox 97.8 F 91 16 122/95 H 100 07/07/20 10:44 07/07/20 13:31 07/07/20 13:31 07/07/20 13:31 07/07/20 13:31 - Laboratory Results Result Diagrams: 07/07/20 05:01 07/07/20 05:01 Laboratory Results Interpreted: 07/07/20 07/07/20 07/07/20 04:51 05:01 05:01 RDW 14.3 H Sodium 135.8 L BUN 46 H Creatinine 2.55 H Est GFR ( Amer) 24 L Est GFR (MDRD) Non-Af 20 L Glucose 140 H POC Glucose 130 H Alkaline Phosphatase 164 H Albumin 3.4 L Urine Protein Urine Glucose (UA) Urine Blood Ur Leukocyte Esterase 07/07/20 07/07/20 06:16 08:30 RDW Sodium BUN Creatinine Est GFR ( Amer) Est GFR (MDRD) Non-Af Glucose POC Glucose 166 H Alkaline Phosphatase Albumin Urine Protein >=500 H Urine Glucose (UA) 50 H Urine Blood SMALL H Ur Leukocyte Esterase MODERATE H Critical Laboratory Results Reviewed: Yes Attending or Supervising Physician who Reviewed Labs: LYLE ARNOLD - Radiology Results Radiology Results Interpreted: 07/07/20 12:37 Abdomen/Pelvis CT 07/07/20 10:20 IMPRESSION: Air-fluid level in the bladder, correlate for recent catheterization, exclude infection clinically. No other acute findings identified. Critical Radiology Results Reviewed: Yes Attending or Supervising Physician who Reviewed Radiology: LYLE ARNOLD Discharge - Discharge Clinical Impression: Acute pyelonephritis, Acute kidney injury, Dehydration Disposition: ADMITTED INPATIENT Unit Admitted: Medical Floor Referrals: LYLE WALLER DO [Primary Care Provider] - Follow up as needed
[2020-07-07] MEDS ORDERED: DEXTROSE 50%-WATER 25 GM/50 ML DISP.SYRIN IV PRN ×2 (14:46)
[2020-07-07] MEDS ORDERED: GLUCAGON,HUMAN RECOMB 1 MG INJ IM PRN (14:46)
[2020-07-07] MEDS ORDERED: DEXTROSE 40% GEL 15 GM TUBE PO PRN ×2 (14:46)
[2020-07-07] MEDS ORDERED: ONDANSETRON HCL INJ/PF 4 MG/2 ML SDV IV PRN (14:59)
--- NOTE | 2020-07-07 15:35 | PDOC H&P ---
History of Present Illness Admission Date/PCP: LYLE ROBERSON DO History of Present Illness: DEEPTHI MARQUEZ is a 49 year old female with a history of insulin-dependent diabetes mellitus and hypertension who presents with nausea, vomiting, and diarrhea x1 day. She says she started feeling bad yesterday, and it reminded her of when she gets sick from her blood sugar being uncontrolled. She states she checked her blood sugar and it was almost 300 so she took a fairly large dose of insulin. She said that made her feel worse and she felt like she does when her blood sugar was too low. She said she checked it again and it was around 60. She ate some candy to try to make her blood sugar come up and make the bad feeling go away but it did not work. At this point she called EMS. She has a history of chronic pancreatitis but said her belly pain is about the same as it always is and has not really changed very much. She has not had any dysuria. She got some fluids and some nausea medicine in the ER and was feeling better. She has not had any diarrhea or vomiting here. Her labs showed an acute worsening of her stage III chronic kidney disease. Her BUN was elevated. There were only 21 white blood cells in her urine but she was given some antibiotics for urinary tract infection. CT of her belly was fairly unremarkable but it did show some air in her bladder. She said that she urinated in a cup and was not straight cath. She has not noticed anything out of the ordinary with her urine. She has not had any recent instrumentation on her bladder. She said her last surgical procedure was a surgery on a cyst on her pancreas in 2008. Past Medical History Cardiac Medical History: Reports: Hypertension - MEDICATED Denies: Myocardial Infarction Pulmonary Medical History: Reports: Asthma - DOES NOT USE INHALERS Denies: Tuberculosis Neurological Medical History: Denies: Seizures Endocrine Medical History: Reports: Diabetes Mellitus Type 1, Diabetes Mellitus Type 2 GI Medical History: Reports: Gastroesophageal Reflux Disease Denies: Hepatitis, Hiatal Hernia Musculoskeltal Medical History: Reports: Arthritis Psychiatric Medical History: Reports: Depression Hematology: Denies: Anemia, Sickle Cell Disease Past Surgical History Past Surgical History: Reports: Section, Orthopedic Surgery - left leg surgery Denies: Amputation, Appendectomy, Cholecystectomy, Coronary Artery Bypass Gr aft, Gastric Bypass Surgery, Herniorrhaphy, Hysterectomy, Mastectomy, Pacemaker, Tonsillectomy, Tubal Ligation Social History Smoking Status: Current Every Day Smoker Frequency of Alcohol Use: Occasional Hx Recreational Drug Use: Yes Drugs: Marijuana Hx Prescription Drug Abuse: No Family History Family History: DM Parental Family History Reviewed: Yes Children Family History Reviewed: Yes Sibling(s) Family History Reviewed.: Yes Medication/Allergy Home Medications: Ca/D3/Mag Ox/Zinc/Nuclear Medicine Officer/Avelino/Bor [Calcium 600-D3 Plus Caplet] 1 tab PO DAILY 11/21/19 Docusate Sodium [Colace 100 mg Capsule] 100 mg PO DAILYP PRN 11/21/19 Folic Acid 0.4 mg PO DAILY 11/21/19 Gabapentin [Neurontin 100 mg Capsule] 100 mg PO DAILY 11/21/19 Omeprazole Magnesium [Prilosec Otc] 20 mg PO Q6AM 11/21/19 Ondansetron [Zofran Odt 4 mg Tablet] 4 mg PO Q8HP PRN 11/21/19 Acetaminophen [Tylenol 325 mg Tablet] 650 mg PO Q4HP PRN tablet 11/23/19 Amlodipine Besylate [Norvasc 10 mg Tablet] 10 mg PO DAILY #30 11/23/19 Amlodipine Besylate [Norvasc 10 mg Tablet] 10 mg PO DAILY #30 tablet 11/23/19 Insulin Glargine,Hum.rec.anlog [Lantus Insulin 100 Unit/mL Insulin Pen] 12 unit SUBCUT QHS #3 ml 11/23/19 Insulin Lispro [Humalog Kwikpen U-100] 100 unit SQ ACHS #1 insuln.pen 11/23/19 Metoprolol Tartrate [Lopressor 50 mg Tablet] 50 mg PO Q12 #60 tablet 11/23/19 Nicotine [Nicoderm 14 mg/24 Hr Transdermal Patch] 1 each TD DAILY #30 patch.td24 11/23/19 Insulin Lispro [Humalog Kwikpen U-100] 1 - 12 unit SQ ACHS #1 insuln.pen 11/28/19 Nitrofurantoin Monohyd/M-Cryst [Macrobid 100 mg Capsule] 100 mg PO BID 3 Days #6 cap 03/28/20 Tramadol HCl [Ultram 50 mg Tablet] 50 mg PO Q4HP PRN #12 tab 03/28/20 Allergies/Adverse Reactions: Penicillins Allergy (Severe, Verified 07/07/20 04:47) SOB, ITCHING Sulfa (Sulfonamide Antibiotics) Allergy (Severe, Verified 07/07/20 04:47) SOB, ITCHING hydromorphone HCl [From Dilaudid] Allergy (Intermediate, Verified 07/07/20 04:47) ITCHING Review of Systems All systems: reviewed and no additional remarkable complaints except as stated - All systems were reviewed and were negative except as noted in the HPI Physical Exam Vital Signs: Temp Pulse Resp BP Pulse Ox 97.8 F 91 16 122/95 H 100 07/07/20 10:44 07/07/20 13:31 07/07/20 13:31 07/07/20 13:31 07/07/20 13:31 Intake & Output 07/06/20 07/07/20 07/08/20 06:59 06:59 06:59 Intake Total 150 Balance 150 Weight 55.8 kg General appearance: PRESENT: no acute distress, cooperative, disheveled Head exam: PRESENT: atraumatic, normocephalic Eye exam: PRESENT: EOMI, PERRLA. ABSENT: conjunctival injection, nystagmus, scleral icterus Ear exam: PRESENT: normal external ear exam Mouth exam: PRESENT: dry mucosa, neck supple Teeth exam: PRESENT: poor dentation Throat exam: ABSENT: post pharyngeal erythema Neck exam: PRESENT: full ROM. ABSENT: carotid bruit, JVD, lymphadenopathy, meningismus, tenderness, thyromegaly Respiratory exam: PRESENT: clear to auscultation chai, symmetrical, unlabored. ABSENT: accessory muscle use, chest wall tenderness, crackles, prolonged expiratory phas, rhonchi, tachypnea, wheezes Cardiovascular exam: PRESENT: RRR, +S1, +S2 Pulses: PRESENT: normal carotid pulses Vascular exam: PRESENT: normal capillary refill GI/Abdominal exam: PRESENT: normal bowel sounds, soft. ABSENT: distended, gua rding, rebound, tenderness Extremities exam: ABSENT: clubbing, pedal edema Musculoskeletal exam: PRESENT: normal inspection. ABSENT: deformity Neurological exam: PRESENT: awake, oriented to person, oriented to place, oriented to situation, CN II-XII grossly intact. ABSENT: motor sensory deficit Psychiatric exam: PRESENT: flat affect Skin exam: PRESENT: dry, warm Results Laboratory Results: 07/07/20 05:01 07/07/20 05:01 1207/07/20 07/07/20 05:01 05:01 08:30 WBC 5.6 RBC 4.13 Hgb 12.6 Hct 37.9 MCV 92 MCH 30.5 MCHC 33.3 RDW 14.3 H Plt Count 156 Seg Neutrophils % 66.2 Sodium 135.8 L Potassium 4.5 Chloride 101 Carbon Dioxide 28 Anion Gap 7 BUN 46 H Creatinine 2.55 H Est GFR ( Amer) 24 L Glucose 140 H Calcium 9.1 Total Bilirubin 0.3 AST 30 Alkaline Phosphatase 164 H Total Protein 6.6 Albumin 3.4 L Lipase 285.2 Urine Color YELLOW Urine Appearance CLOUDY Urine pH 7.0 Ur Specific [place] 1.009 Urine Protein >=500 H Urine Glucose (UA) 50 H Urine Ketones NEGATIVE Urine Blood SMALL H Urine Nitrite NEGATIVE Ur Leukocyte Esterase MODERATE H Urine WBC (Auto) 21 Urine RBC (Auto) 0 Impressions: Abdomen/Pelvis CT 07/07/20 10:20 IMPRESSION: Air-fluid level in the bladder, correlate for recent catheterization, exclude infection clinically. No other acute findings identified. Assessment and Plan - Diagnosis (1) Acute kidney injury Is this a current diagnosis for this admission?: Yes (2) Dehydration Is this a current diagnosis for this admission?: Yes (3) CKD (chronic kidney disease) stage 3, GFR 30-59 ml/min Qualifiers: Chronic kidney disease stage 3 subtype: stage 3a (GFR 45-59) Qualified Code(s): N18.31 - Chronic kidney disease, stage 3a Is this a current diagnosis for this admission?: Yes (4) Diarrhea Qualifiers: Diarrhea type: unspecified type Qualified Code(s): R19.7 - Diarrhea, unspecified Is this a current diagnosis for this admission?: Yes (5) Intractable vomiting with nausea Is this a current diagnosis for this admission?: Yes - Plan Summary Summary: We will put her on some IV fluids and follow-up her labs. IV Zofran as needed. We will start a clear liquid diet now and advance as tolerated. We will start her out with a as needed sliding scale. When she is eating more we can put her back on her normal home dose of Lantus plus her sliding scale. I do not think she has a urinary tract infection. She is not had any dysuria, and she only had 21 white cells in her urine. I am just going to monitor her for now to see if she develops signs of an infection. 1 thing that was remarkable, however, was the fact that she did have some air in her bladder. The CT did not show any evidence of a fistula with the bowel, but when her nausea has improved I may get a CT with oral contrast to see if she has evidence of contrast moving from the bowel into the bladder. She denied any substantial abdominal pain for me, and in fact told me that she was hungry and wanted to try to eat something. I was given a report that she had some flank pain but I could not elicit any flank pain on examination. - Time Time Spent with patient: 35 or more minutes Anticipated Discharge Disposition: Home, Self Care Anticipated Discharge Timeframe: Unknown - Inpatient Certification Based on my medical assessment, after consideration of the patient's comorbidities, presenting symptoms, or acuity I expect that the services needed warrant INPATIENT care.: Yes I certify that my determination is in accordance with my understanding of Medicare's requirements for reasonable and necessary INPATIENT services [42 CFR 412.3e].: Yes Medical Necessity: Significant Comorbidiites Make Outpatient Treatment Too Risky, Need Close Monitoring Due to Risk of Patient Decompensation, Need For IV Fluids, Need For Continuous Telemetry Monitoring, Risk of Complication if Not Cared For in Hospital
[2020-07-07] MEDS: NORMAL SALINE 1000 ML 1,000 ML IV PRN (16:01)
[2020-07-07] MEDS: INSULIN LISPRO 100 UNIT/ML 3 ML VIAL SUBCUT SCH ×2 (16:24→21:29)
--- NOTE | 2020-07-07 17:26 | EKG REPORT ---
SEVERITY:- ABNORMAL ECG - SINUS RHYTHM PROBABLE LEFT ATRIAL ABNORMALITY NONSPECIFIC T ABNORMALITIES, INFERIOR LEADS BORDERLINE PROLONGED QT INTERVAL : Confirmed by: Eliana Leo MD 07-Jul-2020 17:26:20
[2020-07-07] MEDS ORDERED: AMLODIPINE BESYLATE 10 MG TABLET PO ONE (19:00)
[2020-07-07] MEDS: HEPARIN SOD (PORCINE) 5,000 UNIT/ML 1 ML VIAL SUBCUT SCH (21:35)
[2020-07-08] MEDS: HEPARIN SOD (PORCINE) 5,000 UNIT/ML 1 ML VIAL SUBCUT SCH ×3 (05:19→21:54)
[2020-07-08 05:45] LABS: HEMATOCRIT 34.5 % (36.0-47.0); HEMOGLOBIN 11.8 g/dL (12.0-15.5); MEAN CORPUSCULAR HEMOGLOBIN 30.8 pg (27.0-33.4); MEAN CORPUSCULAR HGB CONC 34.1 g/dL (32.0-36.0); MEAN CORPUSCULAR VOLUME 90 fl (80-97); PLATELET COUNT 132 10^3/uL (150-450); RED BLOOD COUNT 3.82 10^6/uL (3.72-5.28); RED CELL DISTRIBUTION WIDTH 14.1 % (11.5-14.0); WHITE BLOOD COUNT 4.5 10^3/uL (4.0-10.5)
[2020-07-08 06:06] LABS: ALBUMIN 2.7 g/dL (3.5-5.0); ALKALINE PHOSPHATASE 141 U/L (38-126); ANION GAP 5 (5-19); ASPARTATE AMINO TRANSFERASE 22 U/L (14-36); BILIRUBIN,DIRECT 0.1 mg/dL (0.0-0.4); BILIRUBIN,TOTAL 0.4 mg/dL (0.2-1.3); BLOOD UREA NITROGEN 35 mg/dL (7-20); CALCIUM 8.8 mg/dL (8.4-10.2); CARBON DIOXIDE 26 mmol/L (22-30); CHLORIDE 103 mmol/L (98-107); GLUCOSE 216 mg/dL (75-110); POTASSIUM 4.8 mmol/L (3.6-5.0); TOTAL PROTEIN 5.7 g/dL (6.3-8.2)
[2020-07-08] MEDS: INSULIN LISPRO 100 UNIT/ML 3 ML VIAL SUBCUT SCH ×5 (07:36→21:55)
[2020-07-08] MEDS: NORMAL SALINE 1000 ML 1,000 ML IV PRN ×2 (07:38→22:04)
[2020-07-08] MEDS: AMLODIPINE BESYLATE 10 MG TABLET PO SCH (09:38)
--- NOTE | 2020-07-08 15:41 | PDOC PROGRESS REPORT ---
Subjective Date:: 07/08/20 Subjective:: No adverse events overnight. No new complaints. No more nausea. She is asking if her diet can be advanced. I asked her if she had had any pneumaturia and I explained to her what that meant, and she said that she feels like she has been having some for the past few weeks. Reason For Visit: ACUTE ON CHRONIC KIDNEY INJURY Physical Exam Vital Signs: Temp Pulse Resp BP Pulse Ox 98.3 F 83 17 160/84 H 98 07/08/20 12:00 07/08/20 12:00 07/08/20 12:00 07/08/20 12:00 07/08/20 12:00 Intake & Output 07/07/20 07/08/20 07/09/20 06:59 06:59 06:59 Intake Total 1410 660 Output Total 260 Balance 1150 660 Weight 55.8 kg 57.2 kg General appearance: PRESENT: no acute distress, cooperative, disheveled Respiratory exam: PRESENT: clear to auscultation chai, symmetrical, unlabored. ABSENT: accessory muscle use, chest wall tenderness, crackles, prolonged expiratory phas, rhonchi, tachypnea, wheezes Cardiovascular exam: PRESENT: RRR, +S1, +S2 Pulses: PRESENT: normal carotid pulses Vascular exam: PRESENT: normal capillary refill GI/Abdominal exam: PRESENT: normal bowel sounds, soft. ABSENT: distended, guarding, rebound, tenderness Extremities exam: ABSENT: clubbing, pedal edema Musculoskeletal exam: PRESENT: normal inspection. ABSENT: deformity Neurological exam: PRESENT: awake, oriented to person, oriented to place, oriented to situation Psychiatric exam: PRESENT: flat affect Skin exam: PRESENT: dry, warm Results Laboratory Results: 07/08/20 05:18 07/08/20 05:18 07/08/20 07/08/20 05:18 05:18 WBC 4.5 RBC 3.82 Hgb 11.8 L Hct 34.5 L MCV 90 MCH 30.8 MCHC 34.1 RDW 14.1 H Plt Count 132 L Sodium 133.6 L Potassium 4.8 Chloride 103 Carbon Dioxide 26 Anion Gap 5 BUN 35 H Creatinine 1.94 H Est GFR ( Amer) 33 L Glucose 216 H Calcium 8.8 Total Bilirubin 0.4 AST 22 Alkaline Phosphatase 141 H Total Protein 5.7 L Albumin 2.7 L Impressions: Abdomen/Pelvis CT 07/07/20 10:20 IMPRESSION: Air-fluid level in the bladder, correlate for recent catheterization, exclude infection clinically. No other acute findings identified. Assessment and Plan - Diagnosis (1) Acute kidney injury Is this a current diagnosis for this admission?: Yes (2) Dehydration Is this a current diagnosis for this admission?: Yes (3) CKD (chronic kidney disease) stage 3, GFR 30-59 ml/min Qualifiers: Chronic kidney disease stage 3 subtype: stage 3a (GFR 45-59) Qualified Code(s): N18.31 - Chronic kidney disease, stage 3a Is this a current diagnosis for this admission?: Yes (4) Diarrhea Qualifiers: Diarrhea type: unspecified type Qualified Code(s): R19.7 - Diarrhea, unspecified Is this a current diagnosis for this admission?: Yes (5) Intractable vomiting with nausea Is this a current diagnosis for this admission?: Yes - Plan Summary Summary: Nausea and vomiting have resolved. She displays no signs of infection. Creatinine is improving with IV fluids. We have restarted her home insulin in addition to her sliding scale to get her blood sugar under better control. We will adjust her insulin regimen as needed. For the air in the bladder on CT, now that she has not vomiting I am going to get a CT of the abdomen and pelvis with oral contrast only. She has not had a Baer catheter recently and does not have any recent instrumentation to her bladder or urinary system. Urinalysis was not suggestive of urinary tract infection to a degree that would generate that much gas in the bladder. - Time Time Spent with patient: 15-24 minutes Anticipated Discharge Disposition: Unknown Anticipated Discharge Timeframe: Unknown
[2020-07-09 05:19] LABS: HEMATOCRIT 33.3 % (36.0-47.0); HEMOGLOBIN 11.1 g/dL (12.0-15.5); MEAN CORPUSCULAR HEMOGLOBIN 30.3 pg (27.0-33.4); MEAN CORPUSCULAR HGB CONC 33.4 g/dL (32.0-36.0); MEAN CORPUSCULAR VOLUME 91 fl (80-97); PLATELET COUNT 124 10^3/uL (150-450); RED BLOOD COUNT 3.67 10^6/uL (3.72-5.28); WHITE BLOOD COUNT 5.2 10^3/uL (4.0-10.5)
[2020-07-09] MEDS: HEPARIN SOD (PORCINE) 5,000 UNIT/ML 1 ML VIAL SUBCUT SCH ×2 (05:21→13:02)
[2020-07-09 05:50] LABS: ALBUMIN 2.7 g/dL (3.5-5.0); ALKALINE PHOSPHATASE 159 U/L (38-126); ANION GAP 5 (5-19); ASPARTATE AMINO TRANSFERASE 30 U/L (14-36); BILIRUBIN,DIRECT 0.1 mg/dL (0.0-0.4); BILIRUBIN,TOTAL 0.3 mg/dL (0.2-1.3); BLOOD UREA NITROGEN 33 mg/dL (7-20); CALCIUM 8.7 mg/dL (8.4-10.2); CARBON DIOXIDE 23 mmol/L (22-30); CHLORIDE 105 mmol/L (98-107); GLUCOSE 295 mg/dL (75-110); POTASSIUM 5.6 mmol/L (3.6-5.0); TOTAL PROTEIN 5.6 g/dL (6.3-8.2)
[2020-07-09] MEDS: INSULIN LISPRO 100 UNIT/ML 3 ML VIAL SUBCUT SCH ×6 (07:38→16:58)
--- NOTE | 2020-07-09 08:32 | RADIOLOGY REPORT (SQ) ---
EXAM DESCRIPTION: CT ABD/PELVIS ORAL ONLY IMAGES COMPLETED DATE/TIME: 07/09/2020 12:26 am REASON FOR STUDY: pneumaturia, eval for colovesical fistula COMPARISON: CT of the abdomen and pelvis from 07/07/2020. TECHNIQUE: CT scan of the abdomen and pelvis performed without intravenous or oral contrast. Images reviewed with lung, soft tissue, and bone windows. Reconstructed coronal and sagittal MPR images revi ewed. All images stored on PACS. All CT scanners at this facility use dose modulation, iterative reconstruction, and/or weight based d osing when appropriate to reduce radiation dose to as low as reasonably achievable (ALARA). [facility]: Dose Right [facility]: CareDose [facility]: Dose Right [facility]: Teradose 4D [facility]: [employer] RADIATION DOSE: CT Rad equipment meets quality standard of care and radiation dose reduction techniq ues were employed. CTDIvol: 4.6 mGy. DLP: 224 mGy-cm. LIMITATIONS: None. FINDINGS: LOWER CHEST: No acute abnormality NON-CONTRASTED LIVER, SPLEEN, ADRENALS: Evaluation is limited by the absence of intravenous contrast. There is no evidence hepatic steatosis. The spleen is normal in size. There is no adrenal mass. PANCREAS: Unchanged dystrophic calcifications in the region of the pancreatic tail. GALLBLADDER: No acute gross abnormality of the gallbladder RIGHT KIDNEY AND URETER: Evaluation is limited by the absence of intravenous contrast. There is mild pelviectasis without hydronephrosis, nephrolithiasis, hydroureter or ureterolithiasis. LEFT KIDNEY AND URETER: Evaluation is limited by the absence of intravenous contrast. Unchanged adva nced atrophy of the kidney. There is no hydronephrosis, nephrolithiasis, hydroureter or ureterolithi asis. AORTA AND RETROPERITONEUM: No aneurysm of the abdominal aorta. No retroperitoneal adenopathy, hemorr troy or mass. BOWEL AND PERITONEAL CAVITY: Colonic diverticulosis without diverticulitis. There is no bowel obstru ction, bowel wall thickening or pericolonic/ perienteric inflammation. There is no mesenteric adenop athy, free intraperitoneal fluid or mesenteric/ omental inflammation. APPENDIX: Normal. PELVIS, BLADDER, AND ABDOMINAL WALL:There is re- demonstration of gas within the urinary bladder. Th ere is no oral contrast within the sigmoid colon or within the urinary bladder. There is no acute gr oss abnormality of the uterus or adnexa that is apparent on CT. BONES: No acute abnormality. OTHER: No other findings. IMPRESSION: 1. Unchanged air-fluid level within the urinary bladder. There is no oral contrast with in the descending/sigmoid colons or the urinary bladder. 2. Other unchanged findings as detailed above. COMMENT: Quality ID # [id number]: Final reports with documentation of one or more dose reduction techniques (e.g., Automated exposure control, adjustment of the mA and/or kV according to patient size, use of iterative reconstruction technique) TECHNICAL DOCUMENTATION: JOB ID: [id number] 2010 [employer]- All Rights Reserved Reading location - IP/workstation name: [email or web address]
[2020-07-09] MEDS: NORMAL SALINE 1000 ML 1,000 ML IV PRN (09:04)
[2020-07-09] MEDS: AMLODIPINE BESYLATE 10 MG TABLET PO SCH (09:04)
[2020-07-09] MEDS ORDERED: INSULIN LISPRO PROTAMIN SQ SCH (10:00)
[2020-07-09] MEDS ORDERED: INSULIN GLARGINE,HUM.REC.ANLOG 1,000 UNIT/10 ML VIAL SUBCUT SCH (10:00)
[2020-07-09] MEDS ORDERED: [UNRECOGNIZED DRUG - OTHER] SQ SCH (10:00)
[2020-07-09] MEDS ORDERED: LISPRO SQ SCH (10:00)
[2020-07-09] MEDS ORDERED: BISACODYL 5 MG TABEC PO SCH (12:00)
[2020-07-09] MEDS ORDERED: POLYETHYLENE GLYCOL 3350 POWDER 17 GM/1 PACKET PO SCH (12:00)
[2020-07-09] MEDS ORDERED: LISINOPRIL 10 MG TABLET PO SCH (13:00)
[2020-07-09] MEDS ORDERED: CEFTRIAXONE 1 GM/D5W RTU 1 GM/50 ML RTUPB IV SCH (13:00)
[2020-07-09 15:41] VITALS: BP 168/107
--- NOTE | 2020-07-09 15:50 | PDOC PROGRESS REPORT ---
Subjective Date:: 07/09/20 Subjective:: No adverse events overnight. No new complaints. She is eating and drinking wit hout difficulty. She has had good urine output. No fevers. No dysuria. Reason For Visit: ACUTE ON CHRONIC KIDNEY INJURY Physical Exam Vital Signs: Temp Pulse Resp BP Pulse Ox 98.2 F 94 18 168/107 H 100 07/09/20 15:06 07/09/20 15:06 07/09/20 03:52 07/09/20 15:06 07/09/20 15:06 Intake & Output 07/08/20 07/09/20 07/10/20 06:59 06:59 06:59 Intake Total 1410 2080 1470 Output Total 260 Balance 1150 2080 1470 Weight 57.2 kg 60.1 kg General appearance: PRESENT: no acute distress, cooperative, disheveled Respiratory exam: PRESENT: clear to auscultation chai, symmetrical, unlabored. ABSENT: accessory muscle use, chest wall tenderness, crackles, prolonged expiratory phas, rhonchi, tachypnea, wheezes Cardiovascular exam: PRESENT: RRR, +S1, +S2 Pulses: PRESENT: normal carotid pulses Vascular exam: PRESENT: normal capillary refill GI/Abdominal exam: PRESENT: normal bowel sounds, soft. ABSENT: distended, guard ing, rebound, tenderness Extremities exam: ABSENT: clubbing, pedal edema Musculoskeletal exam: PRESENT: normal inspection. ABSENT: deformity Neurological exam: PRESENT: awake, oriented to person, oriented to place, oriented to situation Psychiatric exam: PRESENT: flat affect Skin exam: PRESENT: dry, warm Results Laboratory Results: 07/09/20 04:58 07/09/20 04:58 07/09/20 07/09/20 04:58 04:58 WBC 5.2 RBC 3.67 L Hgb 11.1 L Hct 33.3 L MCV 91 MCH 30.3 MCHC 33.4 RDW 14.0 Plt Count 124 L Sodium 132.6 L Potassium 5.6 H Chloride 105 Carbon Dioxide 23 Anion Gap 5 BUN 33 H Creatinine 1.52 H Est GFR ( Amer) 44 L Glucose 295 H Calcium 8.7 Total Bilirubin 0.3 AST 30 Alkaline Phosphatase 159 H Total Protein 5.6 L Albumin 2.7 L Impressions: Abdomen/Pelvis CT 07/09/20 00:30 IMPRESSION: 1. Unchanged air-fluid level within the urinary bladder. There is no oral contrast within the descending/sigmoid colons or the urinary bladder. 2. Other unchanged findings as detailed above. Assessment and Plan - Diagnosis (1) Acute kidney injury Is this a current diagnosis for this admission?: Yes (2) Dehydration Is this a current diagnosis for this admission?: Yes (3) CKD (chronic kidney disease) stage 3, GFR 30-59 ml/min Qualifiers: Chronic kidney disease stage 3 subtype: stage 3a (GFR 45-59) Qualified Code(s): N18.31 - Chronic kidney disease, stage 3a Is this a current diagnosis for this admission?: Yes (4) Diarrhea Qualifiers: Diarrhea type: unspecified type Qualified Code(s): R19.7 - Diarrhea, unspecified Is this a current diagnosis for this admission?: Yes (5) Intractable vomiting with nausea Is this a current diagnosis for this admission?: Yes (6) Urinary tract infection Qualifiers: Urinary tract infection type: acute cystitis Hematuria presence: without hematuria Qualified Code(s): N30.00 - Acute cystitis without hematuria Is this a current diagnosis for this admission?: Yes - Plan Summary Summary: Nausea and vomiting have resolved. She displays no signs of infection. Creatinine is improving with IV fluids. We have restarted her home insulin in addition to her sliding scale to get her blood sugar under better control. Her blood pressure has been high so I have added lisinopril to her home dose of amlodipine. CT of the abdomen and pelvis did not shown colovesicular fistula. I am still not convinced that she is got a true urinary tract infection, but that would be the only thing left that could have caused air in the bladder because everything else is been ruled out, so I am going to put her on some Rocephin. She continues to have no signs of dysuria. - Time Time Spent with patient: 15-24 minutes Anticipated Discharge Disposition: Home, Self Care Anticipated Discharge Timeframe: within 48 hours
[2020-07-09] MEDS ORDERED: HYDRALAZINE HCL INJ/PF 20 MG/1 ML SDV IV PRN (16:22)
[2020-07-09] MEDS ORDERED: HYDRALAZINE HCL 25 MG TABLET PO PRN (17:27)
--- NOTE | 2020-07-09 20:21 | Left Against Medical Advice ---
Against Medical Advice Admission Date/Time: 07/07/20 15:15 Primary Care Provider: LYLE ROBERSON DO Date of Patient Emigration: 07/09/20 - Diagnosis: (1) Dehydration Is this a current diagnosis for this admission?: Yes (2) Acute kidney injury Is this a current diagnosis for this admission?: Yes (3) CKD (chronic kidney disease) stage 3, GFR 30-59 ml/min Is this a current diagnosis for this admission?: Yes (4) Urinary tract infection Is this a current diagnosis for this admission?: Yes (5) Diarrhea Is this a current diagnosis for this admission?: Yes (6) Intractable vomiting with nausea Is this a current diagnosis for this admission?: Yes - Summary: Summary: Please see Admission and Progress Notes as well. DEEPTHI MARQUEZ is a 50 F, who LEFT AGAINST MEDICAL ADVICE. The Patient was admitted on 07/07/20 15:15.
== END 2020-07-09 20:10 | disposition left against medical advice (07) | DRG 683 ==
LOC: ER 04:18 → EH 15:15 → 4S 17:20
PROVIDERS: ADMIT Family Medicine; ATTEND Family Medicine
DX: N17.9 Acute kidney failure, unspecified (principal); N39.0 Urinary tract infection, site not specified; K86.1 Other chronic pancreatitis; E86.0 Dehydration; I10 Essential (primary) hypertension; F17.210 Nicotine dependence, cigarettes, uncomplicated; F12.10 Cannabis abuse, uncomplicated; I12.9 Hypertensive chronic kidney disease with stage 1 through stage 4 chronic kidney disease, or unspecified chronic kidney disease; E10.22 Type 1 diabetes mellitus with diabetic chronic kidney disease; N18.31 Chronic kidney disease, stage 3a; M19.90 Unspecified osteoarthritis, unspecified site; F32.9 Major depressive disorder, single episode, unspecified; Z88.0 Allergy status to penicillin; Z88.2 Allergy status to sulfonamides; Z88.6 Allergy status to analgesic agent; Z83.3 Family history of diabetes mellitus; Z79.4 Long term (current) use of insulin; Z79.899 Other long term (current) drug therapy
CPT/HCPCS: 36415; 74176; 80053; 80307; 81001; 82962; 83690; 85025; 85027; 93005; 93010; 96365; 96375; 99285; J0696; J0780; J1815; J1956; J2405; J3010; J3490; J7030

== ENCOUNTER 2020-07-28 04:23 | Inpatient (IN) | payer MEDICARE ==
[2020-07-28 04:58] LABS: ABSOLUTE LYMPHOCYTES (AUTO) 0.9 10^3/uL (0.5-4.7); ABSOLUTE MONOCYTES (AUTO) 0.4 10^3/uL (0.1-1.4); ABSOLUTE NEUT (AUTO) 8.9 10^3/uL (1.7-8.2); BASOPHILS % (AUTO) 0.3 % (0-2); EOSINOPHILS % (AUTO) 0.1 % (0-6); HEMATOCRIT 43.7 % (36.0-47.0); HEMOGLOBIN 14.7 g/dL (12.0-15.5); LYMPHOCYTES % (AUTO) 9.1 % (13-45); MEAN CORPUSCULAR HEMOGLOBIN 29.9 pg (27.0-33.4); MEAN CORPUSCULAR HGB CONC 33.6 g/dL (32.0-36.0); MEAN CORPUSCULAR VOLUME 89 fl (80-97); MONOCYTES % (AUTO) 4.1 % (3-13); PLATELET COUNT 234 10^3/uL (150-450); RED BLOOD COUNT 4.91 10^6/uL (3.72-5.28); RED CELL DISTRIBUTION WIDTH 14.6 % (11.5-14.0); SEGMENTED NEUTROPHILS % (AUTO) 86.4 % (42-78); TOTAL CELLS COUNTED % (AUTO) 100 %; WHITE BLOOD COUNT 10.4 10^3/uL (4.0-10.5)
[2020-07-28 05:15] LABS: ALBUMIN 4.1 g/dL (3.5-5.0); ALKALINE PHOSPHATASE 242 U/L (38-126); ANION GAP 15 (5-19); ASPARTATE AMINO TRANSFERASE 31 U/L (14-36); BILIRUBIN,DIRECT 0.5 mg/dL (0.0-0.4); BILIRUBIN,TOTAL 0.7 mg/dL (0.2-1.3); BLOOD UREA NITROGEN 32 mg/dL (7-20); CALCIUM 10.3 mg/dL (8.4-10.2); CARBON DIOXIDE 27 mmol/L (22-30); CHLORIDE 104 mmol/L (98-107); GLUCOSE 306 mg/dL (75-110); POTASSIUM 3.8 mmol/L (3.6-5.0); TOTAL PROTEIN 8.1 g/dL (6.3-8.2)
--- NOTE | 2020-07-28 08:08 | ER Document Report ---
ED General - General Chief Complaint: GI Bleeding Stated Complaint: VOMITING BLOOD TRAVEL OUTSIDE OF THE [place] IN LAST 30 DAYS: No - HPI Notes: 50-year-old female with a history of hypertension, type 2 diabetes, pancreatitis, GERD presents to the emergency room today for evaluation after she has been vomiting blood bloody stool for the last 24 hours. Patient reports coffee-ground emesis and black tarry stool. Reports her last GI bleed was 10 years ago, has not had a colonoscopy or an endoscopy in over 10 years reports generalized abdominal pain, reports pain is 5 out of 5, sharp and stabbing. Denies any history of IBS or Crohn's disease. Patient does have a history of alcoholism, states she last drank wine 9 days ago 1 years day. Denies any chest pain, shortness of breath. Patient states she takes amlodipine and metoprolol for her blood pressure medication, she did not take this medication today. Patient's blood pressure today is elevated in 200/80 - Related Data Allergies/Adverse Reactions: Penicillins Allergy (Severe, Verified 07/07/20 04:47) SOB, ITCHING Sulfa (Sulfonamide Antibiotics) Allergy (Severe, Verified 07/07/20 04:47) SOB, ITCHING hydromorphone HCl [From Dilaudid] Allergy (Intermediate, Verified 07/07/20 04:47) ITCHING Home Medications: tramadol, metoprolol, dicyclomine, amlodepine Past Medical History - General Information source: Patient - Social History Smoking Status: Current Every Day Smoker Drug Abuse: None Family History: DM Patient has homicidal ideation: No - Past Medical History Cardiac Medical History: Reports: Hx Hypertension Denies: Hx Heart Attack Pulmonary Medical History: Reports: Hx Asthma - DOES NOT USE INHALERS Denies: Hx Tuberculosis Neurological Medical History: Denies: Hx Cerebrovascular Accident, Hx Seizures Endocrine Medical History: Reports: Hx Diabetes Mellitus Type 1, Hx Diabetes Mellitus Type 2 Renal/ Medical History: Denies: Hx Peritoneal Dialysis GI Medical History: Reports: Hx Gastroesophageal Reflux Disease, Hx Pancreatitis. Denies: Hx Hepatitis, Hx Hiatal Hernia, Hx Ulcer Musculoskeletal Medical History: Reports Hx Arthritis, Reports Hx Musculoskeletal Deformity, Reports Hx Musculoskeletal Trauma Psychiatric Medical History: Reports: Hx Depression Traumatic Medical History: Reports: Hx Fractures Infectious Medical History: Denies: Hx Hepatitis Past Surgical History: Reports: Hx Abdominal Surgery - For pancreatic cyst in 2004, Hx Section, Hx Orthopedic Surgery - left leg surgery. Denies: Hx Appendectomy, Hx Bowel Surgery, Hx Cholecystectomy, Hx Coronary Artery Bypass Graft, Hx Gastric Bypass Surgery, Hx Herniorrhaphy, Hx Hysterectomy, Hx Mastectomy, Hx Open Heart Surgery, Hx Pacemaker, Hx Tonsillectomy, Hx Tubal Ligation - Immunizations Immunizations up to date: Yes Hx Diphtheria, Pertussis, Tetanus Vaccination: Yes Hx Pneumococcal Vaccination: 07/20/10 Review of Systems - Review of Systems Constitutional: No symptoms reported EENT: No symptoms reported Cardiovascular: See HPI Respiratory: See HPI Gastrointestinal: See HPI Genitourinary: No symptoms reported Female Genitourinary: No symptoms reported Musculoskeletal: No symptoms reported Skin: No symptoms reported Hematologic/Lymphatic: No symptoms reported Neurological/Psychological: No symptoms reported Physical Exam - Vital signs Vitals: Resp Pulse Ox 20 100 07/28/20 04:26 07/28/20 04:26 - Notes Notes: MEDICATIONS: I agree with the patient medications as charted by the RN. ALLERGIES: I agree with the allergies as charted by the RN. PAST MEDICAL HISTORY/PAST SURGICAL HISTORY: Reviewed and agree as charted by RN. SOCIAL HISTORY: Reviewed and agree as charted by RN. FAMILY HISTORY: No significant familial comorbid conditions directly related to patient complaint EXAM: Reviewed vital signs as charted by RN. PHYSICAL EXAMINATION: reviewed vital signs by RN GENERAL: Acutely ill, well-nourished and in moderate distress. Agitated HEAD: Atraumatic, normocephalic. EYES: Pupils equal round and reactive to light, extraocular movements intact, conjunctiva are normal. ENT: Nares patent, oropharynx clear without exudates. Moist mucous membranes. NECK: Normal range of motion, supple without lymphadenopathy LUNGS: Breath sounds clear to auscultation bilaterally and equal. No wheezes rales or rhonchi. HEART: Regular rate and rhythm without murmurs ABDOMEN: Soft, generalized abdominal pain nondistended abdomen. No guarding, no rebound. No masses appreciated. No CVA tenderness appreciated bilaterally Female : deferred Musculoskeletal: Normal range of motion, no pitting or edema. No cyanosis. NEUROLOGICAL: Cranial nerves grossly intact. Normal speech, normal gait. Normal sensory, motor exams PSYCH: Normal mood, normal affect. SKIN: Warm, Dry, normal turgor, no rashes or lesions noted. Course - Re-evaluation Re-evalutation: 07/28/20 08:45 Afebrile, hypertensive with blood pressures 200s over 110s, heart rate between 90-100, reports pain is 5 out of 5. Patient states he has not slept in 2 days. CBC negative for leukocytosis or anemia, CMP shows a creatinine of 1.68 with a BUN of 32, lactic normal with 1.2, lipase 72, no hepatic dysfunction. Potassium is normal. Chest x-ray unremarkable. Patient states that she is having 5 out of 5 pain, ordered 5mg of morphine IVP. 0846-consulted with Dr. Cesar Schneider, ER supervising physician regarding starting nitro drip due to uncontrolled blood pressure. Protonix drip started CT abdomen pelvis does not show a dissection, mesenteric ischemia, active bleed. Patient actively agitated blood pressure still elevated, consulted with Dr. Schneider about this and he advised ordering 1 mg of Ativan. 1045-consulted with Dr. Jorden Gillis, surgeon on-call regarding if patient could do an upper endoscopy, he stated that he can. Consulted with hospitalist Dr. Banerjee at 11am, she will take patient and is aware the patient is going for an endoscopy. Patient was agreeable with this plan of care and verbalized understanding plan of care. Patient accepted to medical service with Dr. Gillis for consultation for endoscopy - Vital Signs Vital signs: Temp Pulse Resp BP Pulse Ox 97.6 F 91 18 198/102 H 100 07/28/20 16:54 07/28/20 16:54 07/28/20 16:54 07/28/20 16:54 07/28/20 16:54 - Laboratory Results Result Diagrams: 07/28/20 04:28 07/28/20 04:28 Laboratory Results Interpreted: 07/28/20 07/28/20 07/28/20 04:28 04:28 05:14 RDW 14.6 H Lymph % (Auto) 9.1 L Absolute Neuts (auto) 8.9 H Seg Neutrophils % 86.4 H APTT Sodium 145.6 H BUN 32 H Creatinine 1.68 H Est GFR ( Amer) 39 L Est GFR (MDRD) Non-Af 32 L Glucose 306 H POC Glucose 278 H Calcium 10.3 H Direct Bilirubin 0.5 H Alkaline Phosphatase 242 H Urine Protein Urine Glucose (UA) Urine Blood 07/28/20 07/28/20 09:44 11:02 RDW Lymph % (Auto) Absolute Neuts (auto) Seg Neutrophils % APTT 20.1 L Sodium BUN Creatinine Est GFR ( Amer) Est GFR (MDRD) Non-Af Glucose POC Glucose Calcium Direct Bilirubin Alkaline Phosphatase Urine Protein >=500 H Urine Glucose (UA) >=500 H Urine Blood SMALL H Critical Laboratory Results Reviewed: No Critical Results - Radiology Results Critical Radiology Results Reviewed: No Critical Results - EKG Interpretation by [place] EKG shows normal: Sinus rhythm Rate: Normal Additional EKG results interpreted by me: 07/28/20 17:12 Heart rate is 96. P axis 62, QRS axis 92, T axis is like this week they were starting times a day -72. No STEMI, no ST segment elevations. Interpreted by ER supervising physician. 07/28/20 17:13 Discharge - Discharge Clinical Impression: GI bleed Qualifiers: GI bleed type/associated pathology: unspecified gastrointestinal hemorrhage type Qualified Code(s): K92.2 - Gastrointestinal hemorrhage, unspecified Condition: Stable Disposition: ADMITTED INPATIENT Admitting Provider: Lavonne (Hospitalist) Unit Admitted: [facility]
[2020-07-28] MEDS ORDERED: NORMAL SALINE 1000 ML 1,000 ML IV ONE (08:16)
[2020-07-28] MEDS ORDERED: ONDANSETRON HCL INJ/PF 4 MG/2 ML SDV IV ONE (08:16)
[2020-07-28] MEDS ORDERED: NITROGLYCERIN/D5W 50 MG/250 ML RTUINJ IV PRN (08:40)
[2020-07-28] MEDS ORDERED: MORPHINE SULFATE 10 MG/ML INJ IV ONE ×2 (08:44→10:30)
[2020-07-28] MEDS ORDERED: NORMAL SALINE 500 ML IV ONE (08:45)
--- NOTE | 2020-07-28 10:17 | RADIOLOGY REPORT (SQ) ---
EXAM DESCRIPTION: CTA ABDOMEN/PELVIS W WO IMAGES COMPLETED DATE/TIME: 07/28/2020 9:41 am REASON FOR STUDY: blood stool/[id number]/generalized abd pain COMPARISON: CT 07/09/2020, 07/07/2020 TECHNIQUE: CT scan of the abdominal aorta extending to the iliac bifurcation performed with and with out intravenous contrast using helical scanning technique with dynamic intravenous contrast injection . Images reviewed with lung, soft tissue, and bone windows. Reconstructed coronal and sagittal MPR im ages reviewed. All images stored on PACS. Advanced 3D imaging as volume rendering, MIPS, SSD performed? yes All CT scanners at this facility use dose modulation, iterative reconstruction, and/or weight based d osing when appropriate to reduce radiation dose to as low as reasonably achievable (ALARA). [facility]: Dose Right [facility]: CareDose [facility]: Dose Right [facility]: Teradose 4D [facility]: [employer] CONTRAST TYPE AND DOSE: contrast/concentration: Isovue 350.00 mmol/ml; Total Contrast Delivered: 80. 0 ml; Total Saline Delivered: 70.0 ml RENAL FUNCTION: Creatinine 1.68 LIMITATIONS: None. FINDINGS: NON-CONTRASTED IMAGING: No significant renal or bladder calcifications. No other significa nt organ calcifications. POST-CONTRAST IMAGING: AORTA AND VESSELS: No aneurysm. No dissection. Renal arteries, SMA, celiac without stenosis. LUNG BASES: No significant findings. No nodules or infiltrates. LIVER: Normal size. No masses or dilated ducts. SPLEEN: Normal size. No focal lesions. PANCREAS: No masses. No significant calcifications. No adjacent inflammation or peripancreatic fluid collections. Pancreatic duct not dilated. GALLBLADDER: No identified stones by CT criteria. No inflammatory changes to suggest cholecystitis. ADRENAL GLANDS: No significant masses or asymmetry. RIGHT KIDNEY AND URETER: No mass, calculi or urinary tract obstruction. LEFT KIDNEY AND URETER: Atrophic/dystrophic. Similar to previous studies back to 2018. RETROPERITONEUM: No retroperitoneal adenopathy, hemorrhage or masses. BOWEL AND PERITONEAL CAVITY: No masses or inflammatory changes. No free fluid or peritoneal masses. APPENDIX: Not visualized. ABDOMINAL WALL: No masses. No hernias. BONY STRUCTURES: No significant or acute findings. 3-D IMAGING: Confirms the above findings. OTHER: Dystrophic calcifications left upper quadrant undetermined etiology. Stable. IMPRESSION: NO ABDOMINAL AORTIC ANEURYSM, DISSECTION OR SIGNIFICANT STENOSIS. NO SIGNIFICANT FINDING S IN THE ABDOMEN. Chronic atrophic/dystrophic left kidney. Chronic dystrophic calcification left upper quadrant. TECHNICAL DOCUMENTATION: JOB ID: [id number] Quality ID # [id number]: Final reports with documentation of one or more dose reduction techniques (e.g., Au tomated exposure control, adjustment of the mA and/or kV according to patient size, use of iterative reconstruction technique) 2010 [email or web address]- All Rights Reserved Reading location - IP/workstation name: [email or web address]
[2020-07-28 10:20] LABS: APPEARANCE,URINE CLEAR; BILIRUBIN,URINE NEGATIVE (NEGATIVE); COLOR,URINE YELLOW; GLUCOSE, URINE >=500 mg/dL (NEGATIVE); KETONES,URINE NEGATIVE (NEGATIVE); LEUKOCYTE ESTERASE,URINE NEGATIVE (NEGATIVE); NITRITE,URINE NEGATIVE (NEGATIVE); PROTEIN,URINE >=500 mg/dL (NEGATIVE); URINE SPECIFIC GRAVITY 1.018; UROBILINOGEN,URINE NEGATIVE mg/dL (<2.0)
[2020-07-28] MEDS ORDERED: PANTOPRAZOLE SODIUM 40 MG VIAL IV ONE (10:25)
--- NOTE | 2020-07-28 10:33 | RADIOLOGY REPORT (SQ) ---
EXAM DESCRIPTION: CHEST SINGLE VIEW IMAGES COMPLETED DATE/TIME: 07/28/2020 10:04 am REASON FOR STUDY: sob COMPARISON: 11/20/2019 EXAM PARAMETERS: NUMBER OF VIEWS: One view. TECHNIQUE: Single frontal radiographic view of the chest acquired. RADIATION DOSE: NA LIMITATIONS: None. FINDINGS: LUNGS AND PLEURA: No opacities, masses or pneumothorax. No pleural effusion. MEDIASTINUM AND HILAR STRUCTURES: No masses. Contour normal. HEART AND VASCULAR STRUCTURES: Heart normal in size. Normal vasculature. BONES: No acute findings. HARDWARE: None in the chest. OTHER: No other significant finding. IMPRESSION: NO ACUTE RADIOGRAPHIC FINDING IN THE CHEST. TECHNICAL DOCUMENTATION: JOB ID: [id number] 2010 [employer]- All Rights Reserved Reading location - IP/workstation name: [email or web address]
[2020-07-28] MEDS ORDERED: LORAZEPAM INJ 2 MG/1 ML VIAL IV ONE (10:57)
[2020-07-28 11:30] LABS: INTERNATIONAL RATION (INR) 0.87; PROTHROMBIN TIME 12.1 SEC (11.4-15.4)
[2020-07-28 11:31] LABS: PARTIAL THROMBOPLASTIN TIME 20.1 SEC (23.5-35.8)
--- NOTE | 2020-07-28 11:37 | PDOC CONSULTATION ---
Consultation Consult Date: 07/28/20 Provider Consulted: ANNA GREER Consult reason:: Coffee-ground emesis for 24 hours History of Present Illness Admission Date/PCP: 07/28/20 11:18 LYLE ROBERSON DO History of Present Illness: DEEPTHI MARQUEZ is a 50 year old female poor historian, history of hypertension, diabetes, alcoholic pancreatitis, brought to the emergency room by the EMS with a 24-hour history of coffee-ground emesis. The patient is unable to to give a clear history; however, it appears that she has been suffering from heartburn for quite some time. She denies the use of antacids or Maalox or Tums. During the examination, the patient was sleepy due to administration of Ativan, however she was arousable and able to respond to the questions. According to the nurses, the patient passed some mucousy stools which were grossly negative for blood but tested heme positive. Past Medical History Cardiac Medical History: Reports: Hypertension Denies: Myocardial Infarction Pulmonary Medical History: Reports: Asthma - DOES NOT USE INHALERS Denies: Tuberculosis Neurological Medical History: Denies: Seizures Endocrine Medical History: Reports: Diabetes Mellitus Type 1, Diabetes Mellitus Type 2 GI Medical History: Reports: Gastroesophageal Reflux Disease Denies: Hepatitis, Hiatal Hernia Musculoskeltal Medical History: Reports: Arthritis Psychiatric Medical History: Reports: Depression Hematology: Denies: Anemia, Sickle Cell Disease Past Surgical History Past Surgical History: Reports: Section, Orthopedic Surgery - left leg surgery Denies: Amputation, Appendectomy, Cholecystectomy, Coronary Artery Bypass Graft, Gastric Bypass Surgery, Herniorrhaphy, Hysterectomy, Mastectomy, Pacemaker, Tonsillectomy, Tubal Ligation Social History Smoking Status: Current Every Day Smoker Frequency of Alcohol Use: Occasional Hx Recreational Drug Use: Yes Drugs: Marijuana Hx Prescription Drug Abuse: No Family History Family History: DM Parental Family History Reviewed: No Children Family History Reviewed: No Sibling(s) Family History Reviewed.: No Medication/Allergy Home Medications: Amlodipine Besylate [Norvasc 10 mg Tablet] 10 mg PO DAILY 07/07/20 Insulin Lispro Protamin/Lispro [Insulin Lispro Mix 75-25 Kwkpn] 30 unit SQ DAILY 07/07/20 Insulin Lispro [Humalog Insulin (Lispro) 100 unit/mL] 5 units SUBCUT TID 07/07/20 Allergies/Adverse Reactions: Penicillins Allergy (Severe, Verified 07/07/20 04:47) SOB, ITCHING Sulfa (Sulfonamide Antibiotics) Allergy (Severe, Verified 07/07/20 04:47) SOB, ITCHING hydromorphone HCl [From Dilaudid] Allergy (Intermediate, Verified 07/07/20 04:47) ITCHING Physical Exam Vital Signs: Temp Pulse Resp BP Pulse Ox 98.1 F 101 H 20 186/105 H 100 07/28/20 04:51 07/28/20 04:51 07/28/20 10:16 07/28/20 11:16 07/28/20 11:16 Intake & Output 07/27/20 07/28/20 07/29/20 06:59 06:59 06:59 Intake Total 1003 Balance 1003 Weight 57.606 kg General appearance: PRESENT: no acute distress, thin, other - Patient sleepy but arousable Eye exam: PRESENT: EOMI Mouth exam: PRESENT: moist, neck supple Teeth exam: PRESENT: poor dentation Neck exam: PRESENT: full ROM Respiratory exam: PRESENT: clear to auscultation chai Cardiovascular exam: PRESENT: RRR GI/Abdominal exam: PRESENT: hypoactive bowel sounds, soft, tenderness - Slight diffusely tender no peritoneal signs Extremities exam: PRESENT: full ROM Musculoskeletal exam: PRESENT: full ROM Neurological exam: PRESENT: CN II-XII grossly intact, other - Sleepy but arousable Skin exam: PRESENT: warm Results Laboratory Results: 07/28/20 04:28 07/28/20 04:28 07/28/20 07/28/20 07/28/20 04:28 04:28 09:44 WBC 10.4 RBC 4.91 Hgb 14.7 Hct 43.7 MCV 89 MCH 29.9 MCHC 33.6 RDW 14.6 H Plt Count 234 Seg Neutrophils % 86.4 H Sodium 145.6 H Potassium 3.8 Chloride 104 Carbon Dioxide 27 Anion Gap 15 BUN 32 H Creatinine 1.68 H Est GFR ( Amer) 39 L Glucose 306 H Calcium 10.3 H Total Bilirubin 0.7 AST 31 Alkaline Phosphatase 242 H Total Protein 8.1 Albumin 4.1 Lipase 74.2 Urine Color YELLOW Urine Appearance CLEAR Urine pH 6.0 Ur Specific [place] 1.018 Urine Protein >=500 H Urine Glucose (UA) >=500 H Urine Ketones NEGATIVE Urine Blood SMALL H Urine Nitrite NEGATIVE Ur Leukocyte Esterase NEGATIVE Urine WBC (Auto) 1 Urine RBC (Auto) 2 Impressions: Abdomen/Pelvis CTA 07/28/20 00:00 IMPRESSION: NO ABDOMINAL AORTIC ANEURYSM, DISSECTION OR SIGNIFICANT STENOSIS. NO SIGNIFICANT FINDINGS IN THE ABDOMEN. Chronic atrophic/dystrophic left kidney. Chronic dystrophic calcification left upper quadrant. Chest X-Ray 07/28/20 09:32 IMPRESSION: NO ACUTE RADIOGRAPHIC FINDING IN THE CHEST. Assessment & Plan - Diagnosis (2) GI bleed Qualifiers: GI bleed type/associated pathology: unspecified gastrointestinal hemorrhage type Qualified Code(s): K92.2 - Gastrointestinal hemorrhage, unspecified Is this a current diagnosis for this admission?: Yes - Plan Summary Plan Summary: Placement: 50-year-old female for historian with a 24-hour history of coffee-ground emesis History of heartburn for an unspecified time Type 2 diabetes and hypertension as well as alcoholic pancreatitis Blood work reveals an H&H of 14 and 43.7 with normal electrolytes and slightly deviated BUN and creatinine 32 and 1.6, respectively Normal lipase Slight elevated alkaline phosphatase 242 Physical exam reveals a slight diffuse pain, without peritoneal signs or guarding CTA of the abdomen is negative for active bleeding or or acute findings Plan: EGD with biopsy and IV sedation Procedure, risks, benefits, complications, discussed with the patient, she understands all the above, she desires to proceed
[2020-07-28] MEDS ORDERED: ENALAPRILAT DIHYDRATE INJ/PF 1.25 MG/1 ML SDV IV ONE (12:55)
[2020-07-28] MEDS ORDERED: NALOXONE HCL INJ/PF 0.4 MG/1 ML SDV ONE (12:56)
[2020-07-28] MEDS ORDERED: NALOXONE HCL INJ/PF 0.4 MG/1 ML SDV IV ONE (12:56)
[2020-07-28] MEDS ORDERED: IPRATROPIUM/ALBUTEROL 0.5-2.5 MG/3 ML AMPUL NEB PRN (13:00)
[2020-07-28] MEDS ORDERED: ENALAPRILAT DIHYDRATE INJ/PF 2.5 MG/2 ML SDV IV ONE (13:15)
[2020-07-28] MEDS: NORMAL SALINE 1000 ML 1,000 ML IV PRN (13:38)
[2020-07-28] MEDS ORDERED: LIDOCAINE 2% INJ (20 MG/ML) 20 ML MDV ONE (13:57)
[2020-07-28] MEDS ORDERED: PROPOFOL INJ 200 MG/20 ML VIAL IV ONE (13:57)
[2020-07-28] MEDS ORDERED: GLUCAGON,HUMAN RECOMB 1 MG INJ ONE (14:12)
[2020-07-28] MEDS ORDERED: EPINEPHRINE INJ 1 MG/10 ML DISP.SYRIN ONE (14:12)
[2020-07-28] MEDS ORDERED: CLONIDINE 0.2 MG/24 HR PATCH.TDWK TD SCH (15:00)
[2020-07-28] MEDS ORDERED: METOPROLOL TARTRATE PF/INJ 5 MG/5 ML SDV IV ONE ×3 (15:03→17:00)
--- NOTE | 2020-07-28 15:28 | Operative Report ---
Operative Report DATE OF SURGERY: 07/28/20 PREOPERATIVE DIAGNOSIS: Coffee ground emesis POSTOPERATIVE DIAGNOSIS: Coffee ground emesis, gastritis of the fundus and body of stomach, duodenitis first portion of the duodenum OPERATION: EGD with biopsy SURGEON: ANNA GREER ANESTHESIA: Moderate Sedation TISSUE REMOVED OR ALTERED: Biopsy of mucosa of the first portion duodenum and of the body of stomach COMPLICATIONS: None ESTIMATED BLOOD LOSS: Negligible INTRAOPERATIVE FINDINGS: Superficial gastritis of the fundus and body of the stomach; superficial duodenitis of the first portion of the duodenum PROCEDURE: The procedure was done in surgery, the patient was placed in a lateral decubitus on the surgical bed; IV sedation was provided by the anesthesiologist, the gastroscope was inserted into the mouth, esophagus, stomach, and first, second, and third portion of the duodenum. The preparation was good, and no masses, polyps, strictures were noted. Superficial inflammation of the gastric mucosa of the stomach body and fundus as well as first portion of the duodenum was identified with digested blood. No ulcers were seen. The remaining portion of the duodenum was normal. The scope was then slowly withdrawn into the stomach, retroflexed: the fundus was affected by superficial inflammation of the mucosa; however, the GE junction appeared to be within the normal limits. The scope was slowly withdrawn into the esophagus which appeared to be normal and removed from the patient mouth without difficulty. The patient tolerated procedure well and transferred to the recovery room in satisfactory conditions.
--- NOTE | 2020-07-28 15:30 | Progress Note ---
Provider Note Provider Note: S/p EGD with biopsy Assessment: Gastritis of the fundus and body of the stomach with digested blood, no active ulcers seen Duodenitis of the first portion of the duodenum, remaining portion duodenum normal Plan: I am recommending high-dose PPI such as Protonix 40 mg IV every 8 while hospitalized, then switch to Protonix 40 mg p.o. twice daily for 3 months The patient should remain on a maintenance dose of famotidine 2 mg p.o. twice daily lifetime Carafate 1 g p.o. 4 times daily while in the hospital and for 3 months, then stop I will sign off. Please call me with questions.
[2020-07-28] MEDS ORDERED: DIPHENHYDRAMINE HCL 50 MG/ML VIAL IV PRN (15:32)
[2020-07-28] MEDS ORDERED: FENTANYL CITRATE INJ/PF 100 MCG/2 ML AMPUL IV PRN ×3 (15:32)
[2020-07-28] MEDS ORDERED: PROMETHAZINE HCL INJ 25 MG/1 ML VIAL IV PRN (15:32)
[2020-07-28] MEDS: LABETALOL HCL INJ 20 MG/4 ML DISP.SYRIN IV ONE ×2 (16:15→16:25)
[2020-07-28] MEDS: SUCRALFATE 1 GM TABLET PO SCH ×3 (16:51→23:13)
[2020-07-28] MEDS ORDERED: GLUCAGON,HUMAN RECOMB 1 MG INJ IM PRN (17:36)
[2020-07-28] MEDS ORDERED: DEXTROSE 50%-WATER 25 GM/50 ML DISP.SYRIN IV PRN ×2 (17:36)
[2020-07-28] MEDS ORDERED: DEXTROSE 40% GEL 15 GM TUBE PO PRN ×2 (17:36)
[2020-07-28] MEDS ORDERED: ENALAPRILAT DIHYDRATE INJ/PF 1.25 MG/1 ML SDV IV PRN (18:05)
--- NOTE | 2020-07-28 18:15 | PDOC H&P ---
History of Present Illness Admission Date/PCP: 07/28/20 11:18 LYLE ROBERSON DO History of Present Illness: DEEPTHI MARQUEZ is a 50 year old female, 50-year-old female with a history of hypertension, type 2 diabetes, pancreatitis, GERD presents to the emergency room today for evaluation after she has been vomiting blood bloody stool for the last 24 hours. The patient was very sedated when I saw her in room 530 and I was not able to get any type of history from her. Per ED notes she came in due to coffee ground emesis and bloody stool for the last 24 hrs. She has a history of pancreatitis and was complaining of abdominal pain, she was given 10 mg of IV morphine in the ED along with 1 mg of ativan for withdrawal. I suspect this is why she is very drowsy. She was also noted to have elevated BP 194/105 hence she was given labetalol IV push. Dr. Gillis from surgery was called who performed an EGD which revealed gastritis of the fundus and body of the stomach with digested blood, no active ulcers seen. She was given IV fluids and IV protonix and was admitted for further evaluation and management. Past Medical History Cardiac Medical History: Reports: Hypertension Denies: Myocardial Infarction Pulmonary Medical History: Reports: Asthma - DOES NOT USE INHALERS Denies: Tuberculosis Neurological Medical History: Denies: Seizures Endocrine Medical History: Reports: Diabetes Mellitus Type 1, Diabetes Mellitus Type 2 GI Medical History: Reports: Gastroesophageal Reflux Disease Denies: Hepatitis, Hiatal Hernia Musculoskeltal Medical History: Reports: Arthritis Psychiatric Medical History: Reports: Depression Hematology: Denies: Anemia, Sickle Cell Disease Past Surgical History Past Surgical History: Reports: Section, Orthopedic Surgery - left leg surgery Denies: Amputation, Appendectomy, Cholecystectomy, Coronary Artery Bypass Graft, Gastric Bypass Surgery, Herniorrhaphy, Hysterectomy, Mastectomy, Pacemaker, Tonsillectomy, Tubal Ligation Social History Smoking Status: Current Every Day Smoker Frequency of Alcohol Use: Occasional Hx Recreational Drug Use: Yes Drugs: Marijuana Hx Prescription Drug Abuse: No Family History Family History: DM Parental Family History Reviewed: No Children Family History Reviewed: No Sibling(s) Family History Reviewed.: No Medication/Allergy Home Medications: Amlodipine Besylate [Norvasc 10 mg Tablet] 10 mg PO DAILY 07/07/20 Insulin Lispro [Humalog Insulin (Lispro) 100 unit/mL] 5 units SUBCUT TID 07/07/20 Metoprolol Succinate [Toprol Xl 50 mg Tab.sr] 50 mg PO DAILY 07/28/20 Allergies/Adverse Reactions: Penicillins Allergy (Severe, Verified 07/07/20 04:47) SOB, ITCHING Sulfa (Sulfonamide Antibiotics) Allergy (Severe, Verified 07/07/20 04:47) SOB, ITCHING hydromorphone HCl [From Dilaudid] Allergy (Intermediate, Verified 07/07/20 04:47) ITCHING Review of Systems ROS unobtainable: Due to mental status Physical Exam Vital Signs: Temp Pulse Resp BP Pulse Ox 97.6 F 91 18 198/102 H 100 07/28/20 16:54 07/28/20 16:54 07/28/20 16:54 07/28/20 16:54 07/28/20 16:54 Intake & Output 07/27/20 07/28/20 07/29/20 06:59 06:59 06:59 Intake Total 1750 Output Total 1200 Balance 550 Weight 57.606 kg General appearance: PRESENT: no acute distress Head exam: PRESENT: atraumatic, normocephalic Eye exam: PRESENT: EOMI, PERRLA Mouth exam: PRESENT: moist Neck exam: PRESENT: full ROM Respiratory exam: PRESENT: clear to auscultation chai, symmetrical, unlabored Cardiovascular exam: PRESENT: RRR, +S1, +S2 GI/Abdominal exam: PRESENT: normal bowel sounds, soft, tenderness - epi Neurological exam: PRESENT: other - lethargic, pinpoint pupils sluggishly reactive but equal Results Laboratory Results: 07/28/20 04:28 07/28/20 04:28 07/28/20 07/28/20 07/28/20 04:28 04:28 09:44 WBC 10.4 RBC 4.91 Hgb 14.7 Hct 43.7 MCV 89 MCH 29.9 MCHC 33.6 RDW 14.6 H Plt Count 234 Seg Neutrophils % 86.4 H Sodium 145.6 H Potassium 3.8 Chloride 104 Carbon Dioxide 27 Anion Gap 15 BUN 32 H Creatinine 1.68 H Est GFR ( Amer) 39 L Glucose 306 H Lactic Acid Calcium 10.3 H Total Bilirubin 0.7 AST 31 Alkaline Phosphatase 242 H Total Protein 8.1 Albumin 4.1 Lipase 74.2 Urine Color YELLOW Urine Appearance CLEAR Urine pH 6.0 Ur Specific [place] 1.018 Urine Protein >=500 H Urine Glucose (UA) >=500 H Urine Ketones NEGATIVE Urine Blood SMALL H Urine Nitrite NEGATIVE Ur Leukocyte Esterase NEGATIVE Urine WBC (Auto) 1 Urine RBC (Auto) 2 Blood Type Antibody Screen 07/28/20 07/28/20 12:10 13:18 WBC RBC Hgb Hct MCV MCH MCHC RDW Plt Count Seg Neutrophils % Sodium Potassium Chloride Carbon Dioxide Anion Gap BUN Creatinine Est GFR ( Amer) Glucose Lactic Acid 1.2 Calcium Total Bilirubin AST Alkaline Phosphatase Total Protein Albumin Lipase Urine Color Urine Appearance Urine pH Ur Specific [place] Urine Protein Urine Glucose (UA) Urine Ketones Urine Blood Urine Nitrite Ur Leukocyte Esterase Urine WBC (Auto) Urine RBC (Auto) Blood Type B POSITIVE Antibody Screen NEGATIVE 07/28/20 11:02 Troponin I 0.026 Impressions: Abdomen/Pelvis CTA 07/28/20 00:00 IMPRESSION: NO ABDOMINAL AORTIC ANEURYSM, DISSECTION OR SIGNIFICANT STENOSIS. NO SIGNIFICANT FINDINGS IN THE ABDOMEN. Chronic atrophic/dystrophic left kidney. Chronic dystrophic calcification left upper quadrant. Chest X-Ray 07/28/20 09:32 IMPRESSION: NO ACUTE RADIOGRAPHIC FINDING IN THE CHEST. Assessment and Plan - Diagnosis (1) GI bleed Qualifiers: GI bleed type/associated pathology: gastritis Is this a current diagnosis for this admission?: Yes Plan: - patient came in with coffee ground emesis and bloody stool - previous hx of GI bleed 10 years ago, not on aspirin or any blood thinner - hx of alcoholism - Hgb 14.7 baseline around 11 - VS normal - S/p EGD today showed gastritis no active ulcer - continue IV protonix for tonight switch to oral tomorrow - continue IV fluids -will keep her NPO for now because she is drowsy and start her on general diet tomorrow (2) Metabolic encephalopathy Is this a current diagnosis for this admission?: Yes Plan: - noted to be very lethargic on exam - received 10 mg IV morphine and 1 mg of ativan - pinpoint pupils sluggish but equally reactive - ddx 2/2 morphine and ativan or ICH from elevated BP - stat CT head ordered - neuro checks q4 hrs - s/p 1 dose of narcan. - keep NPO for now (3) Hypertensive emergency Is this a current diagnosis for this admission?: Yes Plan: - has been high before - trop 0.026, EKG sinus rhythm - current BP 198/102 - received labetalol 20 mg IV, metoprolol 10 mg IV, vasotec 1.25 IV - PRN vasotec 1.25 IV q6 - PRN labetalol 20 IV q2 - clonidine patch - goal systolic BP not less than 160, diastolic BP not less than 90 - repeat troponin (4) Type 2 diabetes mellitus Qualifiers: Diabetes mellitus assisted insulin use: without toddler lead teacher use Is this a current diagnosis for this admission?: Yes Plan: -on 5u of lispro with meals at home - put on SSI, accucheck q6, hypoglycemia protocol (5) Acute kidney injury Is this a current diagnosis for this admission?: Yes Plan: - Crea 1.68 which is around his baseline - will monitor (6) Alcoholism Is this a current diagnosis for this admission?: Yes Plan: - per patient last drink 9 days ago - PRN ativan for withdrawal (7) Elevated troponin Is this a current diagnosis for this admission?: Yes Plan: - trop 0.026, EKG sinus rhythm - will repeat - Time Time Spent with patient: 15-24 minutes Medications reviewed and adjusted accordingly: Yes Anticipated Discharge Disposition: Home, Self Care Anticipated Discharge Timeframe: tbd
[2020-07-28] MEDS: INSULIN LISPRO 100 UNIT/ML 3 ML VIAL SUBCUT SCH ×2 (18:33→23:13)
--- NOTE | 2020-07-28 18:36 | RADIOLOGY REPORT (SQ) ---
EXAM DESCRIPTION: CT HEAD WITHOUT IMAGES COMPLETED DATE/TIME: 07/28/2020 6:25 pm REASON FOR STUDY: altered mental status COMPARISON: 07/21/2017 TECHNIQUE: Axial images acquired through the brain without intravenous contrast. Images reviewed wi th bone, brain and subdural windows. Additional sagittal and coronal reconstructions were generated. Images stored on PACS. All CT scanners at this facility use dose modulation, iterative reconstruction, and/or weight based d osing when appropriate to reduce radiation dose to as low as reasonably achievable (ALARA). [facility]: Dose Right [facility]: CareDose [facility]: Dose Right [facility]: Teradose 4D [facility]: Smart TIME PLUS Q RADIATION DOSE: CT Rad equipment meets quality standard of care and radiation dose reduction techniq ues were employed. CTDIvol: 53.2 mGy. DLP: 911 mGy-cm. mGy. LIMITATIONS: None. FINDINGS: VENTRICLES: Normal size and contour. CEREBRUM: No masses. No hemorrhage. No midline shift. No evidence for acute infarction. Normal gra y/white matter differentiation. No areas of low density in the white matter. CEREBELLUM: No masses. No hemorrhage. No alteration of density. No evidence for acute infarction. EXTRAAXIAL SPACES: No fluid collections. No masses. ORBITS AND GLOBE: No intra- or extraconal masses. Normal contour of globe without masses. CALVARIUM: No fracture. PARANASAL SINUSES: No fluid or mucosal thickening. SOFT TISSUES: No mass or hematoma. OTHER: No other significant finding. IMPRESSION: NORMAL BRAIN CT WITHOUT CONTRAST. EVIDENCE OF ACUTE STROKE: NO. COMMENT: Quality ID # [id number]: Final reports with documentation of one or more dose reduction techniques (e.g., Automated exposure control, adjustment of the mA and/or kV according to patient size, use of iterative reconstruction technique) TECHNICAL DOCUMENTATION: JOB ID: [id number] 2010 [employer]- All Rights Reserved Reading location - IP/workstation name: [email or web address]
[2020-07-28] MEDS: PANTOPRAZOLE SODIUM 40 MG VIAL IV SCH ×2 (23:12→23:13)
--- NOTE | 2020-07-28 23:16 | EKG REPORT ---
SEVERITY:- OTHERWISE NORMAL ECG - SINUS RHYTHM BORDERLINE RIGHT AXIS DEVIATION NONSPECIFIC ST-T CHANGES : Confirmed by: Magali Leyva 28-Jul-2020 23:15:58
[2020-07-29] MEDS: LORAZEPAM INJ 2 MG/1 ML VIAL IV PRN ×4 (00:49→22:51)
[2020-07-29] MEDS: ONDANSETRON HCL INJ/PF 4 MG/2 ML SDV IV PRN ×2 (00:55→08:55)
[2020-07-29] MEDS: SUCRALFATE 1 GM TABLET PO SCH ×3 (05:18→17:10)
[2020-07-29] MEDS: PANTOPRAZOLE SODIUM 40 MG VIAL IV SCH ×5 (05:18→22:56)
[2020-07-29 05:43] LABS: ABSOLUTE LYMPHOCYTES (AUTO) 1.3 10^3/uL (0.5-4.7); ABSOLUTE MONOCYTES (AUTO) 0.7 10^3/uL (0.1-1.4); ABSOLUTE NEUT (AUTO) 8.1 10^3/uL (1.7-8.2); BASOPHILS % (AUTO) 0.3 % (0-2); EOSINOPHILS % (AUTO) 0.1 % (0-6); HEMATOCRIT 34.9 % (36.0-47.0); LYMPHOCYTES % (AUTO) 12.8 % (13-45); MEAN CORPUSCULAR HEMOGLOBIN 30.2 pg (27.0-33.4); MEAN CORPUSCULAR HGB CONC 33.8 g/dL (32.0-36.0); MEAN CORPUSCULAR VOLUME 89 fl (80-97); PLATELET COUNT 164 10^3/uL (150-450); RED BLOOD COUNT 3.91 10^6/uL (3.72-5.28); RED CELL DISTRIBUTION WIDTH 14.7 % (11.5-14.0); SEGMENTED NEUTROPHILS % (AUTO) 79.8 % (42-78); TOTAL CELLS COUNTED % (AUTO) 100 %; WHITE BLOOD COUNT 10.2 10^3/uL (4.0-10.5)
[2020-07-29 06:00] LABS: HEMOGLOBIN 11.8 g/dL (12.0-15.5)
[2020-07-29 06:15] LABS: ALBUMIN 2.8 g/dL (3.5-5.0); ALKALINE PHOSPHATASE 177 U/L (38-126); ANION GAP 6 (5-19); ASPARTATE AMINO TRANSFERASE 44 U/L (14-36); BILIRUBIN,DIRECT 0.2 mg/dL (0.0-0.4); BILIRUBIN,TOTAL 0.3 mg/dL (0.2-1.3); BLOOD UREA NITROGEN 29 mg/dL (7-20); CALCIUM 8.5 mg/dL (8.4-10.2); CARBON DIOXIDE 25 mmol/L (22-30); CHLORIDE 110 mmol/L (98-107); GLUCOSE 211 mg/dL (75-110); POTASSIUM 3.7 mmol/L (3.6-5.0); TOTAL PROTEIN 5.7 g/dL (6.3-8.2)
[2020-07-29] MEDS: INSULIN LISPRO 100 UNIT/ML 3 ML VIAL SUBCUT SCH ×3 (07:18→17:10)
[2020-07-29] MEDS ORDERED: NITROGLYCERIN/D5W 50 MG/250 ML RTUINJ IV PRN (08:26)
[2020-07-29] MEDS ORDERED: NORMAL SALINE 1000 ML 1,000 ML IV ONE (08:34)
[2020-07-29] MEDS ORDERED: METOCLOPRAMIDE HCL INJ/PF 10 MG/2 ML SDV IV ONE (08:35)
[2020-07-29] MEDS ORDERED: DIPHENHYDRAMINE HCL 50 MG/ML VIAL IV ONE (08:35)
[2020-07-29] MEDS: LABETALOL HCL INJ 20 MG/4 ML DISP.SYRIN IV PRN (08:59)
[2020-07-29] MEDS: METOPROLOL SUCCINATE 50 MG TAB.SR.24H PO SCH (10:07)
[2020-07-29] MEDS: NORMAL SALINE 1000 ML 1,000 ML IV PRN ×3 (10:15→20:30)
--- NOTE | 2020-07-29 10:23 | RADIOLOGY REPORT (SQ) ---
EXAM DESCRIPTION: U/S RETROPERITON (RENAL/AORTA) IMAGES COMPLETED DATE/TIME: 07/29/2020 9:53 am REASON FOR STUDY: ZEESHAN COMPARISON: CT scan TECHNIQUE: Dynamic and static grayscale images acquired of the kidneys and bladder and recorded on P ACS. Additional selected color Doppler and spectral images recorded. LIMITATIONS: None. FINDINGS: RIGHT KIDNEY: Normal size. Increase echogenicity with cortical thinning. No masses or hy dronephrosis. LEFT KIDNEY: 6 cm, atrophic. Increase echogenicity. No masses or hydronephrosis. BLADDER: Decompressed with Baer. OTHER FINDINGS: No other significant finding. IMPRESSION: Chronic medical renal disease. Atrophic left kidney. Bladder is now decompressed. TECHNICAL DOCUMENTATION: JOB ID: [id number] 2010 [employer]- All Rights Reserved Reading location - IP/workstation name: [email or web address]
[2020-07-29] MEDS ORDERED: AMLODIPINE BESYLATE 10 MG TABLET PO ONE (12:00)
[2020-07-29 15:43] LABS: URINE AMPHETAMINES SCREEN NEGATIVE; URINE BARBITURATES SCREEN NEGATIVE; URINE BENZODIAZEPINES SCREEN NEGATIVE; URINE COCAINE SCREEN NEGATIVE; URINE METHADONE SCREEN NEGATIVE; URINE PHENCYCLIDINE SCREEN NEGATIVE
[2020-07-29 15:49] LABS: URINE CREATININE 76.1 mg/dL (15-278)
[2020-07-29 15:50] LABS: URINE MARIJUANA (THC) SCREEN UNCONFIRMED POSITIVE
--- NOTE | 2020-07-29 16:32 | PDOC PROGRESS REPORT ---
Subjective Date:: 07/29/20 Subjective:: DEEPTHI MARQUEZ is a 50 year old female, 50-year-old female with a history of hypertension, type 2 diabetes, pancreatitis, GERD presents to the emergency room today for evaluation after she has been vomiting blood bloody stool for the last 24 hours. The patient was very sedated when I saw her in room 530 and I was not able to get any type of history from her. Per ED notes she came in due to coffee ground emesis and bloody stool for the last 24 hrs. She has a history of pancreatitis and was complaining of abdominal pain, she was given 10 mg of IV morphine in the ED along with 1 mg of ativan for withdrawal. I suspect this is why she is very drowsy. She was also noted to have elevated BP 194/105 hence she was given labetalol IV push. Dr. Gillis from surgery was called who performed an EGD which revealed gastritis of the fundus and body of the stomach with digested blood, no active ulcers seen. She was given IV fluids and IV protonix and was admitted for further evaluation and management. D2 hospital stay 07/29/20 Patient was seen and examined at bedside. Seems much more awake today. Her BP remained very high throughout the night and unfortunately the PRN medications were not given. I have restarted the nitro drip because of this. Per RN who talked to a family member, there was a concern that she might be doing drugs on top of the alcohol abuse. UDS +ve for marijuana and opiates. patient was given morphine during admission. She claims her last drink was new years and her BAL on admission was <10 however she is very agitated and tremulous which is typical for alcohol withdrawal. She is nauseous but no further episode of coffee ground emesis. Reason For Visit: GI BLEED Physical Exam Vital Signs: Temp Pulse Resp BP Pulse Ox 97.9 F 82 18 101/53 L 98 07/29/20 11:07 07/29/20 15:00 07/29/20 11:07 07/29/20 15:00 07/29/20 15:00 Intake & Output 07/28/20 07/29/20 07/30/20 06:59 06:59 06:59 Intake Total 3496 1067 Output Total 1750 250 Balance 1746 817 Weight 57.606 kg 55.4 kg General appearance: PRESENT: no acute distress, thin Head exam: PRESENT: atraumatic, normocephalic Eye exam: PRESENT: EOMI, PERRLA Mouth exam: PRESENT: moist Neck exam: PRESENT: full ROM Respiratory exam: PRESENT: clear to auscultation chai, symmetrical, unlabored Pulses: PRESENT: +2 pedal pulses bilateral GI/Abdominal exam: PRESENT: normal bowel sounds, soft. ABSENT: rebound, tenderness Extremities exam: PRESENT: full ROM Musculoskeletal exam: PRESENT: full ROM Neurological exam: PRESENT: alert, altered, awake Psychiatric exam: PRESENT: normal mood Skin exam: PRESENT: normal color Results Laboratory Results: 07/29/20 05:01 07/29/20 05:01 07/29/20 07/29/20 05:01 05:01 WBC 10.2 RBC 3.91 Hgb 11.8 L D Hct 34.9 L MCV 89 MCH 30.2 MCHC 33.8 RDW 14.7 H Plt Count 164 Seg Neutrophils % 79.8 H Sodium 141.4 Potassium 3.7 Chloride 110 H Carbon Dioxide 25 Anion Gap 6 BUN 29 H Creatinine 2.29 H Est GFR ( Amer) 27 L Glucose 211 H Calcium 8.5 Total Bilirubin 0.3 AST 44 H Alkaline Phosphatase 177 H Total Protein 5.7 L Albumin 2.8 L 07/28/20 07/28/20 07/28/20 11:02 20:12 21:19 Troponin I 0.026 Cancelled 0.040 07/29/20 11:43 Troponin I 0.031 Impressions: Abdomen/Pelvis CTA 07/28/20 00:00 IMPRESSION: NO ABDOMINAL AORTIC ANEURYSM, DISSECTION OR SIGNIFICANT STENOSIS. NO SIGNIFICANT FINDINGS IN THE ABDOMEN. Chronic atrophic/dystrophic left kidney. Chronic dystrophic calcification left upper quadrant. Head CT 07/28/20 00:00 IMPRESSION: NORMAL BRAIN CT WITHOUT CONTRAST. EVIDENCE OF ACUTE STROKE: NO. Chest X-Ray 07/28/20 09:32 IMPRESSION: NO ACUTE RADIOGRAPHIC FINDING IN THE CHEST. Renal Ultrasound 07/29/20 00:00 IMPRESSION: Chronic medical renal disease. Atrophic left kidney. Bladder is now decompressed. Assessment and Plan - Diagnosis (1) GI bleed Qualifiers: GI bleed type/associated pathology: gastritis Is this a current diagnosis for this admission?: Yes Plan: - patient came in with coffee ground emesis and bloody stool - previous hx of GI bleed 10 years ago, not on aspirin or any blood thinner - hx of alcoholism - Hgb 14.7 baseline around 11 - VS normal - S/p EGD today showed gastritis no active ulcer - continue IV protonix for tonight switch to oral tomorrow - continue IV fluids -will keep her NPO for now because she is drowsy and start her on general diet tomorrow (2) Metabolic encephalopathy Is this a current diagnosis for this admission?: Yes Plan: - IMPROVED - noted to be very lethargic on exam - received 10 mg IV morphine and 1 mg of ativan - pinpoint pupils sluggish but equally reactive - ddx 2/2 morphine and ativan or ICH from elevated BP - CT head negative - neuro checks q4 hrs - s/p 1 dose of narcan. - keep NPO for now (3) Hypertensive emergency Is this a current diagnosis for this admission?: Yes Plan: - has been high before - trop 0.02>0.04>0.03 EKG sinus rhythm - current BP 198/102 to 99/52 - received labetalol 20 mg IV, metoprolol 10 mg IV, vasotec 1.25 IV - PRN vasotec 1.25 IV q6 - PRN labetalol 20 IV q2 - clonidine patch - goal systolic BP not less than 160, diastolic BP not less than 90 - was briefly put back on nitro drip (4) Type 2 diabetes mellitus Qualifiers: Diabetes mellitus fpc insulin use: without manager land use Is this a current diagnosis for this admission?: Yes Plan: -on 5u of lispro with meals at home - put on SSI, accucheck q6, hypoglycemia protocol (5) Acute kidney injury Is this a current diagnosis for this admission?: Yes Plan: - Crea 1.68 which is around his baseline - will monitor (6) Alcoholism Is this a current diagnosis for this admission?: Yes Plan: - per patient last drink 9 days ago - PRN ativan for withdrawal (7) Elevated troponin Is this a current diagnosis for this admission?: Yes Plan: - trop 0.026>0.04>0.03, EKG sinus rhythm - likely due to elevated BP - will repeat (8) Alcohol withdrawal Qualifiers: Complication of substance-induced condition: with unspecified complication Qualified Code(s): F10.239 - Alcohol dependence with withdrawal, unspecified Is this a current diagnosis for this admission?: Yes Plan: - CIWA ar - MVI, folate, Vit b12 - Ativan PRN - Time Time Spent with patient: 25-34 minutes Medications reviewed and adjusted accordingly: Yes Anticipated Discharge Disposition: Home, Self Care Anticipated Discharge Timeframe: tbd
[2020-07-29] MEDS ORDERED: BENZOCAINE/MENTHOL SORE THROAT LOZENGE BUCCAL PRN (20:26)
[2020-07-30] MEDS: INSULIN LISPRO 100 UNIT/ML 3 ML VIAL SUBCUT SCH ×4 (00:09→17:01)
[2020-07-30] MEDS: SUCRALFATE 1 GM TABLET PO SCH ×4 (01:32→17:01)
[2020-07-30] MEDS: PANTOPRAZOLE SODIUM 40 MG VIAL IV SCH ×3 (05:55→17:02)
[2020-07-30 06:00] LABS: ABSOLUTE EOSINOPHILS # (AUTO) 0.1 10^3/uL (0.0-0.6); ABSOLUTE MONOCYTES (AUTO) 0.6 10^3/uL (0.1-1.4); ABSOLUTE NEUT (AUTO) 5.1 10^3/uL (1.7-8.2); BASOPHILS % (AUTO) 0.6 % (0-2); EOSINOPHILS % (AUTO) 0.7 % (0-6); HEMATOCRIT 32.5 % (36.0-47.0); HEMOGLOBIN 10.7 g/dL (12.0-15.5); LYMPHOCYTES % (AUTO) 25.9 % (13-45); MEAN CORPUSCULAR HEMOGLOBIN 29.4 pg (27.0-33.4); MEAN CORPUSCULAR HGB CONC 33.1 g/dL (32.0-36.0); MEAN CORPUSCULAR VOLUME 89 fl (80-97); MONOCYTES % (AUTO) 8.1 % (3-13); PLATELET COUNT 140 10^3/uL (150-450); RED BLOOD COUNT 3.65 10^6/uL (3.72-5.28); RED CELL DISTRIBUTION WIDTH 14.4 % (11.5-14.0); SEGMENTED NEUTROPHILS % (AUTO) 64.7 % (42-78); TOTAL CELLS COUNTED % (AUTO) 100 %; WHITE BLOOD COUNT 7.9 10^3/uL (4.0-10.5)
[2020-07-30 06:19] LABS: ALBUMIN 2.4 g/dL (3.5-5.0); ALKALINE PHOSPHATASE 132 U/L (38-126); ASPARTATE AMINO TRANSFERASE 40 U/L (14-36); BILIRUBIN,DIRECT 0.2 mg/dL (0.0-0.4); BILIRUBIN,TOTAL 0.5 mg/dL (0.2-1.3); BLOOD UREA NITROGEN 34 mg/dL (7-20); CALCIUM 8.3 mg/dL (8.4-10.2); GLUCOSE 172 mg/dL (75-110); POTASSIUM 3.7 mmol/L (3.6-5.0); TOTAL PROTEIN 5.2 g/dL (6.3-8.2)
[2020-07-30 06:24] LABS: CARBON DIOXIDE 25 mmol/L (22-30); CHLORIDE 110 mmol/L (98-107)
[2020-07-30 06:31] LABS: ANION GAP 3 (5-19)
[2020-07-30] MEDS: METOPROLOL SUCCINATE 50 MG TAB.SR.24H PO SCH (09:56)
[2020-07-30] MEDS: LORAZEPAM INJ 2 MG/1 ML VIAL IV PRN (09:56)
[2020-07-30 11:39] LABS: URINE CREATININE 75.4 mg/dL (15-278)
[2020-07-30 12:08] LABS: UR PRO/CREAT RATIO RESULT 12.1 mg/mg (0.0-0.2); URINE PROTEIN 908.7 mg/dL (<12)
[2020-07-30] MEDS: LABETALOL HCL INJ 20 MG/4 ML DISP.SYRIN IV PRN (13:48)
--- NOTE | 2020-07-30 13:51 | PDOC CONSULTATION ---
Consultation Consult Date: 07/30/20 Provider Consulted: Emigdio PINA Consult reason:: ZEESHAN History of Present Illness Admission Date/PCP: 07/28/20 11:18 LYLE ROBERSON DO History of Present Illness: DEEPTHI MARQUEZ is a 50 year old female, 50-year-old female with a history of hypertension, type 2 diabetes, CKD 3 with base creatinine of around 1.5, h/o Alcoholism, drub abuse, pancreatitis, GERD was admitted to the hospital through the ER where she came with history of hematemesis and bloody stool 1 days duration. She also said she was having of severe abdominal pains. She also has a history of being possibly an alcoholic but also history of drug abuse with a positive drug screen that was positive for opiates and marijuana. She has been monitored and treated for alcohol withdrawal and today when I see her she is apparently awake alert and oriented and able to talk and respond properly. She says she still has intermittent abdominal pains but she is n.p.o. and is wondering when she can start eating foods. She says her nausea vomiting is a whole lot better. She has gone to have an upper GI endoscopy which showed gastritis/duodenitis with no evidences of any ulcer or Kathleen-Nuñez. Vital signs initially showed that she was severely hypertensive but currently her blood pressure is better. She is making decent amounts of urine output.Admission labs were reviewed to today's labs. Initial hemoglobin was 14.7 and today 10.7, initial admission labs showed BUN/creatinine 32/1.6 and today 34/3.1. Past Medical History Cardiac Medical History: Denies: Myocardial Infarction Pulmonary Medical History: Reports: Asthma - DOES NOT USE INHALERS Denies: Tuberculosis Neurological Medical History: Denies: Seizures Endocrine Medical History: Reports: Diabetes Mellitus Type 1, Diabetes Mellitus Type 2 GI Medical History: Reports: Gastroesophageal Reflux Disease Denies: Hepatitis, Hiatal Hernia Musculoskeltal Medical History: Reports: Arthritis Psychiatric Medical History: Reports: Depression Past Surgical History Past Surgical History: Reports: Section, Orthopedic Surgery - left leg surgery Denies: Appendectomy, Cholecystectomy, Coronary Artery Bypass Graft, Gastric Bypass Surgery, Herniorrhaphy, Hysterectomy, Mastectomy, Pacemaker, Tonsillectomy, Tubal Ligation Social History Smoking Status: Current Every Day Smoker Frequency of Alcohol Use: Occasional Hx Recreational Drug Use: Yes Drugs: Marijuana Hx Prescription Drug Abuse: No Family History Parental Family History Reviewed: Yes - Negative for ESRD Children Family History Reviewed: No Sibling(s) Family History Reviewed.: No Medication/Allergy Home Medications: Amlodipine Besylate [Norvasc 10 mg Tablet] 10 mg PO DAILY 07/07/20 Insulin Lispro [Humalog Insulin (Lispro) 100 unit/mL] 5 units SUBCUT TID 07/07/20 Metoprolol Succinate [Toprol Xl 50 mg Tab.sr] 50 mg PO DAILY 07/28/20 Allergies/Adverse Reactions: Penicillins Allergy (Severe, Verified 07/07/20 04:47) SOB, ITCHING Sulfa (Sulfonamide Antibiotics) Allergy (Severe, Verified 07/07/20 04:47) SOB, ITCHING hydromorphone HCl [From Dilaudid] Allergy (Intermediate, Verified 07/07/20 04:47) ITCHING Review of Systems Constitutional: PRESENT: fatigue, weakness. ABSENT: fever(s) Cardiovascular: ABSENT: chest pain, edema Respiratory: ABSENT: dyspnea, hemoptysis Gastrointestinal: PRESENT: abdominal pain, diarrhea, nausea, vomiting Genitourinary: ABSENT: dysuria, hematuria Integumentary: ABSENT: pruritus, rash Neurological: ABSENT: abnormal speech, confusion, focal weakness, frequent falls Endocrine: ABSENT: polyuria Hematologic/Lymphatic: ABSENT: easy bruising, lymphadenopathy Physical Exam Vital Signs: Temp Pulse Resp BP Pulse Ox 97.9 F 79 19 188/90 H 100 07/30/20 11:54 07/30/20 11:54 07/30/20 11:54 07/30/20 11:54 07/30/20 11:54 Intake & Output 07/29/20 07/30/20 07/31/20 06:59 06:59 06:59 Intake Total 3496 2575 Output Total 1750 605 Balance 1746 1970 Weight 55.4 kg 50.9 kg General appearance: PRESENT: no acute distress, cooperative, disheveled Eye exam: PRESENT: EOMI, PERRLA. ABSENT: scleral icterus Mouth exam: PRESENT: neck supple. ABSENT: moist Neck exam: ABSENT: meningismus, tenderness, thyromegaly, tracheal deviation Respiratory exam: PRESENT: clear to auscultation chai, decreased breath sounds. ABSENT: crackles Cardiovascular exam: PRESENT: +S1, +S2. ABSENT: rubs GI/Abdominal exam: PRESENT: normal bowel sounds, soft, tenderness - Mild around the periumbilical region.. ABSENT: organomegaly Extremities exam: ABSENT: pedal edema Neurological exam: PRESENT: alert, awake, oriented to person, oriented to place, oriented to time Psychiatric exam: PRESENT: flat affect Skin exam: PRESENT: dry. ABSENT: cyanosis, erythema, mottled, rash Results Laboratory Results: 07/30/20 05:35 07/30/20 05:35 07/30/20 07/30/20 05:35 05:35 WBC 7.9 RBC 3.65 L Hgb 10.7 L Hct 32.5 L MCV 89 MCH 29.4 MCHC 33.1 RDW 14.4 H Plt Count 140 L Seg Neutrophils % 64.7 Sodium 137.7 Potassium 3.7 Chloride 110 H Carbon Dioxide 25 Anion Gap 3 L BUN 34 H Creatinine 3.17 H Est GFR ( Amer) 19 L Glucose 172 H Calcium 8.3 L Total Bilirubin 0.5 AST 40 H Alkaline Phosphatase 132 H Total Protein 5.2 L Albumin 2.4 L 07/28/20 07/28/20 07/28/20 11:02 20:12 21:19 Troponin I 0.026 Cancelled 0.040 07/29/20 11:43 Troponin I 0.031 Impressions: Abdomen/Pelvis CTA 07/28/20 00:00 IMPRESSION: NO ABDOMINAL AORTIC ANEURYSM, DISSECTION OR SIGNIFICANT STENOSIS. NO SIGNIFICANT FINDINGS IN THE ABDOMEN. Chronic atrophic/dystrophic left kidney. Chronic dystrophic calcification left upper quadrant. Head CT 07/28/20 00:00 IMPRESSION: NORMAL BRAIN CT WITHOUT CONTRAST. EVIDENCE OF ACUTE STROKE: NO. Chest X-Ray 07/28/20 09:32 IMPRESSION: NO ACUTE RADIOGRAPHIC FINDING IN THE CHEST. Renal Ultrasound 07/29/20 00:00 IMPRESSION: Chronic medical renal disease. Atrophic left kidney. Bladder is now decompressed. Assessment & Plan - Diagnosis (1) Acute kidney injury Is this a current diagnosis for this admission?: Yes Plan: Nonoliguric. Patient has got underlying CKD stage III with base creatinine around 1.5 in the background of an atrophic left kidney and uncontrolled hypertension and uncontrolled diabetes. Additional factors include contrast nephropathy when she had a CTA of abdomen to exclude possibility of dissecting aneurysm. At this point and continue with IV fluid hydration. No acute indications for renal replacements. Continue to monitor.Please dose medications for GFR of less than 25 cc/min and avoid nephrotoxic drugs. (2) Hypertensive emergency Is this a current diagnosis for this admission?: Yes Plan: Patient's blood pressure is still labile. We will add amlodipine on top of current medications. (3) Coffee ground emesis Plan: Patient has had a EGD that shows gastritis and duodenitis. Continue on current guidelines. Patient seems to be getting over her episodes of nausea and vomiting. Thankfully there is no evidences of any Kathleen-Nuñez. (4) Type 2 diabetes mellitus Qualifiers: Diabetes mellitus detention insulin use: without detention use Is this a current diagnosis for this admission?: Yes Plan: As per hospitalist. (5) Anemia Plan: Admission hemoglobin on the ninth was 14.7 and today is 11.7. Monitor closely. (6) CKD (chronic kidney disease) stage 3, GFR 30-59 ml/min Qualifiers: Chronic kidney disease stage 3 subtype: stage 3a (GFR 45-59) Qualified Code(s): N18.31 - Chronic kidney disease, stage 3a Plan: Patient has got underlying CKD in the background of hypertension/diabetic kidney disease with nephrotic proteinuria of 12 . Base creatinine is 1.5. Also has atrophic left kidney. (7) Dehydration Plan: Continue with IV fluids.Adjust rate. (8) Diarrhea Qualifiers: Diarrhea type: unspecified type Qualified Code(s): R19.7 - Diarrhea, unspecified Plan: Presently getting better. Her nausea vomiting is also improving markedly. She is asking for food which is a good sign. (9) Hematemesis Qualifiers: Nausea presence: with nausea Qualified Code(s): K92.0 - Hematemesis Plan: EGD showing gastritis/duodenitis. Await biopsy for ruling out Helicobacter.Apparently no history of any NSAIDs. (10) Marijuana dependence Plan: Status quo (11) Metabolic encephalopathy Is this a current diagnosis for this admission?: Yes Plan: Initially patient had altered mental status which possibly was multifactorial including drug/alcohol effects/hypertensive encephalopathy. (12) Proteinuria Plan: Current UPC was 12/nephrotic. (13) Alcoholism Is this a current diagnosis for this admission?: Yes Plan: Monitor for withdrawal.
[2020-07-30] MEDS ORDERED: PANTOPRAZOLE SODIUM 40 MG VIAL IV ONE (16:50)
[2020-07-30] MEDS: NORMAL SALINE 1000 ML 1,000 ML IV PRN ×2 (17:32→22:14)
--- NOTE | 2020-07-30 19:19 | PDOC PROGRESS REPORT ---
Subjective Date:: 07/30/20 Subjective:: DEEPTHI MARQUEZ is a 50 year old female, 50-year-old female with a history of hypertension, type 2 diabetes, pancreatitis, GERD presents to the emergency room today for evaluation after she has been vomiting blood bloody stool for the last 24 hours. The patient was very sedated when I saw her in room 530 and I was not able to get any type of history from her. Per ED notes she came in due to coffee ground emesis and bloody stool for the last 24 hrs. She has a history of pancreatitis and was complaining of abdominal pain, she was given 10 mg of IV morphine in the ED along with 1 mg of ativan for withdrawal. I suspect this is why she is very drowsy. She was also noted to have elevated BP 194/105 hence she was given labetalol IV push. Dr. Gillis from surgery was called who performed an EGD which revealed gastritis of the fundus and body of the stomach with digested blood, no active ulcers seen. She was given IV fluids and IV protonix and was admitted for further evaluation and management. D2 hospital stay 07/29/20 Patient was seen and examined at bedside. Seems much more awake today. Her BP remained very high throughout the night and unfortunately the PRN medications were not given. I have restarted the nitro drip because of this. Per RN who talked to a family member, there was a concern that she might be doing drugs on top of the alcohol abuse. UDS +ve for marijuana and opiates. patient was given morphine during admission. She claims her last drink was new years and her BAL on admission was <10 however she is very agitated and tremulous which is typical for alcohol withdrawal. She is nauseous but no further episode of coffee ground emesis. Reason For Visit: GI BLEED Physical Exam Vital Signs: Temp Pulse Resp BP Pulse Ox 98.9 F 86 16 173/81 H 96 07/30/20 16:06 07/30/20 16:06 07/30/20 16:06 07/30/20 16:06 07/30/20 16:06 Intake & Output 07/29/20 07/30/20 07/31/20 06:59 06:59 06:59 Intake Total 3496 2575 1000 Output Total 1750 605 Balance 1746 1970 1000 Weight 55.4 kg 50.9 kg General appearance: PRESENT: no acute distress, cooperative Head exam: PRESENT: atraumatic, normocephalic Eye exam: PRESENT: EOMI, PERRLA Mouth exam: PRESENT: moist Neck exam: PRESENT: full ROM Respiratory exam: PRESENT: clear to auscultation chai, symmetrical, unlabored Cardiovascular exam: PRESENT: RRR, +S1, +S2 Pulses: PRESENT: +2 pedal pulses bilateral GI/Abdominal exam: PRESENT: normal bowel sounds, soft. ABSENT: rebound, tenderness Extremities exam: PRESENT: full ROM Musculoskeletal exam: PRESENT: full ROM Neurological exam: PRESENT: alert, awake, oriented to person, oriented to place, oriented to time, oriented to situation Psychiatric exam: PRESENT: normal mood Skin exam: PRESENT: normal color Results Laboratory Results: 07/30/20 05:35 07/30/20 05:35 07/30/20 07/30/20 05:35 05:35 WBC 7.9 RBC 3.65 L Hgb 10.7 L Hct 32.5 L MCV 89 MCH 29.4 MCHC 33.1 RDW 14.4 H Plt Count 140 L Seg Neutrophils % 64.7 Sodium 137.7 Potassium 3.7 Chloride 110 H Carbon Dioxide 25 Anion Gap 3 L BUN 34 H Creatinine 3.17 H Est GFR ( Amer) 19 L Glucose 172 H Calcium 8.3 L Total Bilirubin 0.5 AST 40 H Alkaline Phosphatase 132 H Total Protein 5.2 L Albumin 2.4 L 07/28/20 07/28/20 07/28/20 11:02 20:12 21:19 Troponin I 0.026 Cancelled 0.040 07/29/20 11:43 Troponin I 0.031 Impressions: Abdomen/Pelvis CTA 07/28/20 00:00 IMPRESSION: NO ABDOMINAL AORTIC ANEURYSM, DISSECTION OR SIGNIFICANT STENOSIS. NO SIGNIFICANT FINDINGS IN THE ABDOMEN. Chronic atrophic/dystrophic left kidney. Chronic dystrophic calcification left upper quadrant. Head CT 07/28/20 00:00 IMPRESSION: NORMAL BRAIN CT WITHOUT CONTRAST. EVIDENCE OF ACUTE STROKE: NO. Chest X-Ray 07/28/20 09:32 IMPRESSION: NO ACUTE RADIOGRAPHIC FINDING IN THE CHEST. Renal Ultrasound 07/29/20 00:00 IMPRESSION: Chronic medical renal disease. Atrophic left kidney. Bladder is now decompressed. Assessment and Plan - Diagnosis (1) GI bleed Qualifiers: GI bleed type/associated pathology: gastritis Is this a current diagnosis for this admission?: Yes Plan: - patient came in with coffee ground emesis and bloody stool - previous hx of GI bleed 10 years ago, not on aspirin or any blood thinner - hx of alcoholism - Hgb 14.7 baseline around 11 - VS normal - S/p EGD today showed gastritis no active ulcer - continue IV protonix for tonight switch to oral tomorrow - continue IV fluids -will keep her NPO for now because she is drowsy and start her on general diet tomorrow (2) Acute kidney injury Is this a current diagnosis for this admission?: Yes Plan: - Crea 1.68>3.17 - +ve proteinuria in urine - Fena showed intrinsic renal - US renal chronic medical renal disease , atrophic left kidney - urine protein/crea - nephro consult (3) Metabolic encephalopathy Is this a current diagnosis for this admission?: Yes Plan: - IMPROVED - noted to be very lethargic on exam - received 10 mg IV morphine and 1 mg of ativan - pinpoint pupils sluggish but equally reactive - ddx 2/2 morphine and ativan or ICH from elevated BP - CT head negative - neuro checks q4 hrs - s/p 1 dose of narcan. - keep NPO for now (4) Hypertensive emergency Is this a current diagnosis for this admission?: Yes Plan: - has been high before - trop 0.02>0.04>0.03 EKG sinus rhythm - current BP 198/102 to 99/52 - received labetalol 20 mg IV, metoprolol 10 mg IV, vasotec 1.25 IV - PRN vasotec 1.25 IV q6 - PRN labetalol 20 IV q2 - clonidine patch - goal systolic BP not less than 160, diastolic BP not less than 90 - was briefly put back on nitro drip (5) Type 2 diabetes mellitus Qualifiers: Diabetes mellitus manager long term care insulin use: without manager long term care use Is this a current diagnosis for this admission?: Yes Plan: -on 5u of lispro with meals at home - put on SSI, accucheck q6, hypoglycemia protocol (6) Alcoholism Is this a current diagnosis for this admission?: Yes Plan: - per patient last drink 9 days ago - PRN ativan for withdrawal (7) Elevated troponin Is this a current diagnosis for this admission?: Yes Plan: - trop 0.026>0.04>0.03, EKG sinus rhythm - likely due to elevated BP - will repeat (8) Alcohol withdrawal Qualifiers: Complication of substance-induced condition: with unspecified complication Qualified Code(s): F10.239 - Alcohol dependence with withdrawal, unspecified Is this a current diagnosis for this admission?: Yes Plan: - CIWA ar - MVI, folate, Vit b12 - Ativan PRN - Time Time Spent with patient: 25-34 minutes Medications reviewed and adjusted accordingly: Yes Anticipated Discharge Disposition: Home with Home Health Anticipated Discharge Timeframe: tbd
[2020-07-30] MEDS: ACETAMINOPHEN 325 MG TABLET PO PRN (20:59)
[2020-07-30] MEDS: AMLODIPINE BESYLATE 10 MG TABLET PO SCH (22:06)
[2020-07-30] MEDS ORDERED: INSULIN LISPRO 100 UNIT/ML 3 ML VIAL SUBCUT ONE (23:15)
[2020-07-31] MEDS: SUCRALFATE 1 GM TABLET PO SCH ×4 (00:09→17:01)
[2020-07-31] MEDS: ACETAMINOPHEN 325 MG TABLET PO PRN (04:18)
[2020-07-31] MEDS: PANTOPRAZOLE SODIUM 40 MG VIAL IV SCH ×2 (05:18→17:00)
[2020-07-31 06:34] LABS: ABSOLUTE EOSINOPHILS # (AUTO) 0.2 10^3/uL (0.0-0.6); ABSOLUTE LYMPHOCYTES (AUTO) 1.5 10^3/uL (0.5-4.7); ABSOLUTE MONOCYTES (AUTO) 0.6 10^3/uL (0.1-1.4); ABSOLUTE NEUT (AUTO) 3.6 10^3/uL (1.7-8.2); BASOPHILS % (AUTO) 0.4 % (0-2); EOSINOPHILS % (AUTO) 2.7 % (0-6); HEMATOCRIT 29.7 % (36.0-47.0); HEMOGLOBIN 10.2 g/dL (12.0-15.5); LYMPHOCYTES % (AUTO) 25.8 % (13-45); MEAN CORPUSCULAR HEMOGLOBIN 30.2 pg (27.0-33.4); MEAN CORPUSCULAR HGB CONC 34.3 g/dL (32.0-36.0); MEAN CORPUSCULAR VOLUME 88 fl (80-97); MONOCYTES % (AUTO) 10.1 % (3-13); PLATELET COUNT 116 10^3/uL (150-450); RED BLOOD COUNT 3.37 10^6/uL (3.72-5.28); RED CELL DISTRIBUTION WIDTH 14.3 % (11.5-14.0); TOTAL CELLS COUNTED % (AUTO) 100 %; WHITE BLOOD COUNT 5.8 10^3/uL (4.0-10.5)
[2020-07-31 07:01] LABS: ALBUMIN 2.2 g/dL (3.5-5.0); ALKALINE PHOSPHATASE 123 U/L (38-126); ASPARTATE AMINO TRANSFERASE 32 U/L (14-36); BILIRUBIN,DIRECT 0.2 mg/dL (0.0-0.4); BILIRUBIN,TOTAL 0.4 mg/dL (0.2-1.3); BLOOD UREA NITROGEN 38 mg/dL (7-20); CARBON DIOXIDE 21 mmol/L (22-30); CHLORIDE 109 mmol/L (98-107); GLUCOSE 168 mg/dL (75-110); POTASSIUM 3.6 mmol/L (3.6-5.0); TOTAL PROTEIN 4.7 g/dL (6.3-8.2)
[2020-07-31 07:10] LABS: ANION GAP 5 (5-19)
[2020-07-31] MEDS: NORMAL SALINE 1000 ML 1,000 ML IV PRN (08:07)
[2020-07-31] MEDS: INSULIN LISPRO 100 UNIT/ML 3 ML VIAL SUBCUT SCH ×4 (08:07→22:00)
[2020-07-31] MEDS: METOPROLOL SUCCINATE 50 MG TAB.SR.24H PO SCH (09:03)
[2020-07-31] MEDS: AMLODIPINE BESYLATE 10 MG TABLET PO SCH (09:03)
[2020-07-31] MEDS: LORAZEPAM INJ 2 MG/1 ML VIAL IV PRN (09:03)
[2020-07-31] MEDS: LABETALOL HCL INJ 20 MG/4 ML DISP.SYRIN IV PRN (12:08)
--- NOTE | 2020-07-31 12:51 | PDOC PROGRESS REPORT ---
Subjective Date:: 07/31/20 Reason For Visit: Patient seen today. She is sitting quite comfortably in her bed with her sister by her side. She has been begun on liquid and semisolid diet which she apparently tolerated. However she is complaining of mild to moderate abdominal pains but seems to be in no distress. She denies history nausea vomiting. She is got good urine output through Baer catheter. Labs and medications were reviewed. Steady renal numbers. Physical Exam Vital Signs: Temp Pulse Resp BP Pulse Ox 97.8 F 71 19 193/105 H 100 07/31/20 11:45 07/31/20 11:45 07/31/20 11:45 07/31/20 11:45 07/31/20 11:45 Intake & Output 07/30/20 07/31/20 08/01/20 06:59 06:59 06:59 Intake Total 2575 3798 Output Total 605 2100 Balance 1970 1698 Weight 50.9 kg 44.2 kg Respiratory exam: PRESENT: clear to auscultation chai, decreased breath sounds. ABSENT: crackles Cardiovascular exam: PRESENT: +S1, +S2. ABSENT: rubs GI/Abdominal exam: PRESENT: normal bowel sounds, soft, tenderness - Mild around the periumbilical region.. ABSENT: organomegaly Neurological exam: PRESENT: alert, awake, oriented to person Psychiatric exam: PRESENT: appropriate affect Results Laboratory Results: 07/31/20 05:46 07/31/20 05:46 07/31/20 07/31/20 05:46 05:46 WBC 5.8 RBC 3.37 L Hgb 10.2 L Hct 29.7 L MCV 88 MCH 30.2 MCHC 34.3 RDW 14.3 H Plt Count 116 L Seg Neutrophils % 61.0 Sodium 135.0 L Potassium 3.6 Chloride 109 H Carbon Dioxide 21 L Anion Gap 5 BUN 38 H Creatinine 3.32 H Est GFR ( Amer) 18 L Glucose 168 H Calcium 8.0 L Total Bilirubin 0.4 AST 32 Alkaline Phosphatase 123 Total Protein 4.7 L Albumin 2.2 L 07/28/20 07/28/20 07/28/20 11:02 20:12 21:19 Troponin I 0.026 Cancelled 0.040 07/29/20 11:43 Troponin I 0.031 Impressions: Abdomen/Pelvis CTA 07/28/20 00:00 IMPRESSION: NO ABDOMINAL AORTIC ANEURYSM, DISSECTION OR SIGNIFICANT STENOSIS. NO SIGNIFICANT FINDINGS IN THE ABDOMEN. Chronic atrophic/dystrophic left kidney. Chronic dystrophic calcification left upper quadrant. Head CT 07/28/20 00:00 IMPRESSION: NORMAL BRAIN CT WITHOUT CONTRAST. EVIDENCE OF ACUTE STROKE: NO. Chest X-Ray 07/28/20 09:32 IMPRESSION: NO ACUTE RADIOGRAPHIC FINDING IN THE CHEST. Renal Ultrasound 07/29/20 00:00 IMPRESSION: Chronic medical renal disease. Atrophic left kidney. Bladder is now decompressed. Assessment & Plan - Diagnosis (1) Acute kidney injury Is this a current diagnosis for this admission?: Yes Plan: Nonoliguric. Patient has got underlying CKD stage III with base creatinine around 1.5 in the background of an atrophic left kidney and uncontrolled hypertension and uncontrolled diabetes. Additional factors include contrast nephropathy when she had a CTA of abdomen to exclude possibility of dissecting aneurysm. At this point and continue with IV fluid hydration. No acute indications for renal replacements. Continue to monitor.Please dose medications for GFR of less than 25 cc/min and avoid nephrotoxic drugs. (2) Hypertensive emergency Is this a current diagnosis for this admission?: Yes Plan: Patient's blood pressure is better currently. (3) Coffee ground emesis Plan: Patient has had a EGD that shows gastritis and duodenitis. Continue on current guidelines. Patient seems to be getting over her episodes of nausea and v omiting. Thankfully there is no evidences of any Kathleen-Nuñez.Follow up for H.Pylori. 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 (5) Anemia Plan: Admission hemoglobin on the ninth was 14.7 and today is 10.2/11.7. Monitor closely. (6) CKD (chronic kidney disease) stage 3, GFR 30-59 ml/min Qualifiers: Chronic kidney disease stage 3 subtype: stage 3a (GFR 45-59) Qualified Code(s): N18.31 - Chronic kidney disease, stage 3a Plan: Patient has got underlying CKD in the background of hypertension/diabetic kidney disease with nephrotic proteinuria of 12 . Base creatinine is 1.5. Also has atrophic left kidney. (7) Dehydration Plan: Continue with IV fluids.Adjust rate. (8) Diarrhea Qualifiers: Diarrhea type: unspecified type Qualified Code(s): R19.7 - Diarrhea, unspecified Plan: Presently getting better. Her nausea vomiting is also improving markedly. She is asking for food which is a good sign. (9) Hematemesis Qualifiers: Nausea presence: with nausea Qualified Code(s): K92.0 - Hematemesis Plan: EGD showing gastritis/duodenitis. Await biopsy for ruling out Helicobac ter.Apparently no history of any NSAIDs. (10) Marijuana dependence Plan: Status quo (11) Metabolic encephalopathy Is this a current diagnosis for this admission?: Yes Plan: Initially patient had altered mental status which possibly was multifactorial including drug/alcohol effects/hypertensive encephalopathy. (12) Proteinuria Plan: Current UPC was 12/nephrotic. (13) Alcoholism Is this a current diagnosis for this admission?: Yes Plan: Monitor for withdrawal.She however denies alcoholism.
--- NOTE | 2020-07-31 13:47 | PDOC PROGRESS REPORT ---
Subjective Date:: 07/31/20 Subjective:: DEEPTHI MARQUEZ is a 50 year old female, 50-year-old female with a history of hypertension, type 2 diabetes, pancreatitis, GERD presents to the emergency room today for evaluation after she has been vomiting blood bloody stool for the last 24 hours. The patient was very sedated when I saw her in room 530 and I was not able to get any type of history from her. Per ED notes she came in due to coffee ground emesis and bloody stool for the last 24 hrs. She has a history of pancreatitis and was complaining of abdominal pain, she was given 10 mg of IV morphine in the ED along with 1 mg of ativan for withdrawal. I suspect this is why she is very drowsy. She was also noted to have elevated BP 194/105 hence she was given labetalol IV push. Dr. Gillis from surgery was called who performed an EGD which revealed gastritis of the fundus and body of the stomach with digested blood, no active ulcers seen. She was given IV fluids and IV protonix and was admitted for further evaluation and management. D2 hospital stay 07/29/20 Patient was seen and examined at bedside. Seems much more awake today. Her BP remained very high throughout the night and unfortunately the PRN medications were not given. I have restarted the nitro drip because of this. Per RN who talked to a family member, there was a concern that she might be doing drugs on top of the alcohol abuse. UDS +ve for marijuana and opiates. patient was given morphine during admission. She claims her last drink was new years and her BAL on admission was <10 however she is very agitated and tremulous which is typical for alcohol withdrawal. She is nauseous but no further episode of coffee ground emesis. D3 07/30/20. Patient still complains of nausea and abdominal pain but is also demanding to eat. Creatinine continues to trend up nephrology consulted for input. She keeps requesting pain medications. BP more manageable today. D4 hospital stay. Patient was seen and examined at bedside. Again demanding that she wants to eat despite having stomach aches when she does. Crea still trending up however she is making good urine. Continue IV fluids per nephro. I told her she can have some grits but I am hesitant to put her on a regular diet. Would avoid opiates as well because of her kidney function and I also suspect she may be abusing pain opiates outside. Reason For Visit: GI BLEED Physical Exam Vital Signs: Temp Pulse Resp BP Pulse Ox 97.8 F 71 19 193/105 H 100 07/31/20 11:45 07/31/20 11:45 07/31/20 11:45 07/31/20 11:45 07/31/20 11:45 Intake & Output 07/30/20 07/31/20 08/01/20 06:59 06:59 06:59 Intake Total 2575 3798 Output Total 605 2100 Balance 1970 1698 Weight 50.9 kg 44.2 kg General appearance: PRESENT: no acute distress, thin Head exam: PRESENT: atraumatic, normocephalic Eye exam: PRESENT: EOMI, PERRLA Mouth exam: PRESENT: moist Neck exam: PRESENT: full ROM Respiratory exam: PRESENT: clear to auscultation chai, symmetrical, unlabored Cardiovascular exam: PRESENT: RRR, +S1, +S2 Pulses: PRESENT: +2 pedal pulses bilateral GI/Abdominal exam: PRESENT: normal bowel sounds, soft. ABSENT: rebound, tenderness Extremities exam: PRESENT: full ROM Musculoskeletal exam: PRESENT: full ROM Neurological exam: PRESENT: alert, awake, oriented to person, oriented to place, oriented to time, oriented to situation Psychiatric exam: PRESENT: normal mood Skin exam: PRESENT: normal color Results Laboratory Results: 07/31/20 05:46 07/31/20 05:46 07/31/20 07/31/20 05:46 05:46 WBC 5.8 RBC 3.37 L Hgb 10.2 L Hct 29.7 L MCV 88 MCH 30.2 MCHC 34.3 RDW 14.3 H Plt Count 116 L Seg Neutrophils % 61.0 Sodium 135.0 L Potassium 3.6 Chloride 109 H Carbon Dioxide 21 L Anion Gap 5 BUN 38 H Creatinine 3.32 H Est GFR ( Amer) 18 L Glucose 168 H Calcium 8.0 L Total Bilirubin 0.4 AST 32 Alkaline Phosphatase 123 Total Protein 4.7 L Albumin 2.2 L 07/28/20 07/28/20 07/28/20 11:02 20:12 21:19 Troponin I 0.026 Cancelled 0.040 07/29/20 11:43 Troponin I 0.031 Impressions: Abdomen/Pelvis CTA 07/28/20 00:00 IMPRESSION: NO ABDOMINAL AORTIC ANEURYSM, DISSECTION OR SIGNIFICANT STENOSIS. NO SIGNIFICANT FINDINGS IN THE ABDOMEN. Chronic atrophic/dystrophic left kidney. Chronic dystrophic calcification left upper quadrant. Head CT 07/28/20 00:00 IMPRESSION: NORMAL BRAIN CT WITHOUT CONTRAST. EVIDENCE OF ACUTE STROKE: NO. Chest X-Ray 07/28/20 09:32 IMPRESSION: NO ACUTE RADIOGRAPHIC FINDING IN THE CHEST. Renal Ultrasound 07/29/20 00:00 IMPRESSION: Chronic medical renal disease. Atrophic left kidney. Bladder is now decompressed. Assessment and Plan - Diagnosis (1) Acute kidney injury Is this a current diagnosis for this admission?: Yes Plan: - Crea 1.68>3.17>3.21 - +ve proteinuria in urine - Fena showed intrinsic renal - US renal chronic medical renal disease , atrophic left kidney - urine protein/crea - nephro consult suggest to continue IV fluids and monitor crea (2) GI bleed Qualifiers: GI bleed type/associated pathology: gastritis Is this a current diagnosis for this admission?: Yes Plan: - patient came in with coffee ground emesis and bloody stool - previous hx of GI bleed 10 years ago, not on aspirin or any blood thinner - hx of alcoholism - Hgb 14.7>10.2 baseline around 11 - VS normal - S/p EGD today showed gastritis no active ulcer - continue protonix - continue IV fluids - diet progressed to full liquid (3) Metabolic encephalopathy Is this a current diagnosis for this admission?: Yes Plan: - IMPROVED -received 10 mg IV morphine and 1 mg of ativan - likely from 10 mg of morphine she got in the ED - CT head negative - s/p 1 dose of narcan. 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: without penitentiary use Is this a current diagnosis for this admission?: Yes Plan: -on 5u of lispro with meals at home - put on SSI, accucheck q6, hypoglycemia protocol (6) Alcoholism Is this a current diagnosis for this admission?: Yes Plan: - per patient last drink 9 days ago - PRN ativan for withdrawal (7) Elevated troponin Is this a current diagnosis for this admission?: Yes Plan: - trop 0.026>0.04>0.03, EKG sinus rhythm - likely due to elevated BP (8) Alcohol withdrawal Qualifiers: Complication of substance-induced condition: with unspecified complication Qualified Code(s): F10.239 - Alcohol dependence with withdrawal, unspecified Is this a current diagnosis for this admission?: Yes Plan: - LACHO lucio - MVI, folate, Vit b12 - Ativan PRN - Time Time Spent with patient: 25-34 minutes Medications reviewed and adjusted accordingly: Yes Anticipated Discharge Disposition: Home, Self Care Anticipated Discharge Timeframe: tbd
[2020-07-31] MEDS ORDERED: METOCLOPRAMIDE HCL INJ/PF 10 MG/2 ML SDV ONE (16:51)
[2020-07-31] MEDS: METOCLOPRAMIDE HCL INJ/PF 10 MG/2 ML SDV IV SCH (17:00)
[2020-08-01] MEDS: SUCRALFATE 1 GM TABLET PO SCH ×5 (01:51→23:29)
[2020-08-01] MEDS: METOCLOPRAMIDE HCL INJ/PF 10 MG/2 ML SDV IV SCH ×6 (01:56→23:29)
[2020-08-01 06:28] LABS: HEMOGLOBIN 10.2 g/dL (12.0-15.5); MEAN CORPUSCULAR HEMOGLOBIN 29.9 pg (27.0-33.4); MEAN CORPUSCULAR HGB CONC 33.9 g/dL (32.0-36.0); MEAN CORPUSCULAR VOLUME 88 fl (80-97); PLATELET COUNT 116 10^3/uL (150-450); RED CELL DISTRIBUTION WIDTH 13.9 % (11.5-14.0); WHITE BLOOD COUNT 4.8 10^3/uL (4.0-10.5)
[2020-08-01 06:49] LABS: ALBUMIN 2.3 g/dL (3.5-5.0); ALKALINE PHOSPHATASE 160 U/L (38-126); ANION GAP 5 (5-19); ASPARTATE AMINO TRANSFERASE 32 U/L (14-36); BILIRUBIN,DIRECT 0.1 mg/dL (0.0-0.4); BILIRUBIN,TOTAL 0.2 mg/dL (0.2-1.3); BLOOD UREA NITROGEN 34 mg/dL (7-20); CALCIUM 8.3 mg/dL (8.4-10.2); CARBON DIOXIDE 20 mmol/L (22-30); CHLORIDE 109 mmol/L (98-107); GLUCOSE 201 mg/dL (75-110); POTASSIUM 3.8 mmol/L (3.6-5.0); TOTAL PROTEIN 4.8 g/dL (6.3-8.2)
[2020-08-01] MEDS: PANTOPRAZOLE SODIUM 40 MG VIAL IV SCH (07:12)
[2020-08-01] MEDS: INSULIN LISPRO 100 UNIT/ML 3 ML VIAL SUBCUT SCH ×4 (07:13→22:19)
[2020-08-01] MEDS: AMLODIPINE BESYLATE 10 MG TABLET PO SCH (09:57)
[2020-08-01] MEDS: METOPROLOL SUCCINATE 50 MG TAB.SR.24H PO SCH (09:57)
[2020-08-01] MEDS ORDERED: BISACODYL 10 MG SUPP.RECT PR PRN (13:20)
--- NOTE | 2020-08-01 13:25 | PDOC PROGRESS REPORT ---
Subjective Date:: 08/01/20 Subjective:: The patient is very unhappy with her diet. She wants to advance her diet. She exhibits very little insight into her medical condition. She also reports that she has not had a bowel movement since admission. Reason For Visit: GI BLEED Physical Exam Vital Signs: Temp Pulse Resp BP Pulse Ox 98.2 F 75 18 153/76 H 99 08/01/20 12:00 08/01/20 12:00 08/01/20 12:00 08/01/20 12:00 08/01/20 12:00 Intake & Output 07/31/20 08/01/20 08/02/20 06:59 06:59 06:59 Intake Total 3798 1020 Output Total 2100 1500 Balance 1698 -480 Weight 44.2 kg 45.4 kg General appearance: PRESENT: cooperative, mild distress - More upset about her diet than how she is feeling, well-developed Head exam: PRESENT: atraumatic, normocephalic Respiratory exam: PRESENT: clear to auscultation chai, symmetrical, unlabored. ABSENT: rales, rhonchi, tachypnea, wheezes Cardiovascular exam: PRESENT: RRR, +S1, +S2. ABSENT: bradycardia, diastolic murmur, irregular rhythm, systolic murmur, tachycardia GI/Abdominal exam: PRESENT: normal bowel sounds, soft, tenderness - Mild tenderness epigastric area. ABSENT: distended, guarding Rectal exam: PRESENT: deferred Gentrourinary exam: ABSENT: indwelling catheter Extremities exam: ABSENT: pedal edema Musculoskeletal exam: PRESENT: ambulatory, normal inspection. ABSENT: deformity, dislocation Neurological exam: PRESENT: alert, awake, oriented to person, oriented to place, oriented to situation. ABSENT: altered Psychiatric exam: PRESENT: other - Upset about her food. ABSENT: agitated, anxious Focused psych exam: ABSENT: delusional, paranoid, restlessness Results Laboratory Results: 08/01/20 05:30 08/01/20 05:30 08/01/20 08/01/20 05:30 05:30 WBC 4.8 RBC 3.40 L Hgb 10.2 L Hct 30.0 L MCV 88 MCH 29.9 MCHC 33.9 RDW 13.9 Plt Count 116 L Sodium 134.0 L Potassium 3.8 Chloride 109 H Carbon Dioxide 20 L Anion Gap 5 BUN 34 H Creatinine 3.05 H Est GFR ( Amer) 20 L Glucose 201 H Calcium 8.3 L Total Bilirubin 0.2 AST 32 Alkaline Phosphatase 160 H Total Protein 4.8 L Albumin 2.3 L 07/28/20 07/28/20 07/28/20 11:02 20:12 21:19 Troponin I 0.026 Cancelled 0.040 07/29/20 11:43 Troponin I 0.031 Impressions: Abdomen/Pelvis CTA 07/28/20 00:00 IMPRESSION: NO ABDOMINAL AORTIC ANEURYSM, DISSECTION OR SIGNIFICANT STENOSIS. NO SIGNIFICANT FINDINGS IN THE ABDOMEN. Chronic atrophic/dystrophic left kidney. Chronic dystrophic calcification left upper quadrant. Head CT 07/28/20 00:00 IMPRESSION: NORMAL BRAIN CT WITHOUT CONTRAST. EVIDENCE OF ACUTE STROKE: NO. Chest X-Ray 07/28/20 09:32 IMPRESSION: NO ACUTE RADIOGRAPHIC FINDING IN THE CHEST. Renal Ultrasound 07/29/20 00:00 IMPRESSION: Chronic medical renal disease. Atrophic left kidney. Bladder is now decompressed. Assessment and Plan - Diagnosis (1) Acute kidney injury Is this a current diagnosis for this admission?: Yes (2) GI bleed Qualifiers: GI bleed type/associated pathology: gastritis Is this a current diagnosis for this admission?: Yes (3) Hypertensive emergency Is this a current diagnosis for this admission?: Yes (4) Metabolic encephalopathy Is this a current diagnosis for this admission?: Yes (5) Hyperglycemia due to type 2 diabetes mellitus Qualifiers: Diabetes mellitus middle or intermediate school principal insulin use: with middle or intermediate school principal use Qualified Code(s): E11.65 - Type 2 diabetes mellitus with hyperglycemia; Z79.4 - skilled nursing (current) use of insulin Is this a current diagnosis for this admission?: Yes (6) Alcohol withdrawal Qualifiers: Complication of substance-induced condition: with unspecified complication Qualified Code(s): F10.239 - Alcohol dependence with withdrawal, unspecified Is this a current diagnosis for this admission?: Yes (7) Alcoholism Is this a current diagnosis for this admission?: Yes (8) Elevated troponin Is this a current diagnosis for this admission?: Yes (9) Constipation Qualifiers: Constipation type: slow transit constipation Qualified Code(s): K59.01 - Slow transit constipation Is this a current diagnosis for this admission?: Yes - Plan Summary Summary: (1) Acute kidney injury Is this a current diagnosis for this admission?: Yes Plan: - Crea 1.68>3.17>3.21 - +ve proteinuria in urine - Fena showed intrinsic renal - US renal chronic medical renal disease , atrophic left kidney - urine protein/crea - nephro consult suggest to continue IV fluids and monitor crea -Laboratory studies ordered for tomorrow. Serum creatinine slightly better today at 3.05. (2) GI bleed Qualifiers: GI bleed type/associated pathology: gastritis Is this a current diagnosis for this admission?: Yes Plan: - patient came in with coffee ground emesis and bloody stool - previous hx of GI bleed 10 years ago, not on aspirin or any blood thinner - hx of alcoholism - Hgb 14.7>10.2 baseline around 11 - VS normal - S/p EGD today showed gastritis no active ulcer - continue protonix - continue IV fluids - diet progressed to full liquid -Diet is now soft mechanical with cut meats. Advance as tolerated. (3) Metabolic encephalopathy Is this a current diagnosis for this admission?: Yes Plan: - IMPROVED -received 10 mg IV morphine and 1 mg of ativan - likely from 10 mg of morphine she got in the ED - CT head negative - s/p 1 dose of narcan. -Patient likely has some changes consistent with long-term alcohol use. Continue to monitor and support with thiamine (4) Hypertensive emergency Is this a current diagnosis for this admission?: Yes Plan: - has been high before - trop 0.02>0.04>0.03 EKG sinus rhythm - current BP 198/102 - received labetalol 20 mg IV, metoprolol 10 mg IV, vasotec 1.25 IV - PRN labetalol 20 IV q2 - clonidine patch - goal systolic BP not less than 160, diastolic BP not less than 90 - on amlo, clonidine and metoprolol -Blood pressure significantly improved. Continue current regimen. (5) Type 2 diabetes mellitus Qualifiers: Diabetes mellitus middle or intermediate school principal insulin use: without [facility] use Is this a current diagnosis for this admission?: Yes Plan: -on 5u of lispro with meals at home - put on SSI, accucheck q6, hypoglycemia protocol -Resumed 5 units of lispro at mealtime. Continue sliding scale. (6) Alcoholism Is this a current diagnosis for this admission?: Yes Plan: - per patient last drink 9 days ago - PRN ativan for withdrawal -Encourage sobriety post discharge (7) Elevated troponin Is this a current diagnosis for this admission?: Yes Plan: - trop 0.026>0.04>0.03, EKG sinus rhythm - likely due to elevated BP -Resolved (8) Alcohol withdrawal Qualifiers: Complication of substance-induced condition: with unspecified complication Qualified Code(s): F10.239 - Alcohol dependence with withdrawal, unspecified Is this a current diagnosis for this admission?: Yes Plan: - LACHO lucio - MVI, folate, Vit b12 - Ativan PRN -No acute withdrawal symptoms at this time (9) Constipation -Start scheduled and as needed stool softeners - Time Time Spent with patient: 25-34 minutes Medications reviewed and adjusted accordingly: Yes Anticipated Discharge Disposition: Home with Home Health Anticipated Discharge Timeframe: within 72 hours
[2020-08-01] MEDS ORDERED: BISACODYL 5 MG TABEC PO ONE (14:00)
[2020-08-01] MEDS: DOCUSATE SODIUM 100 MG CAPSULE PO SCH (18:02)
[2020-08-01] MEDS: PANTOPRAZOLE SODIUM 40 MG TABLET.DR PO SCH (18:03)
[2020-08-02] MEDS: SUCRALFATE 1 GM TABLET PO SCH ×3 (05:19→17:19)
[2020-08-02] MEDS: PANTOPRAZOLE SODIUM 40 MG TABLET.DR PO SCH ×2 (05:19→17:19)
[2020-08-02] MEDS: METOCLOPRAMIDE HCL INJ/PF 10 MG/2 ML SDV IV SCH ×3 (05:20→17:19)
[2020-08-02] MEDS: NORMAL SALINE 1000 ML 1,000 ML IV PRN ×2 (05:23→15:39)
[2020-08-02 08:46] LABS: ALBUMIN 2.3 g/dL (3.5-5.0); ALKALINE PHOSPHATASE 142 U/L (38-126); ASPARTATE AMINO TRANSFERASE 31 U/L (14-36); BILIRUBIN,DIRECT 0.2 mg/dL (0.0-0.4); BILIRUBIN,TOTAL 0.4 mg/dL (0.2-1.3); BLOOD UREA NITROGEN 39 mg/dL (7-20); GLUCOSE 219 mg/dL (75-110); PHOSPHORUS 3.2 mg/dL (2.5-4.5); POTASSIUM 4.7 mmol/L (3.6-5.0)
[2020-08-02 08:50] LABS: CARBON DIOXIDE 21 mmol/L (22-30); CHLORIDE 110 mmol/L (98-107)
[2020-08-02 08:53] LABS: ANION GAP 3 (5-19)
[2020-08-02] MEDS: INSULIN LISPRO 100 UNIT/ML 3 ML VIAL SUBCUT SCH ×7 (09:04→22:53)
[2020-08-02] MEDS: METOPROLOL SUCCINATE 50 MG TAB.SR.24H PO SCH (09:05)
[2020-08-02] MEDS: AMLODIPINE BESYLATE 10 MG TABLET PO SCH (09:05)
[2020-08-02] MEDS: DOCUSATE SODIUM 100 MG CAPSULE PO SCH ×2 (09:05→17:14)
--- NOTE | 2020-08-02 15:02 | PDOC PROGRESS REPORT ---
Subjective Date:: 08/02/20 Subjective:: DEEPTHI MARQUEZ is a 50 year old female, 50-year-old female with a history of hypertension, type 2 diabetes, pancreatitis, GERD presents to the emergency room today for evaluation after she has been vomiting blood bloody stool for the last 24 hours. The patient was very sedated when I saw her in room 530 and I was not able to get any type of history from her. Per ED notes she came in due to coffee ground emesis and bloody stool for the last 24 hrs. She has a history of pancreatitis and was complaining of abdominal pain, she was given 10 mg of IV morphine in the ED along with 1 mg of ativan for withdrawal. I suspect this is why she is very drowsy. She was also noted to have elevated BP 194/105 hence she was given labetalol IV push. Dr. Gillis from surgery was called who performed an EGD which revealed gastritis of the fundus and body of the stomach with digested blood, no active ulcers seen. She was given IV fluids and IV protonix and was admitted for further evaluation and management. D2 hospital stay 07/29/20 Patient was seen and examined at bedside. Seems much more awake today. Her BP remained very high throughout the night and unfortunately the PRN medications were not given. I have restarted the nitro drip because of this. Per RN who talked to a family member, there was a concern that she might be doing drugs on top of the alcohol abuse. UDS +ve for marijuana and opiates. patient was given morphine during admission. She claims her last drink was new years and her BAL on admission was <10 however she is very agitated and tremulous which is typical for alcohol withdrawal. She is nauseous but no further episode of coffee ground emesis. D3 07/30/20. Patient still complains of nausea and abdominal pain but is also demanding to eat. Creatinine continues to trend up nephrology consulted for input. She keeps requesting pain medications. BP more manageable today. D4 hospital stay. Patient was seen and examined at bedside. Again demanding that she wants to eat despite having stomach aches when she does. Crea still trending up however she is making good urine. Continue IV fluids per nephro. I told her she can have some grits but I am hesitant to put her on a regular diet. Would avoid opiates as well because of her kidney function and I also suspect she may be abusing pain opiates outside. D5 hospital stay 08/02/20. Patient was seen and examined at bedside. Much more reasonable today. Crea improved to 2.83 from 3.05. Less abdominal pain. Complaining of constipation, I added lactulose to senokot and docusate Reason For Visit: GI BLEED Physical Exam Vital Signs: Temp Pulse Resp BP Pulse Ox 97.3 F 75 17 151/83 H 100 08/02/20 11:16 08/02/20 11:16 08/02/20 11:16 08/02/20 11:16 08/02/20 11:16 Intake & Output 08/01/20 08/02/20 08/03/20 06:59 06:59 06:59 Intake Total 1020 1800 Output Total 1500 1650 Balance -480 150 Weight 45.4 kg 46.1 kg General appearance: PRESENT: no acute distress, cooperative Head exam: PRESENT: atraumatic, normocephalic Eye exam: PRESENT: EOMI, PERRLA Mouth exam: PRESENT: moist Neck exam: PRESENT: full ROM Respiratory exam: PRESENT: clear to auscultation chai, symmetrical, unlabored Cardiovascular exam: PRESENT: RRR, +S1, +S2 Pulses: PRESENT: +2 pedal pulses bilateral GI/Abdominal exam: PRESENT: normal bowel sounds, soft. ABSENT: rebound, tenderness Extremities exam: PRESENT: full ROM Musculoskeletal exam: PRESENT: full ROM Neurological exam: PRESENT: alert, awake, oriented to person, oriented to place, oriented to time, oriented to situation Skin exam: PRESENT: normal color Results Laboratory Results: 08/01/20 05:30 08/02/20 07:35 08/02/20 07:35 Sodium 131.8 L Potassium 4.7 Chloride 110 H Carbon Dioxide 21 L Anion Gap 3 L BUN 39 H Creatinine 2.83 H Est GFR ( Amer) 21 L Glucose 219 H Calcium 8.0 L Phosphorus 3.2 Magnesium 1.7 Total Bilirubin 0.4 AST 31 Alkaline Phosphatase 142 H Total Protein 5.0 L Albumin 2.3 L 07/28/20 07/28/20 07/28/20 11:02 20:12 21:19 Troponin I 0.026 Cancelled 0.040 07/29/20 11:43 Troponin I 0.031 Impressions: Abdomen/Pelvis CTA 07/28/20 00:00 IMPRESSION: NO ABDOMINAL AORTIC ANEURYSM, DISSECTION OR SIGNIFICANT STENOSIS. NO SIGNIFICANT FINDINGS IN THE ABDOMEN. Chronic atrophic/dystrophic left kidney. Chronic dystrophic calcification left upper quadrant. Head CT 07/28/20 00:00 IMPRESSION: NORMAL BRAIN CT WITHOUT CONTRAST. EVIDENCE OF ACUTE STROKE: NO. Chest X-Ray 07/28/20 09:32 IMPRESSION: NO ACUTE RADIOGRAPHIC FINDING IN THE CHEST. Renal Ultrasound 07/29/20 00:00 IMPRESSION: Chronic medical renal disease. Atrophic left kidney. Bladder is now decompressed. Assessment and Plan - Diagnosis (1) Acute kidney injury Is this a current diagnosis for this admission?: Yes (2) GI bleed Qualifiers: GI bleed type/associated pathology: gastritis Is this a current diagnosis for this admission?: Yes (3) Metabolic encephalopathy Is this a current diagnosis for this admission?: Yes (4) Hypertensive emergency Is this a current diagnosis for this admission?: Yes (5) Type 2 diabetes mellitus Qualifiers: Diabetes mellitus health analyst insulin use: without skilled nursing use Is this a current diagnosis for this admission?: Yes (6) Alcoholism Is this a current diagnosis for this admission?: Yes (7) Elevated troponin Is this a current diagnosis for this admission?: Yes (8) Alcohol withdrawal Qualifiers: Complication of substance-induced condition: with unspecified complication Qualified Code(s): F10.239 - Alcohol dependence with withdrawal, unspecified Is this a current diagnosis for this admission?: Yes - Plan Summary Summary: (1) Acute kidney injury Is this a current diagnosis for this admission?: Yes Plan: - Crea 1.68>3.17>3.21>2.83 - +ve proteinuria in urine - Fena showed intrinsic renal - US renal chronic medical renal disease , atrophic left kidney - urine protein/crea - nephro consult suggest to continue IV fluids and monitor crea - ctm. Crea is improving, if still downtrending tomorrow can likely be dischar ged (2) GI bleed Qualifiers: GI bleed type/associated pathology: gastritis Is this a current diagnosis for this admission?: Yes Plan: - patient came in with coffee ground emesis and bloody stool - previous hx of GI bleed 10 years ago, not on aspirin or any blood thinner - hx of alcoholism - Hgb 14.7>10.2 baseline around 11 - VS normal - S/p EGD today showed gastritis no active ulcer - continue protonix - continue IV fluids -Diet is now soft mechanical with cut meats. Advance as tolerated. (3) Metabolic encephalopathy Is this a current diagnosis for this admission?: Yes Plan: - IMPROVED -received 10 mg IV morphine and 1 mg of ativan - likely from 10 mg of morphine she got in the ED - CT head negative - s/p 1 dose of narcan. -Patient likely has some changes consistent with long-term alcohol use. Continue to monitor and support with thiamine (4) Hypertensive emergency Is this a current diagnosis for this admission?: Yes Plan: - has been high before - trop 0.02>0.04>0.03 EKG sinus rhythm - current BP 198/102 - received labetalol 20 mg IV, metoprolol 10 mg IV, vasotec 1.25 IV - PRN labetalol 20 IV q2 - clonidine patch - goal systolic BP not less than 160, diastolic BP not less than 90 - on amlo, clonidine and metoprolol -Blood pressure significantly improved. Continue current regimen. (5) Type 2 diabetes mellitus Qualifiers: Diabetes mellitus health analyst insulin use: without health analyst use Is this a current diagnosis for this admission?: Yes Plan: -on 5u of lispro with meals at home - put on SSI, accucheck q6, hypoglycemia protocol -Resumed 5 units of lispro at mealtime. Continue sliding scale. (6) Alcoholism Is this a current diagnosis for this admission?: Yes Plan: - per patient last drink 9 days ago - PRN ativan for withdrawal -Encourage sobriety post discharge (7) Elevated troponin Is this a current diagnosis for this admission?: Yes Plan: - trop 0.026>0.04>0.03, EKG sinus rhythm - likely due to elevated BP -Resolved (8) Alcohol withdrawal Qualifiers: Complication of substance-induced condition: with unspecified complication Qualified Code(s): F10.239 - Alcohol dependence with withdrawal, unspecified Is this a current diagnosis for this admission?: Yes Plan: - LACHO ar - MVI, folate, Vit b12 - Ativan PRN -No acute withdrawal symptoms at this time (9) Constipation -Start scheduled and as needed stool softeners - Time Time Spent with patient: 15-24 minutes Medications reviewed and adjusted accordingly: Yes Anticipated Discharge Disposition: Home with Home Health Anticipated Discharge Timeframe: within 48 hours
[2020-08-02] MEDS: LACTULOSE SYRUP 20 GM/30 ML UDCUP PO SCH (17:14)
[2020-08-03] MEDS: METOCLOPRAMIDE HCL INJ/PF 10 MG/2 ML SDV IV SCH ×3 (01:16→11:35)
[2020-08-03] MEDS: SUCRALFATE 1 GM TABLET PO SCH ×2 (01:16→05:13)
[2020-08-03] MEDS: PANTOPRAZOLE SODIUM 40 MG TABLET.DR PO SCH (05:13)
[2020-08-03] MEDS: INSULIN LISPRO 100 UNIT/ML 3 ML VIAL SUBCUT SCH ×4 (09:02→11:48)
[2020-08-03] MEDS: NORMAL SALINE 1000 ML 1,000 ML IV PRN (09:08)
--- NOTE | 2020-08-03 11:27 | PDOC DISCHARGE SUMMARY ---
Impression - Admit/DC Date/PCP Admission Date/Primary Care Provider: 07/28/20 11:18 LYLE ROBERSON, Discharge Date: 08/03/20 - Discharge Diagnosis (1) Acute kidney injury Is this a current diagnosis for this admission?: Yes (2) GI bleed Is this a current diagnosis for this admission?: Yes (3) Hypertensive emergency Is this a current diagnosis for this admission?: Yes (4) Metabolic encephalopathy Is this a current diagnosis for this admission?: Yes (5) Hyperglycemia due to type 2 diabetes mellitus Is this a current diagnosis for this admission?: Yes (6) Alcohol withdrawal Is this a current diagnosis for this admission?: Yes (7) Alcoholism Is this a current diagnosis for this admission?: Yes (8) Elevated troponin Is this a current diagnosis for this admission?: Yes (9) Constipation Is this a current diagnosis for this admission?: Yes - Assessment Summary: (1) Acute kidney injury Is this a current diagnosis for this admission?: Yes Plan: - Crea 1.68>3.17>3.21>2.83 - +ve proteinuria in urine - Fena showed intrinsic renal - US renal chronic medical renal disease , atrophic left kidney - urine protein/crea - nephro consult suggest to continue IV fluids and monitor crea - ctm. Crea is improving, if still downtrending tomorrow can likely be discharged -Creatinine is continuing to improve. Stable for discharge to home. (2) GI bleed Qualifiers: GI bleed type/associated pathology: gastritis Is this a current diagnosis for this admission?: Yes Plan: - patient came in with coffee ground emesis and bloody stool - previous hx of GI bleed 10 years ago, not on aspirin or any blood thinner - hx of alcoholism - Hgb 14.7>10.2 baseline around 11 - VS normal - S/p EGD today showed gastritis no active ulcer - continue protonix - continue IV fluids -Diet is now soft mechanical with cut meats. Advance as tolerated. Advance diet at home as discussed earlier (3) Metabolic encephalopathy Is this a current diagnosis for this admission?: Yes Plan: - IMPROVED -received 10 mg IV morphine and 1 mg of ativan - likely from 10 mg of morphine she got in the ED - CT head negative - s/p 1 dose of narcan. -Patient likely has some changes consistent with long-term alcohol use. Continue to monitor and support with thiamine Appears to be at baseline at this time (4) Hypertensive emergency Is this a current diagnosis for this admission?: Yes Plan: - has been high before - trop 0.02>0.04>0.03 EKG sinus rhythm - current BP 198/102 - received labetalol 20 mg IV, metoprolol 10 mg IV, vasotec 1.25 IV - PRN labetalol 20 IV q2 - clonidine patch - goal systolic BP not less than 160, diastolic BP not less than 90 - on amlo, clonidine and metoprolol -Blood pressure significantly improved. Continue current regimen. Stable for discharge at this time. Blood pressure has responded to the current regimen especially the addition of the clonidine patch. (5) Type 2 diabetes mellitus Qualifiers: Diabetes mellitus skilled nursing insulin use: without terminal computer operator use Is this a current diagnosis for this admission?: Yes Plan: -on 5u of lispro with meals at home - put on SSI, accucheck q6, hypoglycemia protocol -Resumed 5 units of lispro at mealtime. Continue sliding scale. Increased mealtime dose of Humalog and daily dose of Lantus (6) Alcoholism Is this a current diagnosis for this admission?: Yes Plan: - per patient last drink 9 days ago - PRN ativan for withdrawal -Encourage sobriety post discharge (7) Elevated troponin Is this a current diagnosis for this admission?: Yes Plan: - trop 0.026>0.04>0.03, EKG sinus rhythm - likely due to elevated BP -Resolved (8) Alcohol withdrawal Qualifiers: Complication of substance-induced condition: with unspecified complication Qualified Code(s): F10.239 - Alcohol dependence with withdrawal, unspecified Is this a current diagnosis for this admission?: Yes Plan: - LACHO lucio - MVI, folate, Vit b12 - Ativan PRN -No acute withdrawal symptoms at this time (9) Constipation -Start scheduled and as needed stool softeners -Patient did respond to several things but she feels prune juice works the best and therefore continue prune juice at home. - Additional Information Discharge Diet: Cardiac, Diabetic, Other (Comments) Discharge Activity: Activity As Tolerated Referrals: LYLE ROBERSON DO [Primary Care Provider] - 08/10/20 9:30 am Prescriptions: Sucralfate [Carafate 1 gm Tablet] 1 gm PO ACHS 14 Days #56 tablet Clonidine [Catapres-Tts 2 (0.2 mg/24 Hr) Transderm Ptch] 1 each TD Sa@1500 28 Days #4 patch.tdwk Insulin Lispro [Humalog Kwikpen U-100] 100 unit SQ AC #2 insuln.pen Metoclopramide HCl 5 mg PO AC 14 Days #42 tablet Pantoprazole Sodium [Protonix [address] Tablet] 40 mg PO BID@0600,1700 30 Days #60 tablet.dr Home Medications: Amlodipine Besylate [Norvasc 10 mg Tablet] 10 mg PO DAILY 07/07/20 Metoprolol Succinate [Toprol Xl 50 mg Tab.sr] 50 mg PO DAILY 07/28/20 Amlodipine Besylate [Norvasc 10 mg Tablet] 10 mg PO DAILY tablet 08/03/20 Clonidine [Catapres-Tts 2 (0.2 mg/24 Hr) Transderm Ptch] 1 each TD Sa@1500 28 Days #4 patch.tdwk 08/03/20 Insulin Lispro [Humalog Kwikpen U-100] 100 unit SQ AC #2 insuln.pen 08/03/20 Metoclopramide HCl 5 mg PO AC 14 Days #42 tablet 08/03/20 Pantoprazole Sodium [Protonix [address] Tablet] 40 mg PO BID@0600,1700 30 Days #60 tablet.dr 08/03/20 Sucralfate [Carafate 1 gm Tablet] 1 gm PO ACHS 14 Days #56 tablet 08/03/20 History of Present Illiness History of Present Illness: DEEPTHI MARQUEZ is a 50 year old female with a history of hypertension, type 2 diabetes, pancreatitis, GERD presents to the emergency room today for evaluation after she has been vomiting blood bloody stool for the last 24 hours. The patient was very sedated when I saw her in room 530 and I was not able to get any type of history from her. Per ED notes she came in due to coffee ground emesis and bloody stool for the last 24 hrs. She has a history of pancreatitis and was complaining of abdominal pain, she was given 10 mg of IV morphine in the ED along with 1 mg of ativan for withdrawal. I suspect this is why she is very drowsy. She was also noted to have elevated BP 194/105 hence she was given labetalol IV push. Dr. Gillis from surgery was called who performed an EGD which revealed gastritis of the fundus and body of the stomach with digested blood, no active ulcers seen. She was given IV fluids and IV protonix and was admitted for further evaluation and management. Hospital Course Hospital Course: See details above Physical Exam Vital Signs: Temp Pulse Resp BP Pulse Ox 98.2 F 80 17 170/92 H 96 08/03/20 08:00 08/03/20 08:00 08/03/20 08:00 08/03/20 08:00 08/03/20 08:00 Intake & Output 08/02/20 08/03/20 08/04/20 06:59 06:59 06:59 Intake Total 1800 1000 1000 Output Total 1650 Balance 150 1000 1000 Weight 46.1 kg 61.7 kg General appearance: PRESENT: no acute distress, cooperative, well-developed Head exam: PRESENT: atraumatic, normocephalic Respiratory exam: PRESENT: clear to auscultation chai, symmetrical, unlabored. ABSENT: rales, rhonchi, tachypnea, wheezes Cardiovascular exam: PRESENT: RRR, +S1, +S2, systolic murmur. ABSENT: bradycardia, diastolic murmur, irregular rhythm, tachycardia GI/Abdominal exam: PRESENT: normal bowel sounds, soft. ABSENT: tenderness Rectal exam: PRESENT: deferred Neurological exam: PRESENT: alert, awake, oriented to person, oriented to place, oriented to situation. ABSENT: altered Psychiatric exam: PRESENT: appropriate affect. ABSENT: agitated, anxious Results Laboratory Results: WBC 4.8 10^3/uL (4.0-10.5) 08/01/20 05:30 RBC 3.40 10^6/uL (3.72-5.28) L 08/01/20 05:30 Hgb 10.2 g/dL (12.0-15.5) L 08/01/20 05:30 Hct 30.0 % (36.0-47.0) L 08/01/20 05:30 MCV 88 fl (80-97) 08/01/20 05:30 MCH 29.9 pg (27.0-33.4) 08/01/20 05:30 MCHC 33.9 g/dL (32.0-36.0) 08/01/20 05:30 RDW 13.9 % (11.5-14.0) 08/01/20 05:30 Plt Count 116 10^3/uL (150-450) L 08/01/20 05:30 Lymph % (Auto) 25.8 % (13-45) 07/31/20 05:46 [place] % (Auto) 10.1 % (3-13) 07/31/20 05:46 Eos % (Auto) 2.7 % (0-6) 07/31/20 05:46 Baso % (Auto) 0.4 % (0-2) 07/31/20 05:46 Absolute Neuts (auto) 3.6 10^3/uL (1.7-8.2) 07/31/20 05:46 Absolute Lymphs (auto) 1.5 10^3/uL (0.5-4.7) 07/31/20 05:46 Absolute Monos (auto) 0.6 10^3/uL (0.1-1.4) 07/31/20 05:46 Absolute Eos (auto) 0.2 10^3/uL (0.0-0.6) 07/31/20 05:46 Absolute Basos (auto) 0.0 10^3/uL (0.0-0.2) 07/31/20 05:46 Seg Neutrophils % 61.0 % (42-78) 07/31/20 05:46 PT 12.1 SEC (11.4-15.4) 07/28/20 11:02 INR 0.87 07/28/20 11:02 APTT 20.1 SEC (23.5-35.8) L 07/28/20 11:02 Sodium 131.8 mmol/L (137-145) L 08/02/20 07:35 Potassium 4.7 mmol/L (3.6-5.0) 08/02/20 07:35 Chloride 110 mmol/L (98-107) H 08/02/20 07:35 Carbon Dioxide 21 mmol/L (22-30) L 08/02/20 07:35 Anion Gap 3 (5-19) L 08/02/20 07:35 BUN 39 mg/dL (7-20) H 08/02/20 07:35 Creatinine 2.83 mg/dL (0.52-1.25) H 08/02/20 07:35 Est GFR ( Amer) 21 (>60) L 08/02/20 07:35 Est GFR (MDRD) Non-Af 18 (>60) L 08/02/20 07:35 Glucose 219 mg/dL (75-110) H 08/02/20 07:35 POC Glucose 246 mg/dL (70-110) H 08/03/20 06:24 Lactic Acid 1.2 mmol/L (0.7-2.1) 07/28/20 12:10 Calcium 8.0 mg/dL (8.4-10.2) L 08/02/20 07:35 Phosphorus 3.2 mg/dL (2.5-4.5) 08/02/20 07:35 Magnesium 1.7 mg/dL (1.6-2.3) 08/02/20 07:35 Total Bilirubin 0.4 mg/dL (0.2-1.3) 08/02/20 07:35 Direct Bilirubin 0.2 mg/dL (0.0-0.4) 08/02/20 07:35 Neonat Total Bilirubin Not Reportable 08/02/20 07:35 Neonat Direct Bilirubin Not Reportable 08/02/20 07:35 Neonat Indirect Bili Not Reportable 08/02/20 07:35 AST 31 U/L (14-36) 08/02/20 07:35 ALT 9 U/L (<35) 08/02/20 07:35 Alkaline Phosphatase 142 U/L (38-126) H 08/02/20 07:35 Troponin I 0.031 ng/mL 07/29/20 11:43 Total Protein 5.0 g/dL (6.3-8.2) L 08/02/20 07:35 Albumin 2.3 g/dL (3.5-5.0) L 08/02/20 07:35 Lipase 74.2 U/L (23-300) 07/28/20 04:28 Urine Color YELLOW 07/28/20 09:44 Urine Appearance CLEAR 07/28/20 09:44 Urine pH 6.0 (5.0-9.0) 07/28/20 09:44 Ur Specific [place] 1.018 07/28/20 09:44 Urine Protein >=500 mg/dL (NEGATIVE) H 07/28/20 09:44 Urine Glucose (UA) >=500 mg/dL (NEGATIVE) H 07/28/20 09:44 Urine Ketones NEGATIVE mg/dL (NEGATIVE) 07/28/20 09:44 Urine Blood SMALL (NEGATIVE) H 07/28/20 09:44 Urine Nitrite NEGATIVE (NEGATIVE) 07/28/20 09:44 Urine Bilirubin NEGATIVE (NEGATIVE) 07/28/20 09:44 Urine Urobilinogen NEGATIVE mg/dL (<2.0) 07/28/20 09:44 Ur Leukocyte Esterase NEGATIVE (NEGATIVE) 07/28/20 09:44 Urine WBC (Auto) 1 /HPF 07/28/20 09:44 Urine RBC (Auto) 2 /HPF 07/28/20 09:44 Squamous Epi Cells Auto <1 /HPF 07/28/20 09:44 Urine Mucus (Auto) RARE /LPF 07/28/20 09:44 Urine Creatinine 75.4 mg/dL (15-278) 07/29/20 14:12 Urine Creatinine 76.1 mg/dL (15-278) 07/29/20 14:12 Protein/Creatinin Ratio 12.1 mg/mg (0.0-0.2) H 07/29/20 14:12 Urine Sodium 81 mmol/L (30-90) 07/29/20 14:12 Urine Total Protein 908.7 mg/dL (<12) H 07/29/20 14:12 Urine Ascorbic Acid NEGATIVE (NEGATIVE) 07/28/20 09:44 POC Gastric Occult Bld POSITIVE (NEGATIVE) 07/28/20 04:43 POC Stool Occult Blood POSITIVE (NEGATIVE) 07/28/20 04:40 Urine Opiates Screen UNCONFIRMED POSITIVE 07/29/20 14:12 Urine Methadone Screen NEGATIVE 07/29/20 14:12 Ur Barbiturates Screen NEGATIVE 07/29/20 14:12 Ur Phencyclidine Scrn NEGATIVE 07/29/20 14:12 Ur Amphetamines Screen NEGATIVE 07/29/20 14:12 U Benzodiazepines Scrn NEGATIVE 07/29/20 14:12 Urine Cocaine Screen NEGATIVE 07/29/20 14:12 U Marijuana (THC) Screen UNCONFIRMED POSITIVE 07/29/20 14:12 Serum Alcohol < 10 mg/dL (NONE DETECTED) 07/28/20 04:28 Influenza A (RT-PCR) NEGATIVE (NEGATIVE) 07/28/20 11:02 Influenza B (RT-PCR) NEGATIVE (NEGATIVE) 07/28/20 11:02 RSV (RT-PCR) NEGATIVE (NEGATIVE) 07/28/20 11:02 SARS-CoV-2 Rap RNA(RT-PCR) NEGATIVE (NEGATIVE) 07/28/20 11:02 Blood Type B POSITIVE 07/28/20 13:18 Antibody Screen NEGATIVE 07/28/20 13:18 07/28/20 07/28/20 07/28/20 11:02 20:12 21:19 Troponin I 0.026 Cancelled 0.040 07/29/20 11:43 Troponin I 0.031 Impressions: Abdomen/Pelvis CTA 07/28/20 00:00 IMPRESSION: NO ABDOMINAL AORTIC ANEURYSM, DISSECTION OR SIGNIFICANT STENOSIS. NO SIGNIFICANT FINDINGS IN THE ABDOMEN. Chronic atrophic/dystrophic left kidney. Chronic dystrophic calcification left upper quadrant. Head CT 07/28/20 00:00 IMPRESSION: NORMAL BRAIN CT WITHOUT CONTRAST. EVIDENCE OF ACUTE STROKE: NO. Chest X-Ray 07/28/20 09:32 IMPRESSION: NO ACUTE RADIOGRAPHIC FINDING IN THE CHEST. Renal Ultrasound 07/29/20 00:00 IMPRESSION: Chronic medical renal disease. Atrophic left kidney. Bladder is now decompressed. Plan Health Concerns: Continued alcohol use and patient with multiple comorbidities including gastritis and duodenitis causing GI bleed Plan of Treatment: Medications as above. Encourage abstinence from alcohol. Goals: Since for alcohol. Stabilization of gastric mucosa and good regimen for control of comorbidities. Time Spent: Greater than 30 Minutes Stroke Is this a Stroke Patient?: No Acute Heart Failure Is this a Heart Failure Patient?: No
[2020-08-03] MEDS: AMLODIPINE BESYLATE 10 MG TABLET PO SCH (11:35)
[2020-08-03] MEDS: METOPROLOL SUCCINATE 50 MG TAB.SR.24H PO SCH (11:35)
[2020-08-03] MEDS: DOCUSATE SODIUM 100 MG CAPSULE PO SCH (11:40)
[2020-08-03] MEDS: LACTULOSE SYRUP 20 GM/30 ML UDCUP PO SCH (11:40)
[2020-08-03 12:48] VITALS: BP 198/86
== END 2020-08-03 12:47 | disposition home or self-care (01) | DRG 377 ==
LOC: ER 04:23 → EH 11:18 → 5 12:37 → 4N 08-02 15:30
PROVIDERS: ADMIT Internal Medicine; ATTEND Hospitalist
PROC: 0DB68ZX Excision of Stomach, Via Natural or Artificial Opening Endoscopic, Diagnostic (ICD-10-PCS; 2020-07-28)
PROC: 0DB98ZX Excision of Duodenum, Via Natural or Artificial Opening Endoscopic, Diagnostic (ICD-10-PCS; principal; 2020-07-28 14:30)
DX: K92.0 Hematemesis (principal); G92 Toxic encephalopathy; I16.1 Hypertensive emergency; F10.239 Alcohol dependence with withdrawal, unspecified; N17.9 Acute kidney failure, unspecified; K86.0 Alcohol-induced chronic pancreatitis; K92.1 Melena; F11.10 Opioid abuse, uncomplicated; I10 Essential (primary) hypertension; E11.9 Type 2 diabetes mellitus without complications; K21.9 Gastro-esophageal reflux disease without esophagitis; T40.2X5A Adverse effect of other opioids, initial encounter; D64.9 Anemia, unspecified; K29.70 Gastritis, unspecified, without bleeding; K29.80 Duodenitis without bleeding; Y92.230 Patient room in hospital as the place of occurrence of the external cause; K59.00 Constipation, unspecified; F17.200 Nicotine dependence, unspecified, uncomplicated; I12.9 Hypertensive chronic kidney disease with stage 1 through stage 4 chronic kidney disease, or unspecified chronic kidney disease; E11.22 Type 2 diabetes mellitus with diabetic chronic kidney disease; N18.31 Chronic kidney disease, stage 3a; E86.0 Dehydration; Z20.822 Contact with and (suspected) exposure to COVID-19; F12.20 Cannabis dependence, uncomplicated; Z87.19 Personal history of other diseases of the digestive system; R80.9 Proteinuria, unspecified; Z88.2 Allergy status to sulfonamides; Z88.0 Allergy status to penicillin; Z88.5 Allergy status to narcotic agent
CPT/HCPCS: 36415; 43239; 70450; 71045; 731; 74174; 76770; 80053; 80307; 81001; 82270; 82271; 82570; 82962; 83605; 83690; 83735; 84100; 84156; 84300; 84484; 85025; 85027; 85610; 85730; 86850; 86900; 86901; 88305; 93005; 93010; 96361; 96365; 96375; 96376; 99140; 99285; 0241U; C9113; C9803; J0171; J1610; J1815; J2060; J2270; J2310; J2405; J2704; J2765; J3490; J7030; J7040